=== PATIENT | female | born 1990 | race Caucasian/White ===

== ENCOUNTER 2023-01-30 08:33 | Emergency (ER) | payer MEDICAID, SELFPAY ==
[2023-01-30 08:44] VITALS: BP 118/69; PULSE 78; RESP 16; TEMP 36.2; O2SAT 98; BMI 38.4
--- NOTE | 2023-01-30 09:41 | ED.FEMALEGU ---
HPI - Female Genitourinary General Time Seen by Provider: 09:41 Date Seen: 01/30/23 Chief complaint: Abdominal Pain Stated complaint: lower abdominal pain,mentrual bleeding x 1 month Time Seen by Provider: 01/30/23 09:40 Source: patient and RN notes reviewed Mode of arrival: ambulatory Limitations: no limitations History of Present Illness HPI Narrative: Cassie is a 32-year-old female coming in with vaginal bleeding for over a month now. She has a Nexplanon in place, had it replaced 1 year ago and had had 1 for 3 years prior to that. She sees a Dr. Toussaint elsewhere. She has never had bleeding like this on the Nexplanon. Does sometimes gets a sharp pain in the left lower pelvic area. She states bleeding at times as heavy. Denies any symptomatic blood loss symptoms such as dizziness, weakness, etc. Patient : No Related Data Home Medications Medication Instructions Recorded Confirmed bupropion HCl 150 mg tablet,12 hr 150 mg PO DAILY 01/30/23 01/30/23 sustained-release (Wellbutrin SR) escitalopram oxalate PO 01/30/23 hydroxyzine HCl 10 mg tablet 10 mg PO TID-QID PRN 01/30/23 01/30/23 metformin 500 mg 24 hr 500 mg PO DAILY 01/30/23 01/30/23 tablet,extended release (Glumetza) prazosin 1 mg capsule (Minipress) 1 mg PO DAILY 01/30/23 01/30/23 semaglutide (weight loss) 0.5 0.5 mg subcut QWEEK 01/30/23 01/30/23 mg/0.5 mL subcutaneous pen injector (Wegovy) Allergies Allergy/AdvReac Type Severity Reaction Status Date / Time vancomycin Allergy Intermediate Hives Verified 01/30/23 08:56 Review of Systems Status of ROS: Reports: 6 or more systems reviewed and unremarkable except as noted in History and below Exam Const: Vital Signs, click to edit/add: Vital Signs - 24 hr 01/30/23 08:44 Temperature 97.1 F L Pulse Rate [Pulse Oximeter] 78 Pulse Rate [Right Pulse Oximeter] 78 Respiratory Rate 16 Blood Pressure [Ri ght Upper Arm] 118/69 Pulse Oximetry 98 Oxygen Delivery Me thod Room Air Documenting provider has reviewed patient's vital signs: yes Common normals: no apparent distress, oriented x3, no limitations, healthy appearing and alert General appearance: cooperative, comfortable, well kempt and well developed Nutritional appearance: overweight HENMT: Common normals: normocephalic, head/scalp atraumatic, hearing grossly normal bilaterally and external nose normal Head and scalp: normocephalic and atraumatic Face and sinus: normal facial exam Nose: external nose normal Eye: Common normals: PERRL, EOMs intact bilaterally, conjunctivae normal and no scleral icterus Conjunctiva: conjunctiva(e) normal Pupil: PERRL Neck & C-Spine: Common normals: full ROM, no lymphadenopathy, supple and thyroid normal Thyroid: thyroid normal Resp: Common normals: normal respiratory effort, no retractions, no use of accessory muscles and clear to auscultation bilaterally Auscultation: clear to auscultation bilaterally Cardio: Common normals: regular rate, regular rhythm, S1 normal heart sound, S2 normal heart sound, no gallops, no clicks and no murmurs Rate: regular rate Rhythm: regular rhythm Heart sounds: S1 normal and S2 normal GI: Common normals: Normal to inspection, nondistended, normoactive bowel sounds present, soft to palpation, non-tender, no hepatosplenomegaly and no masses Palpation: soft and no hepatosplenomegaly Neuro: Common normals: oriented x3 Sensorium/orientation: alert Psych: Appearance: well kempt Course Course Hospital Course: Reviewed recommended workup with patient including baseline labs, confirmation of negative status, screening thyroid abnormalities with TSH and CBC to ensure no significant concerning anemia. Would also recommend architectural the you with pelvic ultrasound. Patient would like to proceed with these in the ED today. Have reviewed with her that if these tests come back normal, likely irregular bleeding which can be associated with hormonal contraceptives including the Nexplanon. Vital Signs Vital signs: Initial Vital Signs Temperature 97.1 F L 01/30/23 08:44 Temperature Source Temporal Artery Scan 01/30/23 08:44 Pulse Rate 78 01/30/23 08:44 Respiratory Rate 16 01/30/23 08:44 Blood Pressure 118/69 01/30/23 08:44 Blood Pressure Mean 85 01/30/23 08:44 Blood Pressure Position Sitting 01/30/23 08:44 Pulse Oximetry 98 01/30/23 08:44 Oxygen Delivery Method Room Air 01/30/23 08:44 Vital Signs Temperature 97.1 F L 01/30/23 08:44 Pulse Rate 78 01/30/23 08:44 Respiratory Rate 16 01/30/23 08:44 Blood Pressure 118/69 01/30/23 08:44 Pulse Oximetry 98 01/30/23 08:44 Oxygen Delivery Method Room Air 01/30/23 08:44 Temperature 97.1 F L 01/30/23 08:44 Pulse Rate 78 01/30/23 08:44 Respiratory Rate 16 01/30/23 08:44 Blood Pressure 118/69 01/30/23 08:44 Pulse Oximetry 98 01/30/23 08:44 Oxygen Delivery Method Room Air 01/30/23 08:44 MDM - Female Genitourinary Lab Data Attestation: I reviewed the patient's lab results. Labs: Lab Results 01/30/23 Range/Units 10:21 WBC 8.70 (4.50-11.00) K/uL RBC 4.44 (4.00-5.20) m/uL Hgb 12.3 (12.0-16.0) gm/dL Hct 38.9 (33.0-51.0) % MCV 88 (80-100) fL MCH 28 (26-34) pg MCHC 32 (32-36) gm/dL RDW Coeff of Shantelle 13.2 (11.5-15.5) % Plt Count 244 (140-440) K/uL Neut % (Auto) 60.9 (42.0-72.0) % Lymph % (Auto) 29.4 (20-44) % [place] % (Auto) 6.1 (0.0-11.0) % Eos % (Auto) 2.5 (0.0-7.0) % Baso % (Auto) 0.5 (0.0-3.0) % Neut # (Auto) 5.30 (1.7-7.0) K/uL Lymph # (Auto) 2.56 (0.90-2.90) K/uL [place] # (Auto) 0.50 (0.00-0.90) K/UL Eos # (Auto) 0.22 (0.00-0.50) K/uL Baso # (Auto) 0.04 (0.00-0.30) K/uL Abs Immat Gran (auto) 0.05 (0.00-0.30) K/uL Imm/Tot Granulo (auto) 0.6 % Diff Slide Review Acceptable Review (Acceptable) TSH 1.230 (0.270-4.200) uIU/mL HCG, Qual Negative (Negative) Imaging Data US pelvis: Attestation: I have reviewed the pertinent imaging results. Radiologist's impression: Patient: CASSIE IVAN Facility:?[facility] Patient ID:?[id number] Site Patient ID:?[id number]. Site :?[id number] Study:?US Pelvis TRANSABDOMINAL AND TRANSVAGINAL-01/30/2023 11:07:52 AM Ordering Physician:Gregory Bañuelos Final Report: CLINICAL HISTORY: BLEEDING X 1 MONTH, LLQ PAIN TECHNIQUE: 2D rabago scale ultrasound. In addition color Doppler and spectral Doppler analysis was performed of the pelvis using a transabdominal and transvaginal approach. FINDINGS: The myometrium has a mildly heterogeneous echotexture. section scar noted. The uterus measures 8.4 x 3.9 x 4.9 cm. The endometrial lining measures 4 mm in thickness. The right ovary measures 3.2 x 2.2 x 2.3 cm in size and the left ovary measures 4.0 x 0.9 x 2.0 cm. Simple right ovarian cyst is present measuring 2.3 cm with an adjacent smaller daughter cyst. The ovaries demonstrate normal arterial and venous blood flow on color Doppler and spectral Doppler analysis. There are no suspicious fluid collections within the cul-de-sac. IMPRESSION: No evidence of ovarian torsion or excess pelvic free fluid. Endometrial thickness 4 millimeters. No endometrial fluid. No uterine fibroid. Dictated by Bryn Davis MD @ 01/30/2023 11:46:32 AM (Electronic Signature) Discharge Plan Discharge Clinical Impression: Menometrorrhagia Patient Disposition: Home, Self-Care Condition: Stable Instructions: Abnormal (Dysfunctional) Uterine Bleeding (ED), Menorrhagia (ED) Additional Instructions: Pelvic ultrasound, thyroid testing are all normal. There is no evidence of anemia on your blood work. You will need to follow-up with your primary care provider or splitting machine feeder to discuss further management. This is likely dysfunctional uterine bleeding that is causes it or contributed to by the Nexplanon implant. Activity Level: No Restrictions and Activity as Tolerated Prescriptions: No Action bupropion HCl [Wellbutrin SR] 150 mg tablet sustained-release 12 hr 150 mg PO DAILY escitalopram oxalate [Lexapro] PO Wegovy 0.5 mg/0.5 mL pen injector 0.5 mg subcut QWEEK hydroxyzine HCl 10 mg tablet 10 mg PO TID-QID PRN metformin [Glumetza] 500 mg tablet,ER jessica.retention 24 hr 500 mg PO DAILY prazosin [Minipress] 1 mg capsule 1 mg PO DAILY Follow Up/Referrals: Provider,Not a Local [Primary Care Provider] - Stand Alone Forms: [employer] Info Instructions
--- NOTE | 2023-01-30 09:50 | CRLHL7_ITS ---
For Patients: As a result of the Century Cures Act, medical imaging exams and procedure reports are released immediately into your electronic medical record. You may view this report before your referring provider. If you have questions, please contact your health care provider. CLINICAL HISTORY: BLEEDING X 1 MONTH, LLQ PAIN TECHNIQUE: 2D rabago scale ultrasound. In addition color Doppler and spectral Doppler analysis was performed of the pelvis using a transabdominal and transvaginal approach. FINDINGS: The myometrium has a mildly heterogeneous echotexture. section scar noted. The uterus measures 8.4 x 3.9 x 4.9 cm. The endometrial lining measures 4 mm in thickness. The right ovary measures 3.2 x 2.2 x 2.3 cm in size and the left ovary measures 4.0 x 0.9 x 2.0 cm. Simple right ovarian cyst is present measuring 2.3 cm with an adjacent smaller daughter cyst. The ovaries demonstrate normal arterial and venous blood flow on color Doppler and spectral Doppler analysis. There are no suspicious fluid collections within the cul-de-sac. IMPRESSION: No evidence of ovarian torsion or excess pelvic free fluid. Endometrial thickness 4 millimeters. No endometrial fluid. No uterine fibroid. Dictated by Bryn Davis MD @ 01/30/2023 11:46:32 AM (Electronically Signed)
[2023-01-30 10:38] LABS: Basophils Absolute Auto 0.04 K/uL (0.00-0.30); Basophils Percent Auto 0.5 % (0.0-3.0); Eosinophils Absolute Auto 0.22 K/uL (0.00-0.50); Eosinophils Percent Auto 2.5 % (0.0-7.0); Hematocrit 38.9 % (33.0-51.0); Hemoglobin* 12.3 gm/dL (12.0-16.0); Immature Granulocytes Abs Auto 0.05 K/uL (0.00-0.30); Immature Granulocytes Pct Auto 0.6 %; Lymphocytes Absolute Auto 2.56 K/uL (0.90-2.90); Lymphocytes Percent Auto 29.4 % (20-44); Mean Corpuscular HGB Conc 32 gm/dL (32-36); Mean Corpuscular Hemoglobin 28 pg (26-34); Mean Corpuscular Volume 88 fL (80-100); Monocytes Percent Auto 6.1 % (0.0-11.0); Neutrophils Percent Auto 60.9 % (42.0-72.0); RDW Coefficient of Variation % 13.2 % (11.5-15.5); Red Blood Count 4.44 m/uL (4.00-5.20)
[2023-01-30 10:42] LABS: Slide Review Reflex Yes
[2023-01-30 11:02] LABS: HCG Qualitative Serum* Negative (Negative)
[2023-01-30 11:15] LABS: Platelet Count* 244 K/uL (140-440)
[2023-01-30 11:30] LABS: Slide Review Acceptable Review (Acceptable)
== END 2023-01-30 12:42 | disposition home or self-care (01) ==
PROVIDERS: Emergency Provider Family Medicine
DX: N92.1 Excessive and frequent menstruation with irregular cycle (principal)
CPT/HCPCS: 36415; 76830; 76856; 84443; 84703; 85025; 93976; 99284

== ENCOUNTER 2023-02-20 12:42 | Emergency (ER) | payer MEDICAID, SELFPAY ==
[2023-02-20 12:55] VITALS: BP 125/79; PULSE 86; RESP 24; TEMP 35.4; O2SAT 98; BMI 38.4
--- NOTE | 2023-02-20 13:13 | ED.GENADULT ---
HPI - General Adult General Chief complaint: Cough Stated complaint: Covid+, chest pain, headache Time Seen by Provider: 02/20/23 12:55 Source: patient Mode of arrival: ambulatory Limitations: no limitations History of Present Illness HPI narrative: 32-year-old female coming in today complaining of cough. Patient tested positive for COVID-19 on Sunday. She states that she continues to have fevers on and off, last one was last night it was up to 101. She feels short of breath when she is having a coughing spell. She is concerned because she does not have any more inhalers at home, she has not needed to use any inhalers for a long time at she has not been ill. She states that she has exercise induced asthma. She denies any chest pain or abdominal discomfort. Appetite has been down. Related Data Home Medications Medication Instructions Recorded Confirmed bupropion HCl 150 mg tablet,12 hr 150 mg PO DAILY 01/30/23 01/30/23 sustained-release (Wellbutrin SR) escitalopram oxalate PO 01/30/23 hydroxyzine HCl 10 mg tablet 10 mg PO TID-QID PRN 01/30/23 01/30/23 metformin 500 mg 24 hr 500 mg PO DAILY 01/30/23 01/30/23 tablet,extended release (Glumetza) prazosin 1 mg capsule (Minipress) 1 mg PO DAILY 01/30/23 01/30/23 semaglutide (weight loss) 0.5 0.5 mg subcut QWEEK 01/30/23 01/30/23 mg/0.5 mL subcutaneous pen injector (Wegovy) Allergies Allergy/AdvReac Type Severity Reaction Status Date / Time vancomycin Allergy Intermediate Hives Verified 01/30/23 08:56 Review of Systems Status of ROS: Reports: 10 or more systems reviewed and unremarkable except as noted in History and below PFSH PFS Social History Smoking Status: Current every day smoker What tobacco products do you use: cigarettes Do you use any of these nicotine containing products: Vaping Products Second hand tobacco smoke exposure: No How often do you have a drink containing alcohol: never How often do you have six or more drinks on one occasion: Never AUDIT-C Alcohol total score: 0 Non-prescribed substance use: denies use service: No Exam Narrative: Exam Narrative: Obese, well-developed patient in no acute distress. Alert and oriented. Answers questions appropriately. Mood and affect are appropriate. Thoughts are goal oriented and rational. No tangential or magical thinking noted. Patient speaks in full sentences without needing to catch their breath. Coughs frequently. HEENT: Normocephalic atraumatic. Pupils are equally round reactive to light. Extraocular muscles are intact. Conjunctivae are moist without any icterus noted. Moist mucous membranes. Posterior pharynx is normal. Neck is soft without any lymphadenopathy. Cardiovascular: Heart is regular rate and rhythm S1 and S2 are present without any murmurs. Lungs: Clear to auscultation bilaterally no wheezes rhonchi or rales are appreciated. Patient takes deep breaths without any discomfort. Abdomen: Soft and nontender nondistended with normal bowel sounds. Skin: Well perfused without any obvious rashes. Const: Vital Signs, click to edit/add: Vital Signs - 24 hr 02/20/23 12:55 Temperature 95.8 F L Pulse Rate [Pulse Oximeter] 86 Respiratory Rate 24 [facility] 125/79 Pulse Oximetry 98 Oxygen Delivery Me thod Room Air Course Vital Signs Vital signs: Initial Vital Signs Temperature 95.8 F L 02/20/23 12:55 Temperature Source Temporal Artery Scan 02/20/23 12:55 Pulse Rate 86 02/20/23 12:55 Pulse Rhythm Regular 02/20/23 12:55 Respiratory Rate 24 02/20/23 12:55 Blood Pressure 125/79 02/20/23 12:55 Blood Pressure Mean 94 02/20/23 12:55 Blood Pressure Position Supine 02/20/23 12:55 Pulse Oximetry 98 02/20/23 12:55 Oxygen Delivery Method Room Air 02/20/23 12:55 Vital Signs Temperature 95.8 F L 02/20/23 12:55 Pulse Rate 86 02/20/23 12:55 Respiratory Rate 24 02/20/23 12:55 Blood Pressure 125/79 02/20/23 12:55 Pulse Oximetry 98 02/20/23 12:55 Oxygen Delivery Method Room Air 02/20/23 12:55 Temperature 95.8 F L 02/20/23 12:55 Pulse Rate 86 02/20/23 12:55 Respiratory Rate 24 02/20/23 12:55 Blood Pressure 125/79 08/29/23 12:55 Pulse Oximetry 98 02/20/23 12:55 Oxygen Delivery Method Room Air 02/20/23 12:55 Medical Decision Making MDM Narrative Medical decision making narrative: 32-year-old female with COVID-19. She states that she felt run down on Sunday but the coughing and fever started on Sunday. Therefore, we are within 72 hours of initiation of symptoms. Given that she has normal vital signs and is not feeling short of breath, I do not think further testing is needed at this time. Given that she does have a history of exercise-induced asthma I will put her on Paxil of id. I did look through the liver pool COVID-19 chart to make sure there are no significant interactions with her multiple medications. I do not feel the need to test her creatinine at this time as she has no history of kidney disease and she is young. I also send her home with a prescription for albuterol. These 2 prescriptions were hand written as she needs to show them to her physician as she is a restricted recipient when it comes to where she gets her medications. Discharge Plan Discharge Clinical Impression: COVID-19 Patient Disposition: Home, Self-Care Condition: Stable Additional Instructions: Take Paxlovid as prescribed. Use inhaler as needed. Return to ER if you are getting worse or develop any concerning symptoms. Both medications hand written. Prescriptions: No Action bupropion HCl [Wellbutrin SR] 150 mg tablet sustained-release 12 hr 150 mg PO DAILY escitalopram oxalate [Lexapro] PO Wegovy 0.5 mg/0.5 mL pen injector 0.5 mg subcut QWEEK hydroxyzine HCl 10 mg tablet 10 mg PO TID-QID PRN metformin [Glumetza] 500 mg tablet,ER jessica.retention 24 hr 500 mg PO DAILY prazosin [Minipress] 1 mg capsule 1 mg PO DAILY Follow Up/Referrals: Provider,Not a Local [Primary Care Provider] - Stand Alone Forms: [employer] Info Instructions
== END 2023-02-20 13:32 | disposition home or self-care (01) ==
PROVIDERS: Emergency Provider Family Medicine
DX: U07.1 COVID-19 (principal)
CPT/HCPCS: 99283; 99284

== ENCOUNTER 2023-06-22 17:28 | Outpatient (REF) | payer MEDICAID, SELFPAY ==
[2023-06-22 17:56] LABS: Albumin* 4.1 g/dL (3.3-5.0); Chloride* 108 mmol/L (96-114)
[2023-06-22 17:57] LABS: Potassium* 4.6 mmol/L (3.6-5.1); Sodium* 138 mmol/L (135-149)
[2023-06-22 17:59] LABS: Anion Gap 10 mEq/L (7-15); Aspartate Amino Transferase* 23 U/L (12-35); Bilirubin Direct* 0.1 mg/dL (0.0-0.5); Bilirubin Total* 0.4 mg/dL (0.1-1.5); Carbon Dioxide* 20 mmol/L (20-32); Creatinine* 0.6 mg/dL (0.5-1.5); Estimated Glomerular Filt Rate 124 ml/min
[2023-06-22 18:00] LABS: Alanine Aminotransferase* 21 U/L (4-35); Alkaline Phosphatase* 80 U/L (40-150); Blood Urea Nitrogen* 11 mg/dL (5-24); Calcium* 9.4 mg/dL (8.4-10.6); Cholesterol* 176 mg/dL (90-199); Creatinine Urine 106.9 mg/dL; Glucose* 88 mg/dL (60-115); HDL Cholesterol* 38 mg/dL (>=50); Lipase* 67 U/L (23-300); Triglycerides* 109 mg/dL (40-149)
[2023-06-22 18:05] LABS: Microalbumin Creatinine Ratio 0 mg/g (0-30); Microalbumin Urine < 1 mg/dL
[2023-06-22 18:06] LABS: LDL Cholesterol Calculated 116 mg/dL (<100)
[2023-06-22 19:13] LABS: Hemoglobin A1C* 5.1 % (0-5.6)
== END 2023-06-22 17:29 | disposition home or self-care (01) ==
LOC: NPINS 17:28
DX: E66.01 Morbid (severe) obesity due to excess calories (principal); R63.2 Polyphagia; Z79.899 Other long term (current) drug therapy
CPT/HCPCS: 80048; 80061; 80076; 82043; 82570; 83036; 83690

== ENCOUNTER 2023-12-12 23:08 | Emergency (ER) | payer MEDICAID, SELFPAY ==
[2023-12-12 23:14] VITALS: BP 125/77; PULSE 83; RESP 20; TEMP 36.7; O2SAT 99; BMI 34.9
--- NOTE | 2023-12-12 23:54 | ED.NAVMDI ---
HPI - Nausea/Vomiting/Diarrhea General Chief complaint: Nausea/Vomiting Stated complaint: allergic reaction to wegovy Time Seen by Provider: 12/12/23 23:35 History of Present Illness HPI Narrative: This 33-year-old female comes in reporting nausea and vomiting and generalized malaise over the past 2 or 3 hours after taking would go VD. She states that she was taking it a couple weeks ago and had similar symptoms but much more mild. She had not taken this medicine for a couple weeks until today and soon thereafter taking it developed these symptoms. She arrives here with normal vital signs. She states she is otherwise in good health. She had nausea with repeated vomiting episodes but does not report any diarrhea. Related Data Home Medications ?Medication ?Instructions ?Recorded ?Confirmed metformin 500 mg 24 hr 500 mg PO DAILY 01/30/23 12/12/23 tablet,extended release (gastric retention) (Glumetza) prazosin 1 mg capsule (Minipress) 1 mg PO DAILY 01/30/23 12/12/23 bupropion HCl 150 mg 24 hr tablet, 150 mg PO DAILY 12/12/23 12/12/23 extended release docusate sodium 100 mg capsule 100 mg PO DAILY 12/12/23 12/12/23 (Stool Softener) ergocalciferol (vitamin D2) 1,250 1,250 mcg PO Q7D 12/12/23 12/12/23 mcg (50,000 unit) capsule (Vitamin D2) escitalopram oxalate 20 mg tablet 20 mg PO DAILY 12/12/23 12/12/23 semaglutide (weight loss) 1.7 1.7 mg subcut Q7D 12/12/23 12/12/23 mg/0.75 mL subcutaneous pen injector (Wegovy) Allergies Allergy/AdvReac Type Severity Reaction Status Date / Time vancomycin Allergy Intermediate Hives Verified 12/12/23 23:14 Review of Systems Status of ROS: Reports: 10 or more systems reviewed and unremarkable except as noted in History and below Narrative: Constitutional: No fevers, no weight gain or loss. Eyes: No discharge. No vision changes. HENT: No congestion, no sore throat, no ear pain. Cardiovascular: No chest pain, no palpitations. Respiratory: No shortness of breath, no wheezes, no cough. Gastrointestinal: No abdominal pain, no diarrhea. Genitourinary: No dysuria, no hematuria. Musculoskeletal: Normal range of motion. Skin: No rashes, no pruritis. Neurological: No dizziness, weakness, sensory change, speech change. Endo/Heme/Allergies: No bruising or bleeding. No polydipsia. Pysch: no suicidality, no anxiety, no insomnia. All other systems reviewed and are negative. [facility] Social History Smoking Status: Current every day smoker What tobacco products do you use: cigarettes Do you use any of these nicotine containing products: Vaping Products Second hand tobacco smoke exposure: No How often do you have a drink containing alcohol: never How often do you have six or more drinks on one occasion: Never AUDIT-C Alcohol total score: 0 Non-prescribed substance use: denies use service: No Exam Narrative: Exam Narrative: Constitutional: Well-developed, well-nourished, no acute distress. HEENT: Normocephalic, atraumatic. Neck: Normal range of motion. Nontender. Supple. Heart: Regular. No murmurs. Normal rate. Intact distal pulses. Lungs: Clear to auscultation. No chest discomfort. No wheezes, rhonchi, or rales. Abdomen: Normal bowel sounds. Upper epigastric tenderness. No rebound tenderness. Genitalia: Deferred. Back: No midline tenderness. Normal range of motion. Extremities: Normal range of motion. No injury. Skin: Intact. No rash. Warm. No erythema or pallor. Neurologic: No altered sensation. No weakness. Alert and oriented. Psychiatric: No suicidality. No anxiety or depression. No insomnia. Nursing notes and vitals signs are reviewed. Const: Vital Signs, click to edit/add: Vital Signs - 24 hr 12/12/23 23:14 Temperature 98.1 F Pulse Rate [Right Pulse Oximeter] 83 Respiratory Rate 20 Blood Pressure [Le ft Upper Arm] 125/77 Pulse Oximetry 99 Oxygen Delivery Me thod Room Air Course Vital Signs Vital signs: Initial Vital Signs Temperature 98.1 F 12/12/23 23:14 Temperature Source Temporal Artery Scan 12/12/23 23:14 Pulse Rate 83 12/12/23 23:14 Respiratory Rate 20 12/12/23 23:14 Blood Pressure 125/77 12/12/23 23:14 Blood Pressure Mean 93 12/12/23 23:14 Blood Pressure Position Sitting 12/12/23 23:14 Pulse Oximetry 99 12/12/23 23:14 Oxygen Delivery Method Room Air 12/12/23 23:14 Vital Signs Temperature 98.1 F 12/12/23 23:14 Pulse Rate 83 12/12/23 23:14 Respiratory Rate 20 12/12/23 23:14 Blood Pressure 125/77 12/12/23 23:14 Pulse Oximetry 99 12/12/23 23:14 Oxygen Delivery Method Room Air 12/12/23 23:14 Temperature 98.1 F 12/12/23 23:14 Pulse Rate 83 12/12/23 23:14 Respiratory Rate 20 12/12/23 23:14 Blood Pressure 125/77 12/12/23 23:14 Pulse Oximetry 99 12/12/23 23:14 Oxygen Delivery Method Room Air 12/12/23 23:14 MDM - Nausea/Vomiting/Diarrhea MDM Narrative Medical decision making narrative: This patient comes in reporting generalized malaise with nausea and repeated vomiting after taking would go VD. She arrives with normal vital signs. I did discuss diagnostic and treatment options with the patient but indicated reassurance is with her exam and normal vital signs. The patient did not wish to have any labs drawn but was agreeable to IV fluids and medications to treat her symptoms. She has a remote history of IV drug use and the nurse was unable to get an IV in place with several tries so the patient elected to forego IV fluids and medications. She received Toradol 30 mg intramuscularly and Zofran 4 mg as an oral disintegrating tablet. She is okay to be discharged home and did receive [facility] prescription for more tablets of Zofran. Discharge Plan Discharge Prescriptions: No Action metformin [Glumetza] 500 mg tablet,ER jessica.retention 24 hr 500 mg PO DAILY prazosin [Minipress] 1 mg capsule 1 mg PO DAILY docusate sodium [Stool Softener] 100 mg capsule 100 mg PO DAILY ergocalciferol (vitamin D2) [Vitamin D2] 1,250 mcg (50,000 unit) capsule 1,250 mcg PO Q7D bupropion HCl 150 mg tablet extended release 24 hr 150 mg PO DAILY escitalopram oxalate 20 mg tablet 20 mg PO DAILY Wegovy 1.7 mg/0.75 mL pen injector 1.7 mg subcut Q7D Follow Up/Referrals: Provider,Not a Local [Primary Care Provider] -
[2023-12-13] MEDS: ONDANSETRON ODT 4 MG TAB PO (00:02)
[2023-12-13] MEDS: KETOROLAC 30 MG/ML inj IM (00:02)
== END 2023-12-13 00:07 | disposition home or self-care (01) ==
LOC: ED 12-13 00:05
PROVIDERS: Emergency Provider Emergency Medicine Emergency Medical Services
DX: R11.2 Nausea with vomiting, unspecified (principal); R53.81 Other malaise
CPT/HCPCS: 96374; 96375; 99284; A9270; J1885

== ENCOUNTER 2024-01-03 18:28 | Emergency (ER) | payer MEDICAID, SELFPAY ==
[2024-01-03 19:09] VITALS: BP 113/72; PULSE 71; RESP 16; TEMP 36.4; O2SAT 97; BMI 33.5
--- NOTE | 2024-01-03 21:09 | PC.NURSE ---
patient left waiting room at 2004 per camera, computer security coordinator went out to parking lot to check if patient was outside, patient LWBS and did not signs paperwork, left and did not tell registration she was leaving.
== END 2024-01-03 21:45 | disposition left against medical advice (07) ==
LOC: ED 21:40
PROVIDERS: Emergency Provider Family Medicine
DX: Z53.21 Procedure and treatment not carried out due to patient leaving prior to being seen by health care provider (principal)

== ENCOUNTER 2024-01-13 18:04 | Emergency (ER) | payer MEDICAID, SELFPAY ==
[2024-01-13 18:08] VITALS: BP 138/80; PULSE 102; RESP 20; TEMP 36.6; O2SAT 100; BMI 34.9
--- NOTE | 2024-01-13 18:23 | CRLHL7_ITS ---
For Patients: As a result of the Cures Act, medical imaging exams and procedure reports are released immediately into your electronic medical record. You may view this report before your referring provider. If you have questions, please contact your health care provider. INDICATION: Posttraumatic coccydynia. COMPARISON: None available. TECHNIQUE: AP view of the pelvis (1 image). FINDINGS: No fracture is identified. Unremarkable soft tissues. Incidental right pelvic phleboliths. IMPRESSION: No acute traumatic injury is identified. Dictated by Christopher Guzman MD @ 01/13/2024 6:49:23 PM (Electronically Signed)
[2024-01-13] MEDS: KETOROLAC 30 MG/ML inj IM (18:38)
--- NOTE | 2024-01-13 18:57 | ED.GENADULT ---
HPI - General Adult General Date Seen: 01/13/24 Chief complaint: Fall/Minor Trauma Stated complaint: injured tailbone during fall Time Seen by Provider: 01/13/24 18:05 Source: patient Mode of arrival: ambulatory Limitations: no limitations History of Present Illness HPI narrative: Patient is a 33-year-old woman here for evaluation after a fall down a few stairs a few hours ago. She did hit the back of her head, does not believe she was knocked out however. She does not have head or neck pain. Her primary complaint is left gluteal pain, she finds it hard to sit secondary to tenderness in that area. She is ambulatory without difficulty. She did bruise her arms as well as her left ankle. She does not think anything else is broken. No anticoagulation. Related Data Home Medications ?Medication ?Instructions ?Recorded ?Confirmed prazosin 1 mg capsule (Minipress) 1 mg PO DAILY 01/30/23 12/12/23 bupropion HCl 150 mg 24 hr tablet, 150 mg PO DAILY 12/12/23 01/03/24 extended release docusate sodium 100 mg capsule 100 mg PO DAILY 12/12/23 12/12/23 (Stool Softener) ergocalciferol (vitamin D2) 1,250 1,250 mcg PO Q7D 12/12/23 01/03/24 mcg (50,000 unit) capsule (Vitamin D2) escitalopram oxalate 20 mg tablet 20 mg PO DAILY 12/12/23 01/03/24 semaglutide (weight loss) 1.7 1.7 mg subcut Q7D 12/12/23 01/03/24 mg/0.75 mL subcutaneous pen injector (Wegovy) Allergies Allergy/AdvReac Type Severity Reaction Status Date / Time vancomycin Allergy Intermediate Hives Verified 01/03/24 19:08 Review of Systems Status of ROS: Reports: 6 or more systems reviewed and unremarkable except as noted in History and below PFSH PFSH Social History Smoking Status: Current every day smoker What tobacco products do you use: cigarettes Do you use any of these nicotine containing products: Vaping Products Second hand tobacco smoke exposure: No How often do you have a drink containing alcohol: never How often do you have six or more drinks on one occasion: Never AUDIT-C Alcohol total score: 0 Non-prescribed substance use: denies use service: No Exam Narrative: Exam Narrative: Vital signs as noted above. In general, an alert, well-appearing patient. Head: Normocephalic, atraumatic. Eyes: Pupils are equal reactive. Extraocular movements are full. Conjunctivae are normal. ENT: Mucous membranes are moist. Neck: Supple without lymphadenopathy. Nontender to palpation. Heart: Regular rate and rhythm. No murmur or rub. Lungs: Clear bilaterally. No increased work of breathing, crackles or wheezes. Abdomen: Soft and nontender. No organomegaly. Back: Back is atraumatic. She has some bruising developing in the left gluteal area, has some tenderness with just light palpation of the soft tissues. No significant swelling at this time. Extremities: Well perfused. No edema. No calf tenderness. Pulses intact. She has a small abrasion and a little bit of swelling on the lateral ankle on the left. No bony tenderness. Full range of motion. Some bruising noted on her forearms bilaterally without deformity or significant swelling. Neurologic: Patient is alert and oriented to person and place. Speech is fluent. Face is symmetric. Moves all extremities equally. Affect: Normal. Skin: Warm and dry. Well perfused. Const: Vital Signs, click to edit/add: Vital Signs - 24 hr 01/13/24 18:08 Temperature 97.8 F Pulse Rate [Pulse Oximeter] 102 H Respiratory Rate 20 Blood Pressure [Ri ght Upper Arm] 138/80 Pulse Oximetry 100 Oxygen Delivery Me thod Room Air Documenting provider has reviewed patient's vital signs: yes Course Course ED Course: I ordered x-rays of the pelvis. She declined x-rays of other sites. By my review the pelvis appears normal without evidence of fracture. Final radiology read as follows:FINDINGS: No fracture is identified. Unremarkable soft tissues. Incidental right pelvic phleboliths. IMPRESSION: No acute traumatic injury is identified. She had a shot of Toradol here. She is feeling improved. Comfortable with the diagnosis of contusion, no evidence of significant hematoma at this time but we discussed that that is a possibility as well. Use ice, Tylenol and or ibuprofen as needed. Return for severe worsening symptoms at any time otherwise primary care follow-up if not gradually improving over the next few days to week. Vital Signs Vital signs: Initial Vital Signs Temperature 97.8 F 01/13/24 18:08 Temperature Source Temporal Artery Scan 01/13/24 18:08 Pulse Rate 102 H 01/13/24 18:08 Respiratory Rate 20 01/13/24 18:08 Blood Pressure 138/80 01/13/24 18:08 Blood Pressure Mean 99 01/13/24 18:08 Blood Pressure Position Standing 01/13/24 18:08 Pulse Oximetry 100 01/13/24 18:08 Oxygen Delivery Method Room Air 01/13/24 18:08 Vital Signs Temperature 97.8 F 01/13/24 18:08 Pulse Rate 102 H 01/13/24 18:08 Respiratory Rate 20 01/13/24 18:08 Blood Pressure 138/80 01/13/24 18:08 Pulse Oximetry 100 01/13/24 18:08 Oxygen Delivery Method Room Air 01/13/24 18:08 Temperature 97.8 F 01/13/24 18:08 Pulse Rate 102 H 01/13/24 18:08 Respiratory Rate 20 01/13/24 18:08 Blood Pressure 138/80 01/13/24 18:08 Pulse Oximetry 100 01/13/24 18:08 Oxygen Delivery Method Room Air 01/13/24 18:08 Medications Administered Medications: Discontinued Medications Generic Name Dose Route Start Last Admin Trade Name Freq PRN Reason Stop Dose Admin Ketorolac Tromethamine 30 mg 01/13/24 18:22 01/13/24 18:38 Ketorolac 30 Mg/Ml Inj IM 01/13/24 18:23 30 mg ONCE ONE Administration Discharge Plan Discharge Clinical Impression: Contusion of left buttock Patient Disposition: Home, Self-Care Condition: Stable Instructions: Contusion in Adults (ED) Additional Instructions: Ice, ibuprofen and/or Tylenol as needed over the next few days to week. If symptoms are not gradually improving at that time, follow-up primary care. Return any time for acute worsening or new symptoms. Prescriptions: No Action prazosin [Minipress] 1 mg capsule 1 mg PO DAILY docusate sodium [Stool Softener] 100 mg capsule 100 mg PO DAILY ergocalciferol (vitamin D2) [Vitamin D2] 1,250 mcg (50,000 unit) capsule 1,250 mcg PO Q7D bupropion HCl 150 mg tablet extended release 24 hr 150 mg PO DAILY escitalopram oxalate 20 mg tablet 20 mg PO DAILY Wegovy 1.7 mg/0.75 mL pen injector 1.7 mg subcut Q7D Follow Up/Referrals: Provider,Not a Local [Primary Care Provider] - Stand Alone Forms: [employer] Info Instructions
== END 2024-01-13 19:06 | disposition home or self-care (01) ==
PROVIDERS: Emergency Provider Emergency Medicine
DX: S30.0XXA Contusion of lower back and pelvis, initial encounter (principal); W10.9XXA Fall (on) (from) unspecified stairs and steps, initial encounter
CPT/HCPCS: 72170; 96372; 99283; J1885

== ENCOUNTER 2024-02-20 12:02 | Emergency (ER) | payer MEDICAID, SELFPAY ==
[2024-02-20 12:09] VITALS: BP 124/83; PULSE 98; RESP 24; TEMP 36.6; O2SAT 99; BMI 35.6
--- NOTE | 2024-02-20 12:26 | ED_ITS ---
HPI - General Adult General Time Seen by Provider: 12:27 Date Seen: 02/20/24 Chief complaint: Cough Stated complaint: Cough, fever, shortness of breath Time Seen by Provider: 02/20/24 12:04 Source: patient and RN notes reviewed Mode of arrival: ambulatory Limitations: no limitations History of Present Illness HPI narrative: This 33-year-old female with underlying asthma is coming in with cough and illness. Her symptoms started abruptly about a p.m. and Sunday night. She states she had a tele visit with her primary doctor they wondered if this could be influenza. Cough is productive, she also has sore throat, nasal congestion, fevers and chills at times. She does not have an albuterol inhaler. She states she was worried yesterday because she was wheezing significantly. They have a co-worker that has been testing negative for COVID but her whole family is reportedly sick with COVID. Patient is here with another individual whom she feels she got the illness from and she is still sick herself. Related Data Home Medications ?Medication ?Instructions ?Recorded ?Confirmed prazosin 1 mg capsule (Minipress) 1 mg PO DAILY 01/30/23 12/12/23 bupropion HCl 150 mg 24 hr tablet, 150 mg PO DAILY 12/12/23 01/03/24 extended release docusate sodium 100 mg capsule 100 mg PO DAILY 12/12/23 12/12/23 (Stool Softener) ergocalciferol (vitamin D2) 1,250 1,250 mcg PO Q7D 12/12/23 01/03/24 mcg (50,000 unit) capsule (Vitamin D2) escitalopram oxalate 20 mg tablet 20 mg PO DAILY 12/12/23 01/03/24 semaglutide (weight loss) 1.7 1.7 mg subcut Q7D 12/12/23 01/03/24 mg/0.75 mL subcutaneous pen injector (Wegovy) Previous Rx's ?Medication ?Instructions ?Recorded albuterol sulfate 90 mcg/actuation 2 puff inhalation Q4-6H PRN 02/20/24 aerosol inhaler (Ventolin HFA) shortness of breath or wheezing #8.5 grams prednisone 20 mg tablet 20 mg PO BID #10 tabs 02/20/24 Allergies Allergy/AdvReac Type Severity Reaction Status Date / Time vancomycin Allergy Intermediate Hives Verified 01/03/24 19:08 Review of Systems Status of ROS: Reports: 6 or more systems reviewed and unremarkable except as noted in History and below [facility] Social History Smoking Status: Current every day smoker What tobacco products do you use: cigarettes Do you use any of these nicotine containing products: Vaping Products Second hand tobacco smoke exposure: No How often do you have a drink containing alcohol: never How often do you have six or more drinks on one occasion: Never AUDIT-C Alcohol total score: 0 Non-prescribed substance use: denies use service: No Exam Const: Vital Signs, click to edit/add: Vital Signs - 24 hr 02/20/24 12:09 Temperature 97.9 F Pulse Rate [Right Pulse Oximeter] 98 Respiratory Rate 24 Blood Pressure [Ri ght Upper Arm] 124/83 Pulse Oximetry 99 Oxygen Delivery Me thod Room Air This 33-year-old female is alert, interactive, feels warm but is not documented in temperature at this time. Skin without any rash. Sclera clear, conjugate gaze. Does have harsh sounding cough but note no wheezing. Sclera clear. Anterior nares normal, oropharynx with normal mucosa, no exudates or erythema. Oral mucosa is well hydrated. Neck is supple, no adenopathy. Speech is normal. Lungs are clear without wheezing or crackles at this time but there is prolonged expiratory phase. CV regular rate and rhythm, no murmur. Documenting provider has reviewed patient's vital signs: yes Course Course ED Course: Given complaints of fevers, will do a portable chest x-ray. Nursing staff appropriately did triple viral swab. Reviewed with patient that influenza is part of that swab and certainly she will be tested for that. Right now she is hemodynamically stable, afebrile, no hypoxia. Do not think we need any labs or further workup based on her presentation and history at this time. We did review that there are a lot of respiratory viruses outside of the 3 that she is being tested for that certainly seemed to be prevalent in the environment. We will obtain her chest x-ray in the viral swab and come up with a plan of treatment for her. Reevaluation(s) Time of Reevaluation #1: 13:28 Reevaluation #1: Reviewed normal chest x-ray and negative triple viral swab with patient. She declines Robitussin with codeine, declines work note. She will take prednisone and albuterol. We discussed that this is viral induced at this point, needs to watch for worsening and be re-evaluated. Vital Signs Vital signs: Initial Vital Signs Temperature 97.9 F 02/20/24 12:09 Temperature Source Temporal Artery Scan 02/20/24 12:09 Pulse Rate 98 02/20/24 12:09 Pulse Rhythm Regular 02/20/24 12:09 Pulse Strength 3+ Normal 02/20/24 12:09 Respiratory Rate 24 02/20/24 12:09 Blood Pressure 124/83 02/20/24 12:09 Blood Pressure Mean 96 02/20/24 12:09 Blood Pressure Position Sitting 02/20/24 12:09 Pulse Oximetry 99 02/20/24 12:09 Oxygen Delivery Method Room Air 02/20/24 12:09 Vital Signs Temperature 97.9 F 02/20/24 12:09 Pulse Rate 98 02/20/24 12:09 Respiratory Rate 24 02/20/24 12:09 Blood Pressure 124/83 02/20/24 12:09 Pulse Oximetry 99 02/20/24 12:09 Oxygen Delivery Method Room Air 02/20/24 12:09 Temperature 97.9 F 02/20/24 12:09 Pulse Rate 98 02/20/24 12:09 Respiratory Rate 24 02/20/24 12:09 Blood Pressure 124/83 02/20/24 12:09 Pulse Oximetry 99 02/20/24 12:09 Oxygen Delivery Method Room Air 02/20/24 12:09 Medical Decision Making Lab Data Lab results reviewed: Yes I reviewed the patient's lab results Labs: Lab Results 02/20/24 Range/Units 12:20 SARS-CoV-2 (PCR) Negative SARS-CoV-2 (Negative) Influenza Type A (PCR) Negative PCR FLU A (Negative) Influenza Type B (PCR) Negative PCR FLU B (Negative) RSV (PCR) Negative PCR RSV (Negative) Imaging Data Chest x-ray: Attestation: I have reviewed the pertinent imaging results. My impression: I see no evidence of any consolidation or infiltrates suggestive of acute infectious process on my preliminary review. Radiologist's impression: Patient: CASSIE IVAN Facility:[facility] Patient ID:?[id number] Site Patient ID:?[id number]. Site :?[id number] Study:?XRay-Chest 1 VIEW PORTABLE-02/20/2024 1:04:01 PM Ordering Physician:Gregory Bañuelos Final Report: INDICATION: : cough/ill, asthma COMPARISON: None TECHNIQUE: One view(s) of the chest FINDINGS: The cardiomediastinal silhouette and pulmonary vasculature are unremarkable. There is no focal airspace consolidation, pleural effusion, or pneumothorax. No displaced fractures. IMPRESSION: No acute cardiopulmonary process. Dictated by Saji Valenzuela MD @ 02/20/2024 1:10:01 PM (Electronic Signature) Discharge Plan Discharge Clinical Impression: Upper respiratory infection, viral Asthma Qualifiers: Asthma severity: unspecified severity Asthma persistence: unspecified Asthma complication type: unspecified Qualified Code(s): J45.909 - Unspecified asthma, uncomplicated Patient Disposition: Home, Self-Care Condition: Stable Instructions: Upper Respiratory Infection (ED) Additional Instructions: Can use etod-roh-vwejrxa medicines following directions for symptom control. Use albuterol inhaler for wheezing or coughing per prescription. Start prednisone and take as prescribed, recommend taking with food to limit irritant affects of the stomach. If you are not improving over the next week, have concerns at any point for worsening or increased difficulty with breathing, do recommend re-evaluation. Activity Level: Activity as Tolerated Prescriptions: New prednisone 20 mg tablet 20 mg PO BID Qty: 10 0RF albuterol sulfate [Ventolin HFA] 90 mcg/actuation HFA aerosol inhaler 2 puff inhalation Q4-6H PRN (Reason: shortness of breath or wheezing) Qty: 8.5 0RF No Action prazosin [Minipress] 1 mg capsule 1 mg PO DAILY docusate sodium [Stool Softener] 100 mg capsule 100 mg PO DAILY ergocalciferol (vitamin D2) [Vitamin D2] 1,250 mcg (50,000 unit) capsule 1,250 mcg PO Q7D bupropion HCl 150 mg tablet extended release 24 hr 150 mg PO DAILY escitalopram oxalate 20 mg tablet 20 mg PO DAILY Wegovy 1.7 mg/0.75 mL pen injector 1.7 mg subcut Q7D Follow Up/Referrals: Provider,Not a Local [Primary Care Provider] - Stand Alone Forms: [employer] Info Instructions
--- NOTE | 2024-02-20 12:32 | CRLHL7_ITS ---
For Patients: As a result of the Cures Act, medical imaging exams and procedure reports are released immediately into your electronic medical record. You may view this report before your referring provider. If you have questions, please contact your health care provider. INDICATION: : cough/ill, asthma COMPARISON: None TECHNIQUE: One view(s) of the chest FINDINGS: The cardiomediastinal silhouette and pulmonary vasculature are unremarkable. There is no focal airspace consolidation, pleural effusion, or pneumothorax. No displaced fractures. IMPRESSION: No acute cardiopulmonary process. Dictated by Saji Valenzulea MD @ 02/20/2024 1:10:01 PM (Electronically Signed)
[2024-02-20 13:10] LABS: PCR FLU A Negative PCR FLU A (Negative); PCR FLU B Negative PCR FLU B (Negative); PCR RSV Negative PCR RSV (Negative); SARS PCR* Negative SARS-CoV-2 (Negative)
== END 2024-02-20 13:40 | disposition home or self-care (01) ==
PROVIDERS: Emergency Provider Family Medicine
DX: J06.9 Acute upper respiratory infection, unspecified (principal); J45.909 Unspecified asthma, uncomplicated
CPT/HCPCS: 71045; 87631; 99283; 99284

== ENCOUNTER 2024-09-04 21:51 | Emergency (ER) | payer MEDICAID, SELFPAY ==
[2024-09-04 22:05] VITALS: BP 143/93; PULSE 88; RESP 16; TEMP 37.1; O2SAT 98; BMI 37.0
--- NOTE | 2024-09-04 22:26 | ED_ITS ---
HPI - General Adult General Chief complaint: Lower Extremity Swelling Stated complaint: Both legs red, swollen, recent flight from [place] Time Seen by Provider: 09/04/24 22:26 History of Present Illness HPI narrative: flew back from [place] today. last couple days bilat lower extremity swelling knees down to feet, red skin. hot to touch. pain in feet. SOB and dizziness started yesterday. denies hx of clots, does state she gets frequent cellulitis in lower extremities. 34-year-old woman presenting to the emergency department With increasing swelling and redness of her legs. She did receive a sunburn while she was in [facility]. This was only over thighs and was not severe. Then the next day, 4 days ago, began to have increasing swelling and redness in her lower legs. 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 She has felt some chills but has not measured a fever. She has had her legs elevated for a couple of days. Just flew back today though from [place] as noted. Is having inc reasing swelling about the ankle and knee becoming increasingly uncomfortable. Increasingly tender Related Data Home Medications ?Medication ?Instructions ?Recorded ?Confirmed prazosin 1 mg capsule (Minipress) 1 mg PO DAILY 01/30/23 08/25/24 bupropion HCl 150 mg 24 hr tablet, 150 mg PO DAILY 12/12/23 09/04/24 extended release ergocalciferol (vitamin D2) 1,250 1,250 mcg PO Q7D 12/12/23 08/25/24 mcg (50,000 unit) capsule (Vitamin D2) escitalopram oxalate 20 mg tablet 20 mg PO DAILY 12/12/23 09/04/24 semaglutide (weight loss) 1.7 1.7 mg subcut Q7D 12/12/23 09/04/24 mg/0.75 mL subcutaneous pen injector (Wegovy) Previous Rx's ?Medication ?Instructions ?Recorded albuterol sulfate 90 mcg/actuation 2 puff inhalation Q4-6H PRN 02/20/24 aerosol inhaler (Ventolin HFA) shortness of breath or wheezing #8.5 grams ketoconazole 2 % topical cream 1 applic topical QDAY 2 weeks #30 08/25/24 grams Allergies Allergy/AdvReac Type Severity Reaction Status Date / Time vancomycin Allergy Intermediate Hives Verified 09/04/24 22:11 Review of Systems Status of ROS: Reports: 6 or more systems reviewed and unremarkable except as noted in History and below [facility] Medical History Bilateral temporomandibular joint pain ?M26.623 - Arthralgia of bilateral temporomandibular joint (ICD-10) Dental caries ?K02.9 - Dental caries, unspecified (ICD-10) Methamphetamine abuse ?F15.10 - Other stimulant abuse, uncomplicated (ICD-10) PTSD (post-traumatic stress disorder) ?F43.10 - Post-traumatic stress disorder, unspecified (ICD-10) Opioid abuse ?F11.10 - Opioid abuse, uncomplicated (ICD-10) Hydradenitis ?L73.2 - Hidradenitis suppurativa (ICD-10) HSV infection ?B00.9 - Herpesviral infection, unspecified (ICD-10) Depression ?F32.A - Depression, unspecified (ICD-10) Chronic headaches ?R51.9 - Headache, unspecified (ICD-10) ?G89.29 - Other chronic pain (ICD-10) Anxiety ?F41.9 - Anxiety disorder, unspecified (ICD-10) Surgical History History of surgery ?Z98.890 - Other specified postprocedural states (ICD-10) Social History Smoking Status: Current every day smoker What tobacco products do you use: cigarettes Do you use any of these nicotine containing products: Vaping Products Second hand tobacco smoke exposure: No How often do you have a drink containing alcohol: never How often do you have six or more drinks on one occasion: Never AUDIT-C Alcohol total score: 0 Non-prescribed substance use: denies use service: No Exam Narrative: Exam Narrative: Pleasant. NAD. Breathing easily. Lungs are clear. Heart in regular rate and rhythm. Diffusely erythematous thighs and anterior legs. Edematous ankles left greater than right as well as knee. No significant calor though. Tender to light touch. No blisters. Particularly tender to flexion of the left ankle. Const: Vital Signs, click to edit/add: Vital Signs - 24 hr 09/04/24 22:05 09/05/24 00:32 09/05/24 00:40 Temperature 98.8 F 98.8 F 98.8 F Pulse Rate [Pulse Oximeter] 88 85 85 Respiratory Rate 16 16 16 Blood Pressure [Ri ght Upper Arm] 143/93 H 135/83 135/83 Pulse Oximetry 98 98 Oxygen Delivery Me thod Room Air Room Air Documenting provider has reviewed patient's vital signs: yes Course Vital Signs Vital signs: Initial Vital Signs Temperature 98.8 F 09/04/24 22:05 Temperature Source Temporal Artery Scan 09/04/24 22:05 Pulse Rate 88 09/04/24 22:05 Respiratory Rate 16 09/04/24 22:05 Blood Pressure 143/93 H 09/04/24 22:05 Blood Pressure Mean 109 H 09/04/24 22:05 Blood Pressure Position Sitting 09/04/24 22:05 Pulse Oximetry 98 09/04/24 22:05 Oxygen Delivery Method Room Air 09/04/24 22:05 Vital Signs Temperature 98.8 F 09/04/24 22:05 Pulse Rate 88 09/04/24 22:05 Respiratory Rate 16 09/04/24 22:05 Blood Pressure 143/93 H 09/04/24 22:05 Pulse Oximetry 98 09/04/24 22:05 Oxygen Delivery Method Room Air 09/04/24 22:05 Temperature 98.8 F 09/05/24 00:40 Pulse Rate 85 09/05/24 00:40 Respiratory Rate 16 09/05/24 00:40 Blood Pressure 135/83 09/05/24 00:40 Pulse Oximetry 98 09/05/24 00:32 Oxygen Delivery Method Room Air 09/05/24 00:32 Medications Administered Medications: Discontinued Medications Generic Name Dose Route Start Last Admin Trade Name Freq PRN Reason Stop Dose Admin Ceftriaxone Sodium 1 gm 09/05/24 00:24 09/05/24 00:30 Ceftriaxone 1 Gm Vial IM 09/05/24 00:25 1 gm ONCE ONE Administration Ceftriaxone Sodium 1 gm/ 100 mls @ 200 mls/hr 09/05/24 00:22 09/05/24 00:32 Sodium Chloride IVPB 09/05/24 00:23 Not Given ONCE ONE Lidocaine HCl 2.1 ml 09/05/24 00:24 09/05/24 00:30 Lidocaine 1% 5 Ml (Pf) 5 Ml Vial IM 2.1 ml DIRECTED PRN Administration Pain Medical Decision Making MDM Narrative Medical decision making narrative: Does not seem to have had the degree of a sunburn that can be explained by what were seen here. I am inclined to agree with Opal that this is likely cellulitis. Considering recent travel and other past medical I think would be prudent to ultrasound these extremities as well. Looking for DVT but also likely confirming subcutaneous edema consistent with cellulitis Discuss bilateral lower extremity ultrasound findings with rn teacher. Subcutaneous edema is noted. No DVT. On reexamination after returning from ultrasound, the does appear to be more calor and a subtle increase in erythema. INDICATION: Leg pain and swelling. TECHNIQUE: Ultrasound venous duplex bilateral lower extremity. Compression venous exam was performed using rabago-scale, color Doppler, and spectral Doppler analysis. COMPARISON: None. FINDINGS: Deep veins: Sonographic imaging demonstrates the bilateral common femoral, deep femoral, superficial femoral, popliteal, posterior tibial veins to be fully compressible with normal color Doppler blood flow. Superficial veins: Greater saphenous vein are fully compressible. Diffuse subcutaneous edema. No popliteal cyst. IMPRESSION: No DVT in the bilateral lower extremities. We did discuss treatment course including potential IV. The brightness of the rash here I think suggests a strep organism. It sounds as though Rocephin and cephalexin has been used in the past with success unless has waited too long and then has also required hospitalization. Did collect baseline labs. White count is reassuring the CRP is a little bit elevated. Placed Wilian wraps partly just to mobilize some fluid for improved comfort and given injection of Rocephin here in the emergency department. Will be continued on cephalexin. See patient discharge plan for further discussion Do stay well-hydrated. Can take up to 800 mg of ibuprofen or up to 1000 mg of acetaminophen per dose. Alternative to the ibuprofen might be up to 500 mg naproxen 2 times daily. Can wrap your ankles and lower legs for comfort. Or at least pushing some of the fluid out I think will decrease your discomfort. Please continue to keep your legs elevated at rest. You received a shot of Rocephin here in the emergency department. And as discussed, cephalexin from [facility]. Take this for 8 days. Would be reassessed at that time if possible. Be seen for fever, increasing shortness of breath, marked increase in pain/redness/swelling. May worsen just a little bit before it gets better. Medical Records Medical records reviewed: Yes I reviewed the patient's medical records Lab Data Labs: Lab Results 09/04/24 Range/Units 23:05 WBC 9.62 (4.50-11.00) K/uL RBC 3.89 L (4.00-5.20) m/uL Hgb 11.4 L (12.0-16.0) gm/dL Hct 35.5 (33.0-51.0) % MCV 91 (80-100) fL MCH 29 (26-34) pg MCHC 32 (32-36) gm/dL RDW Coeff of Shantelle 14.4 (11.5-15.5) % Plt Count 402 (140-440) K/uL Neut % (Auto) 54.9 (42.0-72.0) % Lymph % (Auto) 34.0 (20-44) % [place] % (Auto) 6.2 (0.0-11.0) % Eos % (Auto) 3.7 (0.0-7.0) % Baso % (Auto) 0.7 (0.0-3.0) % Neut # (Auto) 5.27 (1.7-7.0) K/uL Lymph # (Auto) 3.27 H (0.90-2.90) K/uL [place] # (Auto) 0.60 (0.00-0.90) K/UL Eos # (Auto) 0.36 (0.00-0.50) K/uL Baso # (Auto) 0.07 (0.00-0.30) K/uL Abs Immat Gran (auto) 0.05 (0.00-0.30) K/uL Imm/Tot Granulo (auto) 0.5 % C-Reactive Protein 1.8 H (0.5-1.0) mg/dL Discharge Plan Discharge Clinical Impression: Cellulitis Patient Disposition: Home, Self-Care Condition: Stable Additional Instructions: Do stay well-hydrated. Can take up to 800 mg of ibuprofen or up to 1000 mg of acetaminophen per dose. Alternative to the ibuprofen might be up to 500 mg naproxen 2 times daily. Can wrap your ankles and lower legs for comfort. Or at least pushing some of th e fluid out I think will decrease your discomfort. Please continue to keep your legs elevated at rest. You received a shot of Rocephin here in the emergency department. And as discussed, cephalexin from [facility]. Take this for 8 days. Would be reassessed at that time if possible. Be seen for fever, increasing shortness of breath, marked increase in pain/redness/swelling. May worsen just a little bit before it gets better. Prescriptions: No Action ketoconazole 2 % cream 1 applic topical QDAY 14 Days Qty: 30 0RF prazosin [Minipress] 1 mg capsule 1 mg PO DAILY ergocalciferol (vitamin D2) [Vitamin D2] 1,250 mcg (50,000 unit) capsule 1,250 mcg PO Q7D bupropion HCl 150 mg tablet extended release 24 hr 150 mg PO DAILY escitalopram oxalate 20 mg tablet 20 mg PO DAILY Wegovy 1.7 mg/0.75 mL pen injector 1.7 mg subcut Q7D albuterol sulfate [Ventolin HFA] 90 mcg/actuation HFA aerosol inhaler 2 puff inhalation Q4-6H PRN (Reason: shortness of breath or wheezing) Qty: 8.5 0RF Follow Up/Referrals: Provider,Not a Local [Non-Staff] - Stand Alone Forms: [facility] Info Instructions
--- NOTE | 2024-09-04 22:38 | CRLHL7_ITS ---
For Patients: As a result of the Century Cures Act, medical imaging exams and procedure reports are released immediately into your electronic medical record. You may view this report before your referring provider. If you have questions, please contact your health care provider. INDICATION: Leg pain and swelling. TECHNIQUE: Ultrasound venous duplex bilateral lower extremity. Compression venous exam was performed using rabago-scale, color Doppler, and spectral Doppler analysis. COMPARISON: None. FINDINGS: Deep veins: Sonographic imaging demonstrates the bilateral common femoral, deep femoral, superficial femoral, popliteal, posterior tibial veins to be fully compressible with normal color Doppler blood flow. Superficial veins: Greater saphenous vein are fully compressible. Diffuse subcutaneous edema. No popliteal cyst. IMPRESSION: No DVT in the bilateral lower extremities. Dictated by Nitesh Jc MD @ 09/04/2024 11:50:43 PM (Electronically Signed)
--- OUTSIDE RECORDS SUMMARY | 2024-09-04 22:52 | XMS_ITS | Continuity of Care Document ---
Author Organization [facility] Address [address], [address] [place] [address] Phone Care Team Providers Care Health Policy Manager Name Role Phone Susan FOREMAN, Devi Unavailable Unavailable Allergies, Adverse Reactions, Alerts Substance Reaction Status Criticality No Known Allergies Active No Inform ation Medications Medication Instructions Dosage Effective Dates (start - stop) Status Comments Lo Loestrin Fe 1 mg-10 mcg (24)/10 mcg (2) tablet take 1 tablet by oral route every day 1.00 tablet - Active Procedures Procedure Date PELVIC EXAMINATION OFFICE/OUTPATIENT VISIT, EST PELVIC EXAMINATION BRIEF EMOTIONAL/BEHAV ASSMT BRIEF EMOTIONAL/BEHAV ASSMT PREV VISIT, EST, AGE 18-39 PREV VISIT, EST, AGE 18-39 REMOVE DRUG IMPLANT DEVICE OFFICE/OUTPATIENT VISIT, EST PREV VISIT, EST, AGE 18-39 REMOVE/INSERT DRUG IMPLANT OFFICE/OUTPATIENT VISIT, EST PREV VISIT, NEW, AGE 18-39 Advance Directives Directive Yes / No Effective Date File Name No Information Encounters Encounter Description Practice Location Reason(s) For Visit Diagnoses Date Provider PELVIC EXAMINATION [facility], [address], [address], [place], [id number], [place] tel:[phone] [facility] dysmenorrhea (chief complaint) Pelvic pain Susan Quinonez. [address] , [address], [place], [id number], [place]. tel:[phone] PELVIC EXAMINATION [facility], [address], [address], [place], [id number], [place] tel:[phone] [facility] Annual Exam (chief complaint) Encounter for gynecological examination (general) (routine) without abnormal findingsEncounter for screening for depression Susan Quinonez. [address] , [address], [place], [id number], [place]. tel:[phone] PREV VISIT, EST, AGE 18-39 [facility], [address], [address], [place], [id number], [place] tel:[phone] [facility] Annual Exam (chief complaint) Encounter for gynecological examination (general) (routine) without abnormal findings Susan Quinonez. [address] , [address], [place], [id number], [place]. tel:[phone] [facility], [address], [address], [place], [id number], [place] tel:[phone] [address] [facility] Nexplanon Removal (chief complaint) Nexplanon removal Susan Quinonez. [address] , [address], [place], [id number], [place]. tel:[phone] OFFICE/OUTPATI ENT VISIT, EST [facility], [address], [address], [place], [id number], [place] tel:[phone] [address] [facility] Left ovarian pain, breast tenderness (chief complaint) Pelvic pain Susan Quinonez. [address] , [address], [place], [id number], [place]. tel:[phone] PREV VISIT, EST, AGE 18-39 [facility], [address], [address], [place], [id number], [place] tel:[phone] [address] [facility] Annual Exam (chief complaint) Encounter for gynecological examination (general) (routine) without abnormal findings Susan Quinonez. [address] [facility], [address], [place], [id number], [place]. tel:[phone] OFFICE/OUTPATI ENT VISIT, [facility], [address], [address], [place], [id number], [place] tel:[phone] [facility] Nexplanon removal and reinsertion (chief complaint) Encounter for removal and reinsertion of Nexplanon Susan Quinonez. [address] [facility], [address], [place], [id number], [place]. tel:[phone] PREV VISIT, BANNER, AGE 18-39 [facility], [address], [address], [place], [id number], [place] tel:[phone] [facility] Annual Exam (chief complaint) Encounter for gynecological examination (general) (routine) without abnormal findings Mondragon Evan. [address] , [address], [place], [id number], [place]. tel:[phone] Family History Family Member Type Diagnosis Age At Onset Sister Problem Fibroids Sister Problem Ovarian cyst Maternal grandmother Problem Breast cancer Payers Payer name Insurance type Covered republican ID Polo zuñiga(s) Nasrin FOREMAN BL [id number] Social History Type Description Quantity Date Captured Comments Alcohol Use Details Unknown Caffeine Use Details Unknown Tobacco Use Status No Information Smoking Status Never smoker Sex Female Sexual Orientation Straight or heterosexual May Gender Identity Female Vital Signs Date / Time: Height Weight BMI Pulse Rate Blood Pressure Temperature Respiratory Rate Body Surface Area Head Circumference Head Circ. Percentile Wt./[place]. Percentile BMI percentile Pulse Ox Inhaled Ox 9:13 AM 65.00 in 66.224 kg (146.00 lbs) 24.3 0 kg/m eter (2) 120/80 mm[Hg] Chief Complaint And Reason For Visit From encounter dated '08/29/2024 09:15'. dysmenorrhea (chief complaint). Description: Last menstrual period was on 08/20/2024. The age of menarche onset was 14. Associated symptoms include menstrual cramping and ovulatory pain.Additional information: 34yo G0 using withdrawal for prevention presents with c/o worsening dysmenorrhea and mittelschmerz. Not intolerable and not controlled with NSAIDs. Mental health previous impactedby Nexplanon. No known h/o endometriosis but sister has adenomysis, fibroids and PCOS. Plan Of Treatment Date Type Action Status Appointment Opal Lan BOOKED Appointment Opal Lan BOOKED Future Order: Radiology Order Ul trasound Pelvic TA And TV ([id number]), Sent on: Sent History Of Present Illness Encounter Date Complaint History Of Prese nt Illness dysmenorrhea Last menstrual p eriod was on 08/20/2024. The age of menarche onset was 14. Associated symptoms include menstrual cramping and ovulatory pain.Additional information: 34yo G0 using withdrawal for prevention presents with c/o worsening dysmenorrhea and mittelschmerz. Not intolerable and not controlled with NSAIDs. Mental health previous impacted by Nexplanon. No known h/o endometriosis but sister has adenomysis, fibroids and PCOS. Annual Exam The patient stat es using withdrawal for control. Last LMP was 11/29/2023. Negative for dysmenorrhea. Negative for: breast discharge, breast lump(s) and breast pain. Associated symptoms include anxiety. Pertinent negatives include depression and vaginal discharge. The patient does not use tobacco. The patient does drink alcohol. Additional information: no automation lead concernsperiods regularusing withdrawal for prevention and declines anything additionalwith intermediate frame tender boyfriend and anticipating she'll get engaged soonfinished soon recently and got promotion at work. Happier than she has been in awhile. Off meds for anxiety and doing really well. Annual Exam The patient stat es she uses withdrawal for control. Last LMP was 11/08/2022. Her menses is regular with normal flow. Negative for: breast discharge, breast lump(s) and breast pain. She does drink alcohol. Additional information: Periods regular since Nexplanon removalusing withdrawal for prevention and declines anything additional. Doesn't want hormones and concerned about IUDWith boyfriend for 3 yrs. Thinks she's getting engaged soon. Nexplanon Removal 32yo with Nexp lanon here for removal due to due effects. With partner x 2.5 yrs and plans to use condoms. Left ovarian pain, b reast tenderness Appt for multiple concerns including bloating, breast tenderness, LLQ discomfort. fatigue.States she was having sex 3 days ago and had sudden LLQ pain. Afterwards pain resolved. The following day pain recurred along with breast tenderness and bloating. Neg UPT yesterday at home and in officeNexplanon ame partner for >2yrs Annual Exam The patient stat es she uses Nexplanon for control. Last LMP was 09/21/2021. Negative for dysmenorrhea. Negative for: breast discharge, breast lump(s) and breast pain. Pertinent negatives include anxiety, depression and vaginal discharge. She does drink alcohol. Additional information: rare light period with Nexplanon and happy with [employer]actions [employer] as [facility] Nexplanon removal and reinsertio n 30yo with Nexplanon in place, expiring, desiring removal and replacement. Annual Exam The patient stat es she uses Nexplanon for control. Last LMP was 04/27/2020. Her menses is irregular with light flow with a frequency of variable. Negative for dysmenorrhea and menorrhagia. Details: First 2 years on Nexplanon did not bleed,. Negative for: breast discharge, breast lump(s) and breast pain. Positive for: breast self exam. There are no associated symptoms. The patient does not use tobacco. She does drink alcohol. Instructions Date Instruction Additional Infor armand No Information Assessments Type Assessment Date assessment Pelvic pain impression normal exampossible endometriosisGyn sono ordered to eval for structural causes of paincounseled on OCPs. Pt unsure about time to conception so IUD is not ideal choice if wants to conceive soon. If no improvement in pain with OCPs or intolerant of them and pain is persistent, consider laparoscopyAmenable to trial of OCPs. demian coker sent to pharmacyfollow up VV 3 mo Mental Status Date Cognitive Assessment Orientation - Alford ed to time, place, person, situation.
--- OUTSIDE RECORDS SUMMARY | 2024-09-04 22:53 | XMS_ITS | Encounter Summary ---
Author Organization [facility] Address [address] [place] [address] Care Team Providers Care Keyboard Instrument Repairer Name Role Phone No Ref-Primary, Physician Primary Care Provider Umu Calderon NP Primary Care Provider [phone] No Ref-Primary, Physician Primary Care Provider Starr Toussaint Primary Care Provider [phone] Naomi Hummel NP Unavailable [phone] Reason for Visit * Reason Onset Date Comments CD Outpatient 07/09/2013 loding screen Other Encounter Details Date Type Department Care Team ([facility] Contact Info) Description 07/09/2013 Telephone [facility] Health Intake [address] [place] [id number] [facility] Outpatient (loding screen); Social History Tobacco Use Types Packs/Day Years Used Date Smoking Tobacco: Never Assessed Comments Unknown Sex and Gender Information Value Date Recorded Sex Assigned at Not on file Legal Sex Female 3:06 PM PSYCHIATRIC TECHNICIAN ASSISTANT Gender Identity Not on file Sexual Orientation Not on file documented as of this encounter Miscellaneous Notes * Telephone Encounter - Hope Farrar - 08/07/2013 9:01 AM CST Message copied by HOPE FARRAR on SunAug 07, 2013 9:01 AM ------ Message from: СВЕТЛАНА SANCHEZ Created: SunAug 07, 2013 12:41 AM Regarding: phase 2 appts Opal needs to be set up for reoccurring appts. For phase 2 with Natalia Bess. Please begin on 08/06/13 to allow for billing. Thanks! Светлана HIATRIC TECHNICIAN ASSISTANT * Telephone Encounter - Bethanie Zavaleta - 07/16/2013 8:41 AM CST Message copied by BETHANIE ZAVALETA on SunJul 16, 2013 8:41 AM ------ Message from: TIRSO HERNANDEZ Created: SunJul 15, 2013 7:23 PM Regarding: LP admit today LP admit today direct, into track D, Dolores and Natalia HIATRIC TECHNICIAN ASSISTANT * Telephone Encounter - Bethanie Zavaleta - 07/14/2013 10:51 AM CST 07-14-13 Arranged L+ admit for 07-15-13 @ 1330 with Client. Called front desk associate and sent pool message. fb HIATRIC TECHNICIAN ASSISTANT * Telephone Encounter - Raven Chin - 07/11/2013 11:53 AM CST Placed on community wait list. Raven Chin HIATRIC TECHNICIAN ASSISTANT * Telephone Encounter - Raven Chin - 07/11/2013 11:51 AM CST Message copied by RAVEN CHIN on SunJul 11, 2013 11:51 AM ------ Message from: Rod MEYER Created: SunJul 11, 2013 11:31 AM Per L+RN Dalila Gomez and self, patient is appropriate for L+. Patient can be placed on community waitlist ONLY WHEN FUNDING FROM [facility] HAS BEEN CONFIRMED. Patient was informed that they need to have 21-30 day supply of medications, needs to be sober and not at risk for withdrawal and was given business office phone number regarding OOP costs. Rahul Wood HIATRIC TECHNICIAN ASSISTANT * Telephone Encounter - Al Cramer - 07/10/2013 7:43 AM CST Per josh Gonzalez can give Verbal auth Ref sent for L+ review. HIATRIC TECHNICIAN ASSISTANT * Telephone Encounter - Hunter Jauregui - 07/09/2013 3:18 PM CST Ref from fozia gonzalez/[facility] [phone]. r25 sent for screening of lodging plus. Ref will resolve funding through , Pending at this time. jpm HIATRIC TECHNICIAN ASSISTANT documented in this encounter Plan of Treatment Not on file documented as of this encounter Visit Diagnoses Not on filedocumented in this encounter Additional Health Concerns Infection Onset Date Last Indicated Resolved Time Rule Out COVID-19 04/04/2021 04/04/2021 04/04/2021 10:47 AM CDT Rule Out COVID-19 01/24/2022 01/24/2022 01/24/2022 6:16 AM CDT documented as of this encounter Care Teams Keyboard Instrument Repairer Relationship Specialty Start Date End Date No Ref-Primary, Physician PCP - General 07/28/13 04/04/17 Umu Calderon NP [facility] [address] [place] [address] PCP - General 04/05/17 01/29/18 No Ref-Primary, Physician PCP - General 05/22/18 04/03/21 Starr Toussaint PCP - General 04/04/21 Naomi Hummel NP [address] [place] [id number] Assigned PCP 07/19/23 documented as of this encounter
--- OUTSIDE RECORDS SUMMARY | 2024-09-04 22:53 | XMS_ITS | Clinical Summary ---
Author Organization [facility] Address [address] [place] [address] Care Team Providers Care Cdl Company Driver Name Role Phone Starr Toussaint APRN, SUBSTANCE ABUSE SERVICES DIRECTOR Primary Care Prov ider Allergies Active Allergy Reactions Criticality Noted Date Comments Codeine Vomiting,Nausea,Ligh ankit dedness,Rash Medium 06/21/2012 Other reaction(s): Rash Hydrocodone Lightheadedness Low 03/30/2018 Vancomycin Itching Low 01/29/2022 Benadryl helps Hydrocodone-Acetamino phen Nausea 04/23/2011 Medications etonogestreL (NEXPLANON) 68 mg Sdrm implant Inject 1 each (68 mg) under the skin. 9 Active acetaminophen (TYLENOL) 325 mg oral tablet Take 2 tablets (650 mg) by mouth every four (4) to six (6) hours as needed. Active Blood-Glucose Sensor (FREESTYLE DORIS 3 SENSOR) deviceIndicati ons:Morbid obesity (HCC),Elevated glucose level Use to monitor glucose per cooling system operator instructions. Apply new sensor every 14 days. 5 each 1 4 Active escitalopram oxalate (LEXAPRO) 20 mg oral tabletIndicati ons:ANAM (generalized anxiety disorder),MDD (major depressive disorder), recurrent episode, moderate (HCC) TAKE 1 TABLET BY MOUTH DAILY 30 tablet 4 Active buPROPion 75 mg oral tabletIndicati ons:MDD (major depressive disorder), recurrent episode, moderate (HCC),ANAM (generalized anxiety disorder) Take 1 tablet (75 mg) by mouth twice a day. 180 tablet 1 4 Active albuterol HFA (PROVENTIL;MONIE TOLIN HFA) 90 mcg/actuation Inhl inhalerIndicat ions:Wheezing, Viral illness Inhale 2 puffs every 4 (four) hours as needed. 18 g 3 4 Active WEGOVY 1.7 mg/0.75 mL SubQ pen injectorIndica tions:Type 2 diabetes mellitus with hyperglycemia, without long-term current use of insulin (HCC),Morbid obesity (HCC) INJECT 1.7MG SUBCUTANEOUSLY EVERY 7 DAYS 3 mL 4 Active semaglutide (WEGOVY) 0.5 mg/0.5 mL SubQ pen injectorIndica tions:Morbid obesity (HCC) Inject 0.5 mg under the skin every 7 (seven) days. 2 mL 4 Active semaglutide (WEGOVY) 1.7 mg/0.75 mL SubQ pen injectorIndica tions:Morbid obesity (HCC) Inject 1.7 mg under the skin every 7 (seven) days. 3 mL 1 4 Active VITAMIN D2 1,250 mcg (50,000 unit) oral capsuleIndicat ions:Vitamin D deficiency TAKE 1 CAPSULE BY MOUTH EVERY SEVEN DAYS 4 capsule 5 Active semaglutide (WEGOVY) 1 mg/0.5 mL SubQ pen injectorIndica tions:Morbid obesity (HCC) Inject 1 mg under the skin every 7 (seven) days. 0.5 mL 1 5 Active Active Problems Problem Noted Date Diagnosed Date Hepatitis B, chronic 05/16/2022 Chronic bilateral low back pain without sciatica 01/03/2022 ANAM (generalized anxiety disorder) 07/28/2019 Nexplanon insertion 07/30/2018 PTSD (post-traumatic stress disorder) 2017 MDD (major depressive disord er), recurrent episode, moderate 2017 Binge eating 2017 Hydradenitis 02/23/2015 Chemical dependency 07/16/2013 Asthma 02/12/2006 Overview (10/01/2020): Overview: LW Modifier: Likely EIA LW Onset: [id number] Problem list name updated by automated process. Provider to review LW Modifier: Likely EIA LW Onset: [id number] ; Asthma NOS Problem list name updated by automated process. Provider to review Resolved Problems Problem Noted Date Diagnosed Date Resolved Date Class 2 obesity due to exces s calories without serious comorbidity with body mass index (BMI) of 38.0 to 38.9 in adult 01/03/2022 Cellulitis of left lower extremity 11/13/2021 11/17/2022 Non-healing skin lesion 11/18/201906/26 Cellulitis 07/14/2019 11/17/2022 Borderline personality disorder 10/17/2018 11/17/2022 Recurrent major depressive d isorder, in partial remission 10/17/2018 06/27/2019 Severe episode of recurrent major depressive disorder, without psychotic features 06/05/2018 Bilateral temporomandibular joint pain 06/05/2018 05/04/2021 Anemia due to unknown mechanism 06/05/2018 11/17/2022 History of methadone use 2017 Therapeutic in first trimester 2017 10/20/2020 Overview (10/01/2020): On 06/15/17, [facility] Methamphetamine use disorder , moderate, dependence 2017 11/17/2022 Overview (11/21/2021): Last Assessment & Plan: Living at [employer] [facility]. Starting outpatient treatment through [facility] today. Recently relapsed on Meth yesterday, IV use, did not share needles. Declines STI testing. IVDU (intravenous drug user) 11/05/2015 05/07/2020 Incomplete 11/14/2014 06/27/19 20 Acute blood loss anemia 11/14/201406/26 History of methamphetamine abuse 02/16/2013 02/07/2020 delivery delivered 02/13/2013 06/27/2019 Vaginal delivery 11/03/2011 11/18/2019 Oligohydramnios, antepartum 11/01/2011 11/14/2014 Methadone maintenance treatm ent affecting in second trimester 10/11/2011 10/20/2020 Overview (10/01/2020): Methadone maintenance from [place] 150 mg. Please obtain ROLDAN upon admit and fax to [facility] to facilitate dose verification. Please contact Adelia Knowlesvivi [phone] at the time of hospital admission. If she is on a split dose, discharge to outpatient MAT can be complicated. Pt has take outs Sunday and Sunday PT instructed to take dose prior to csection. Methadone maintenance is confidential. (Pt's partner/fob is aware) Methadone maintenance from [place] 150 mg. Please obtain ROLDAN upon admit and fax to [facility] to facilitate dose verification. Please contact Adelia Knowlesvivi [phone] at the time of hospital admission. If she is on a split dose, discharge to outpatient MAT can be complicated. Pt has take outs Sunday and Sunday PT instructed to take dose prior to csection. Methadone maintenance is confidential. (Pt's partner/fob is aware) Supervision of normal first 09/27/2011 06/27/2019 Adjustment disorder with anxiety 12/31/2007 11/17/2022 Overview (10/01/2020): Overview: LW Modifier: and anxiety LW Modifier: and anxiety ; Adjustment Dis w Anxious Mood LW Modifier: and anxiety ; Adjustment Dis w Anxious Mood Overview: LW Modifier: and anxiety ; Adjustment Dis w Anxious Mood Immunizations Name Administration Dates Next Due DTP 02/03/1998, 7,10/18/1996,10/07,08/17/1995,07/20/1995 DTaP (Daptacel) 02/03/1998, 7,10/08/1995,08/17,07/20/1995 DTaP (Infanrix) 02/03/1998, 7,10/18/1996,10/07,08/17/1995,07/20/1995 HIB PRP-T 08/17/1995 HPV Quadrivalent 11/28/2013,07/22/2007 HPV9 10/15/2018 Hep A Adult 11/28/2013 Hep A Pediatric 07/22/2007 Hep B Adult 03/20/1997, 7,08/17/1995,07/20 Hep B Immune By Titer 10/21/1996 Hep B Pediatric 03/20/1997,10/21/1996 Influenza (Fluzone 2010-) 03/22/2011 Influenza (Fluzone MDV 2012- 14) 6-35 Mos 03/29/2012,05/22/2006 Influenza PF (2013-15) 03/29/2012,03/22/2011, Influenza recombinant (FluBl ok Quadrivalent PF) 05/30/2021,04/02/2019,06/06/2018,04/09,04/16/2013,03/29/2012,03/22/2011 ,05/22/2006 Influenza split virus (Fluzo ne Quadrivalent PF) 05/30/2021,04/02/2019,06/06/2018,04/09,04/16/2013,03/29/2012,03/22/2011 ,05/22/2006 Influenza split virus quadrivalent 07/05,04/02/2019,06/06/2018,04/09,03/22/2011 MMR 02/03/1998,07/20/1995 Meningococcal MCV4O 07/22/2007 Meningococcal MCV4P 07/22/2007 Meningococcal MPSV4 07/22/2007 Pfizer 12+ Yrs Monovalent CO VID Vaccine (purple cap) 05/30/2021 Pneumococcal PPSV23 11/03/2011 Polio IPV 02/03/1998, 7,08/17/1995,07/20 Polio OPV 02/03/1998, 7,08/17/1995,07/20 SPIKEVAX (Moderna) 12+ Yrs M onovalent COVID Vaccine (credit associate) 11/12/2020,10/15/2020 Tdap 03/28/2016,11/26/2012,03/02/2005 Varicella 07/22/2007,10/08/1995 Family History Medical History Relation Comments Melanoma Father Drug Abuse Mother Breast Cancer Other Diabetes Other Heart Disease Paternal Grandmother Drug Abuse Sister 1 Relation Status Comments Brother Alive Father Alive Mother Alive Other Paternal Grandmother Sister 1 Alive Sister 2 Alive Social History Tobacco Use Types Packs/Day Years Used Date Smoking Tobacco: Every Day Cigarettes 0.5 15 Started: 05/03/2005; Last attempted to quit: 05/03/2020 Smokeless Tobacco: Never Tobacco Cessation:Ready to Q uit: Not Asked; Counseling Given: Not Answered Alcohol Use Standard Drinks/Week Comments Not Currently 0 (1 standard drink = 0.6 oz pur e alcohol) AUDIT-C Answer Date Recorded Frequency of Alcohol Consumption Not on file 05/23/2024 Q2: How many drinks containi ng alcohol do you have on a typical day when you are drinking? Patient does not drink Frequency of Binge Drinking Not on file 04/26 PHQ-2 Answer Date Recorded PHQ2 Total 0 05/21/2024 [facility] - Occupational Stress Questionnaire Answer Date Recorded Do you feel stress - tense, restless, nervous, or anxious, or unable to sleep at night because your mind is troubled all the time - these days? Very much 07/25/2020 Exercise Vital Sign Answer Date Recorde d On average, how many days pe r week do you engage in moderate to strenuous exercise (like a brisk walk)? 6 days 07/25/2020 On average, how many minutes do you engage in exercise at this level? 20 min 07/25/2020 Hunger Vital Sign Answer Date Recorded Within the past 12 months, y ou worried that your food would run out before you got the money to buy more. Sometimes true Within the past 12 months, t he food you bought just didn't last and you didn't have money to get more. Sometimes true PRAPARE - Transportation Answer Date Re corded In the past 12 months, has l ack of transportation kept you from medical appointments or from getting medications? No 06/27 In the past 12 months, has l ack of transportation kept you from meetings, work, or from getting things needed for daily living? 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 Not on file Not on file Not on file Last Filed Vital Signs Vital Sign Reading Time Taken Comments Blood Pressure 120/80 05/21/2024 10:48 AM GENERAL MAINTENANCE MECHANIC Pulse 83 05/21/2024 10:48 AM GENERAL MAINTENANCE MECHANIC Temperature 36.6 C (97.9 F) 05/21/2024 10:48 AM GENERAL MAINTENANCE MECHANIC Respiratory Rate 18 11/13/2021 2:52 PM CDT Oxygen Saturation 98% 05/21/2024 10: 48 AM GENERAL MAINTENANCE MECHANIC Inhaled Oxygen Concentration - - Weight 125.1 kg (275 lb 12.8 oz) 2023 10:48 AM GENERAL MAINTENANCE MECHANIC Height 180.3 cm (5' 11) 05/21/2024 10: 48 AM GENERAL MAINTENANCE MECHANIC Body Mass Index 38.47 05/21/2024 10:48 AM GENERAL MAINTENANCE MECHANIC Plan of Treatment Health Maintenance Due Date Last Done Comments Eye Exam 1992 Pneumococcal Vaccine (2 of 2 - PCV) 11/02/2012 11/03/2011 COVID-19 Vaccine (4 - 2023-2 5 season) 2024 05/30/2021, 11/12/2020, 10/15/2020 Influenza Vaccine (#1) 2024 , 05/30/2021, 07/05/2020, Additional history exists HgbA1C 11/18/2024 05/21/2024, 08/23, 05/30/2022, Additional history exists Anxiety Follow-Up (ANAM-7) 05/21/2025 05/21/2024 Creatinine 05/21/2025 05/21/2024, 0308/2022, 05/30/2022, Additional history exists Depression Follow-Up (PHQ-9) 05/21/2025 05/21/2024 Lipid Screening 05/21/2025 05/21/2024, 12/11/2021, 02/07/2021, Additional history exists Microalbumin Q12 Month 05/21/2025 05/21/2024 Pap Smear 05/30/2025 05/30/2022, 08/06/2018 Adult Tetanus Booster 03/28/2026 03/28/2016 , 11/26/2012, 03/02/2005 RSV Vaccines (1 - 1-dose 75+ series) 2067 Hepatitis C Screening Completed 05/30/2022 , 07/20/2020, 07/11/2018 Procedures Procedure Name Priority Date/Time Associated Diagnosis Comments MICROALBUMIN URINE (BFM / STH ONLY) Routine 05/21/2024 11:31 AM GENERAL MAINTENANCE MECHANIC Type 2 diabetes mellitus with hyperglycemia, without long-term current use of insulin (HCC) BASIC METAB PROFILE Routine 05/21/2024 1 1:31 AM GENERAL MAINTENANCE MECHANIC Type 2 diabetes mellitus with hyperglycemia, without long-term current use of insulin (HCC) Morbid obesity (HCC) LIPID PROFILE CASCADE Routine 05/21/2024 11:31 AM GENERAL MAINTENANCE MECHANIC Type 2 diabetes mellitus with hyperglycemia, without long-term current use of insulin (HCC) Morbid obesity (HCC) Screening for cholesterol level HGB A1C (GLYCO HGB) (BFM / STH USE ONLY) Routine 05/21/2024 11:31 AM GENERAL MAINTENANCE MECHANIC Type 2 diabetes mellitus with hyperglycemia, without long-term current use of insulin (HCC) Morbid obesity (HCC) METALLURGIST PROCESS PAP W/REFLEX APTIMA HPV IF ASCU ([facility]) Routine 05/30/2022 2:16 PM GENERAL MAINTENANCE MECHANIC Screening for cervical cancer ACUTE HEPATITIS PANEL ([facility]) Routine 05/30/2022 12:47 PM GENERAL MAINTENANCE MECHANIC Screening for condition Abnormal laboratory test result from Last 3 Months or Most Recently Relevant to Health Maintenance Results * MICROALBUMIN URINE (BFM / STH ONLY) (05/21/2024 11:31 AM GENERAL MAINTENANCE MECHANIC) MICROALBULIN, URINE OP 7.8 0.0 - 30.0 mg/g [facility] Comment:The microalbumin res ult reported is a urine albumin-creatinine ratio. Urine URINE SPECIMEN OBTAINED BY CLEAN CATCH PROCEDURE / Unknown 05/21/2024 11:31 AM GENERAL MAINTENANCE MECHANIC Narrative [facility] - 05/21/2024 4:16 PM GENERAL MAINTENANCE MECHANIC Urine Albumin is <0.6 mg/dL. The Albumin/Creatinine ratio is invalid us Starr Toussaint APRN, DAMASO CHEMISTRY ORDERABL E Final Result Performing Organization Address [facility]/ZIP Co de Phone Number [address] [address], [place] [phone] * (ABNORMAL) LIPID PROFILE CASCADE (05/21/2024 11:31 AM GENERAL MAINTENANCE MECHANIC) CHOLESTEROL 187 0 - 200 mg/dL [facility] NON-HDL CHOLESTEROL 140.7(H) 0.0 - 130.0 mg/dL [facility] TRIGLYCERIDES 178.0 0.0 - 200.0 mg/dL [facility] HDL 46.3 40.0 - 60.0 mg/dL [facility] LDL 105.0 0.0 - 130.0 [facility] CHOL HDL RATIO 4.0(H) 0.0 - 4.0 [facility] Blood VENOUS BLOOD SPECIMEN / Unknown 05/21/2024 11:31 AM GENERAL MAINTENANCE MECHANIC us Starr Toussaint APRN, DAMASO CHEMISTRY ORDERABL E Final Result Performing Organization Address City/[facility]/ZIP Co de Phone Number [address] [address], [place] [phone] * HGB A1C (GLYCO HGB) (BFM / STH USE ONLY) (05/21/2024 11:31 AM GENERAL MAINTENANCE MECHANIC) HGBA1C OP 5.0 4.0 - 5.6 % [facility] Blood VENOUS BLOOD SPECIMEN / Unknown 05/21/2024 11:31 AM GENERAL MAINTENANCE MECHANIC us Starr Toussaint APRN, DAMASO CHEMISTRY ORDERABL E Final Result Performing Organization Address [facility]/ZIP Co de Phone Number [address] [address], [place] [phone] * (ABNORMAL) BASIC METAB PROFILE (05/21/2024 11:31 AM GENERAL MAINTENANCE MECHANIC) GLUCOSE CASUAL OP 87 74 - 106 mg/dL [facility] BUN 8.9 7.0 - 20.0 mg/dL [facility] CREATININE 0.69(L) 0.70 - 1.50 mg/dL [facility] CALCIUM 9.6 8.5 - 10.4 mg/dL [facility] SODIUM 138.9 137.0 - 145.0 mmol/L [facility] POTASSIUM 4.3 3.5 - 5.1 mmol/L [facility] CHLORIDE 110.7(H) 98.0 - 107.0 mmol/L [facility] CO2 20.9(L) 22.0 - 30.0 mmol/L [facility] EST GFR (MDRD) 99.2 [facility] Comment: Calculated GFR for the patient 18 and older:Normal Kidney Function: >/-90Mild Decreased GFR: 60 - 89Moderated Decreased GFR: 30 - 59Severe Decreased GFR: 15 - 29Kidney Failure: <15 (or dialysis)If the patient is , the calculated GFR should be multiplied by 1.21. Units of measure for GFR = mL/min/1.05f0Cln GFR value is not valid for patients under 18 years of age. Please disregard. Blood VENOUS BLOOD SPECIMEN / Unknown 05/21/2024 11:31 AM GENERAL MAINTENANCE MECHANIC Starr Toussaint APRN, SUBSTANCE ABUSE SERVICES DIRECTOR CHEMISTRY ORDERABL E Final Result [facility] [address] [address], * METALLURGIST PROCESS PAP W/REFLEX APTIMA HPV IF ASCU ([facility]) (05/30/2022 2:16 PM GENERAL MAINTENANCE MECHANIC) Diagnosis: ([facility]) Comment [facility] 1 Comment: NEGATIVE FOR INTRAEPITHELIAL LESION OR MALIGNANCY. Specimen Adequacy: ([facility]) Comment [facility] 1 Comment: Satisfactory for evaluation. Endocervical and/or squamous metaplastic cells (endocervical component) are present. Clinician Provided ICD10: ([facility]) Comment [facility] 2 Comment: Z12.4 Performed by: Comment [facility] 1 Comment: Herber Garzon Sr, Chalk Molding Machine Operator (ASCP) Cyto Comments ([facility]) . [facility] 1 Note: ([facility]) Comment [facility] 2 Comment: The Pap smear is a screening test designed to aid in the detection of premalignant and malignant conditions of the uterine cervix. It is not a diagnostic procedure and should not be used as the sole means of detecting cervical cancer. Both false-positive and false-negative reports do occur. Test Methodology ([facility]) Comment [facility] 2 Comment: This liquid based ThinPrep(R) pap test was screened with the use of an image guided system. Pap Reflex Comment ([facility]) Comment [facility] 1 Comment: The HPV DNA reflex criteria were not met with this specimen result therefore, no HPV testing was performed. Pap CERVIX UTERI STRUCTURE / Unknown 05/30/2022 2:16 PM GENERAL MAINTENANCE MECHANIC 05/30/2022 11:00 PM GENERAL MAINTENANCE MECHANIC Comment:Pap Narrative [facility] 1 - 06/01/2022 3:09 PM GENERAL MAINTENANCE MECHANIC Performed at: 01 - [facility] [place] [address] [id number] Style Advisor: Lizbeth Chambers MD, Phone: [phone] Performed at: 02 - Lab[address] [id number] Style Advisor: Satnam Garcia MD, Phone: [phone] Specimen Comment: Source.............Cervix Specimen Comment: LMP / Prev Treat...None Specimen Comment: No. of containers..01 ThinPrep Vial us Starr Toussaint CASE SEALER, SUBSTANCE ABUSE SERVICES DIRECTOR [facility] ORDERABLES Final Result [facility] 1 [facility] 2 * ACUTE HEPATITIS PANEL ([facility]) (05/30/2022 12:47 PM GENERAL MAINTENANCE MECHANIC) Hepatitis A IgM Antibody ([facility]) Negative Negative [facility] 1 Hepatitis B Surface Antigen Screen ([facility]) Negative Negative [facility] 1 Hepatitis B Core IgM Antibody ([facility]) Negative Negative [facility] 1 Hepatitis C Virus Antibody ([facility]) <0.1 0.0 - 0.9 s/co ratio [facility] 1 Blood BLOOD SPECIMEN / Unknown 05/30/2022 12:47 PM GENERAL MAINTENANCE MECHANIC 05/29/2022 11:00 PM GENERAL MAINTENANCE MECHANIC Comment:Blood Narrative [facility] 1 - 05/31/2022 10:06 PM GENERAL MAINTENANCE MECHANIC Performed at: 01 - [facility] [address] [id number] Style Advisor: Elvis Barrios MD, Phone: [phone] us Starr Toussaint CASE SEALER, SUBSTANCE ABUSE SERVICES DIRECTOR [facility] ORDERABLES Final Result [facility] 1 from Last 3 Months or Most Recently Relevant to Health Maintenance Additional Health Concerns Infection Onset Date Last Indicated C. difficile Rule-Out 11/13/2021 11/13/[address] [place] [id number] [facility] PMAP/MNCARE PMAP/MNCARE Advance Directives For more information, please contact: [phone] * Full Code (Latest Code Status on File) Date Activated Date Inactivated Comments 11/13/2021 6:09 AM 11/13/2021 10:04 PM Question Answer Comments How was code status determined? Patient Care Teams Cdl Company Driver Relationship Specialty Start Date End Date Starr Toussaint, CASE SEALER, SUBSTANCE ABUSE SERVICES DIRECTOR [address] [facility]. [address] [address] PCP - General Nurse Practitioner 06/28/23
--- OUTSIDE RECORDS SUMMARY | 2024-09-04 22:53 | XMS_ITS | Encounter Summary ---
Author Organization [facility] Address [address] [place] [address] Care Team Providers Care Senior Benefits Specialist Name Role Phone No Ref-Primary, Physician Primary Care Provider Umu Calderon NP Primary Care Provider [phone] No Ref-Primary, Physician Primary Care Provider Starr Toussaint Primary Care Provider + [phone] Naomi Hummel WRAPPER DIPPER Unavailable [phone] Reason for Visit * Reason Comments Other Encounter Details Date Type Department Care Team ([facility] Contact Info) Description 09/11/2013 Telephone [facility] Behavioral Health Intake [address] [place] [phone] Generic, Behavioral Intake, Social History Tobacco Use Types Packs/Day Years Used Date Smoking Tobacco: Every Day Cigarettes Smokeless Tobacco: Never Alcohol Use Standard Drinks/Week Comments No 0 (1 standard drink = 0.6 oz pur e alcohol) Comments No Sex and Gender Information Value Date Recorded Sex Assigned at Not on file Legal Sex Female 3:06 PM PORTFOLIO ARCHITECT Gender Identity Not on file Sexual Orientation Not on file documented as of this encounter Miscellaneous Notes * Telephone Encounter - Tavares Fleming - 09/11/2013 9:22 AM CDT Message copied by TAVARES FLEMING on SunSep 11, 2013 9:22 AM ------ Message from: AFSHIN WRIGHT Created: SunSep 10, 2013 3:41 PM Regarding: Phase II Please schedule pt for 7 Phase II sessions with [facility] Wall on Mondays from 7:30-9pm, group [id number]. Pt to begin on 09/15/13. Thanks. documented in this encounter Plan of Treatment Not on file documented as of this encounter Visit Diagnoses Not on filedocumented in this encounter Additional Health Concerns Infection Onset Date Last Indicated Resolved Time Rule Out COVID-19 04/04/2021 04/04/2021 04/04/2021 10:47 AM CDT Rule Out COVID-19 01/24/2022 01/24/2022 01/24/2022 6:16 AM CDT documented as of this encounter Care Teams Senior Benefits Specialist Relationship Specialty Start Date End Date No Ref-Primary, Physician PCP - General 07/28/13 04/04/17 Umu Calderon NP [facility] [address] [address] PCP - General 04/05/17 01/29/18 No Ref-Primary, Physician PCP - General 05/22/18 04/03/21 Starr Toussaint PCP - General 04/04/21 Naomi Hummel NP [address] [place] [phone] Assigned PCP 07/19/23 documented as of this encounter
--- OUTSIDE RECORDS SUMMARY | 2024-09-04 22:53 | XMS_ITS | Encounter Summary ---
Author Organization [facility] Address [address] [place] [address] Care Team Providers Care Business Unit Leader Name Role Phone Starr ToussaintAnitha Primary Care Provider + [phone] Naomi Hummel SILK SCREEN REPAIRER Unavailable [phone] Encounter Details Date Type Department Care Team (Late st Contact Info) Description 04/04/2021 Documentation Only INTERFACED REPORT Unknown, Provider Social History Tobacco Use Types Packs/Day Years Used Date Smoking Tobacco: Former Cigarettes Smokeless Tobacco: Never Comments:Started smoking at age 19 Alcohol Use Standard Drinks/Week Comments No 0 (1 standard drink = 0.6 oz pur e alcohol) PHQ-2 Answer Date Recorded PHQ-2 Score 6 07/03/2018 Comments No Sex and Gender Information Value Date Recorded Sex Assigned at Not on file Legal Sex Female 3:06 PM SUPERVISOR TWISTING DEPARTMENT Gender Identity Not on file Sexual Orientation Not on file Occupation Industry Job Start Date Job End Date Not on file Not on file Not on file Not on file COVID-19 Exposure Response Date Recorded In the last month, have you been in contact with someone who was confirmed or suspected to have Coronavirus / COVID-19? No / Unsure 04/04/2021 7:42 AM CDT documented as of this encounter Plan of Treatment Not on file documented as of this encounter Visit Diagnoses Not on filedocumented in this encounter Additional Health Concerns Infection Onset Date Last Indicated Resolved Time Rule Out COVID-19 04/04/2021 04/04/2021 04/04/2021 10:47 AM CDT Rule Out COVID-19 01/24/2022 01/24/2022 01/24/2022 6:16 AM CDT Assessment Noted Time PHQ-9 Depression Total Score: 22 017 2:50 PM SUPERVISOR TWISTING DEPARTMENT documented as of this encounter Care Teams Business Unit Leader Relationship Specialty Start Date End Date Starr Toussaint PCP - General 04/04/21 Naomi Hummel, LINDSEY [address] [place] [id number] Assigned PCP 07/19/23 documented as of this encounter
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
--- OUTSIDE RECORDS SUMMARY | 2024-09-04 22:53 | XMS_ITS | Referral Summary ---
Author Organization [facility] Address [address] [place] [address] Care Team Providers Care [employer] Assistant Manager Name Role Phone Starr Toussaint APRN, WIRE BRUSH MAKER Primary Care Prov ider Allergies Active Allergy [...] glucose level Use to monitor glucose per waiter/waitress third class instructions. Apply new sensor every 14 days. [...] Overview: LW Modifier: Likely EIA LW Onset: [id number] Problem list name updated by automated process. Provider to review LW Modifier: Likely EIA LW Onset: [id number] ; Asthma NOS Problem list name updated [...] Overview (10/01/2020): On 06/15/17, [facility] Methamphetamine use disorder , moderate, dependence 2017 11/17/2022 Overview (11/21/2021): Last Assessment & Plan: Living at [facility]. Starting outpatient treatment through [facility] today. Recently relapsed on Meth yesterday, IV [...] obtain ROLDAN upon admit and fax to [facility] to facilitate dose verification. Please contact Adelia Knowlesvivi [phone] at the time of hospital admission. If she is on a split dose, discharge to outpatient MAT can be complicated. Pt has take outs Sunday and Sunday PT instructed to take dose prior to csection. Methadone maintenance is confidential. (Pt's partner/fob is aware) Methadone maintenance from [facility] 150 mg. Please obtain ROLDAN upon admit and fax to [facility] to facilitate dose verification. Please contact Adelia Knowlesvivi [phone] at the time of hospital admission. 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 Not on file Not on file Last Filed Vital Signs Vital Sign Reading Time Taken Comments Blood Pressure 120/80 05/21/2024 10:48 AM FINANCIAL SERVICES REPRESENTATIVE Pulse 83 05/21/2024 10:48 AM FINANCIAL SERVICES REPRESENTATIVE Temperature 36.6 C (97.9 F) 05/21/2024 10:48 AM FINANCIAL SERVICES REPRESENTATIVE Respiratory Rate 18 11/13/2021 2:52 PM CDT Oxygen Saturation 98% 05/21/2024 10: 48 AM FINANCIAL SERVICES REPRESENTATIVE Inhaled Oxygen Concentration - - Weight 125.1 kg (275 lb 12.8 oz) 2023 10:48 AM FINANCIAL SERVICES REPRESENTATIVE Height 180.3 cm (5' 11) 05/21/2024 10: 48 AM FINANCIAL SERVICES REPRESENTATIVE Body Mass Index 38.47 05/21/2024 10:48 AM FINANCIAL SERVICES REPRESENTATIVE Plan of Treatment Not on file Procedures Procedure Name Priority Date/Time Associated Diagnosis Comments MICROALBUMIN URINE (BFM / STH ONLY) Routine 05/21/2024 11:31 AM FINANCIAL SERVICES REPRESENTATIVE Type 2 diabetes mellitus with hyperglycemia, without long-term current use of insulin (HCC) BASIC METAB PROFILE Routine 05/21/2024 1 1:31 AM FINANCIAL SERVICES REPRESENTATIVE Type 2 diabetes mellitus with hyperglycemia, without long-term current use of insulin (HCC) Morbid obesity (HCC) LIPID PROFILE CASCADE Routine 05/21/2024 11:31 AM FINANCIAL SERVICES REPRESENTATIVE Type 2 diabetes mellitus with hyperglycemia, without long-term current use of insulin (HCC) Morbid obesity (HCC) Screening for cholesterol level HGB A1C (GLYCO HGB) (BFM / STH USE ONLY) Routine 05/21/2024 11:31 AM FINANCIAL SERVICES REPRESENTATIVE Type 2 diabetes mellitus with hyperglycemia, without long-term current use of insulin (HCC) Morbid obesity (HCC) CHILD WELFARE SPECIALIST PAP W/REFLEX APTIMA HPV IF ASCU ([facility]) Routine 05/30/2022 2:16 PM FINANCIAL SERVICES REPRESENTATIVE Screening for cervical cancer ACUTE HEPATITIS PANEL ([facility]) Routine 05/30/2022 12:47 PM FINANCIAL SERVICES REPRESENTATIVE Screening for condition Abnormal laboratory test result from Last 3 Months or Most Recently Relevant to Health Maintenance Results * MICROALBUMIN URINE (BFM / STH ONLY) (05/21/2024 11:31 AM FINANCIAL SERVICES REPRESENTATIVE) MICROALBULIN, URINE OP 7.8 0.0 - 30.0 mg/g [facility] Comment:The microalbumin res ult reported is a urine albumin-creatinine ratio. Urine URINE SPECIMEN OBTAINED BY CLEAN CATCH PROCEDURE / Unknown 05/21/2024 11:31 AM FINANCIAL SERVICES REPRESENTATIVE Narrative [facility] - 05/21/2024 4:16 PM FINANCIAL SERVICES REPRESENTATIVE Urine Albumin is <0.6 mg/dL. The Albumin/Creatinine ratio is invalid Starr Toussaint APRN, DAMASO CHEMISTRY ORDERABL E Final Result Performing Organization Address [facility]/ZIP Co de Phone Number [address] [address], [place] [phone] * (ABNORMAL) LIPID PROFILE CASCADE (05/21/2024 11:31 AM FINANCIAL SERVICES REPRESENTATIVE) CHOLESTEROL 187 0 - 200 mg/dL [facility] NON-HDL CHOLESTEROL 140.7(H) 0.0 - 130.0 mg/dL [facility] TRIGLYCERIDES 178.0 0.0 - 200.0 mg/dL [facility] HDL 46.3 40.0 - 60.0 mg/dL [facility] LDL 105.0 0.0 - 130.0 [facility] CHOL HDL RATIO 4.0(H) 0.0 - 4.0 [facility] Blood VENOUS BLOOD SPECIMEN / Unknown 05/21/2024 11:31 AM FINANCIAL SERVICES REPRESENTATIVE Starr Toussaint APRN, DAMASO CHEMISTRY ORDERABL E Final Result [address] [address], [place] [phone] * HGB A1C (GLYCO HGB) (BFM / STH USE ONLY) (05/21/2024 11:31 AM FINANCIAL SERVICES REPRESENTATIVE) HGBA1C OP 5.0 4.0 - 5.6 % [facility] Blood VENOUS BLOOD SPECIMEN / Unknown 05/21/2024 11:31 AM FINANCIAL SERVICES REPRESENTATIVE Starr Toussaint APRN, CNP CHEMISTRY ORDERABL E Final Result Performing Organization Address City/[facility]/ZIP Co de Phone Number [address] [address], [place] [phone] * (ABNORMAL) BASIC METAB PROFILE (05/21/2024 11:31 AM FINANCIAL SERVICES REPRESENTATIVE) GLUCOSE CASUAL OP 87 74 - 106 mg/dL [facility] BUN 8.9 7.0 - 20.0 mg/dL [facility] CREATININE 0.69(L) 0.70 - 1.50 mg/dL [facility] CALCIUM 9.6 8.5 - 10.4 mg/dL [facility] SODIUM 138.9 137.0 - 145.0 mmol/L [facility] POTASSIUM 4.3 3.5 - 5.1 mmol/L [facility] CHLORIDE 110.7(H) 98.0 - 107.0 mmol/L [facility] CO2 20.9(L) 22.0 - 30.0 mmol/L [facility] EST GFR (MDRD) 99.2 [facility] Comment: Calculated GFR for the patient 18 and older:Normal Kidney Function: >/-90Mild Decreased GFR: 60 - 89Moderated Decreased GFR: 30 - 59Severe Decreased GFR: 15 - 29Kidney Failure: <15 (or dialysis)If the patient is , the calculated GFR should be multiplied by 1.21. Units of measure for GFR = mL/min/1.62z3Khw GFR value is not valid for patients under 18 years of age. Please disregard. Blood VENOUS BLOOD SPECIMEN / Unknown 05/21/2024 11:31 AM FINANCIAL SERVICES REPRESENTATIVE us Starr Toussaint APRN, CNP CHEMISTRY ORDERABL E Final Result [address] [address], [place] [phone] * CHILD WELFARE SPECIALIST PAP W/REFLEX APTIMA HPV IF ASCU ([facility]) (05/30/2022 2:16 PM FINANCIAL SERVICES REPRESENTATIVE) Diagnosis: ([facility]) Comment [facility] 1 Comment: NEGATIVE FOR INTRAEPITHELIAL LESION OR MALIGNANCY. Specimen Adequacy: ([facility]) Comment [facility] 1 Comment: Satisfactory for evaluation. Endocervical and/or squamous metaplastic cells (endocervical component) are present. Clinician Provided ICD10: ([facility]) Comment [facility] 2 Comment: Z12.4 Performed by: Comment [facility] 1 Comment: Herber Garzon Sr, Technical Support Assistant (ASCP) Cyto Comments ([facility]) . [facility] 1 [...] UTERI STRUCTURE / Unknown 05/30/2022 2:16 PM FINANCIAL SERVICES REPRESENTATIVE 05/30/2022 11:00 PM FINANCIAL SERVICES REPRESENTATIVE Comment:Pap Narrative [facility] 1 - 06/01/2022 3:09 PM FINANCIAL SERVICES REPRESENTATIVE Performed at: - [facility] [address] [facility] [address], [place], [place] [id number] Extension Service Supervisor: Lizbeth Chambers MD, Phone: [phone] [facility]formed at: - [facility] [address] [id number] Extension Service Supervisor: Satnam Garcia MD, Phone: [phone] Specimen Comment: Source.............Cervix Specimen Comment: LMP / Prev Treat...None Specimen Comment: No. of containers..01 ThinPrep Vial us Starr Toussaint SEWING MACHINE OPERATOR FLOORPERSON, WIRE BRUSH MAKER [facility] ORDERABLES Final Result [facility] 1 [facility] 2 * ACUTE HEPATITIS PANEL ([facility]) (05/30/2022 12:47 PM FINANCIAL SERVICES REPRESENTATIVE) Hepatitis A IgM Antibody ([facility]) Negative Negative [facility] 1 Hepatitis B Surface Antigen Screen ([facility]) Negative Negative [facility] 1 Hepatitis B Core IgM Antibody ([facility]) Negative Negative [facility] 1 Hepatitis C Virus Antibody ([facility]) <0.1 0.0 - 0.9 s/co ratio [facility] 1 Blood BLOOD SPECIMEN / Unknown 05/30/2022 12:47 PM FINANCIAL SERVICES REPRESENTATIVE 05/29/2022 11:00 PM FINANCIAL SERVICES REPRESENTATIVE Comment:Blood Narrative [facility] 1 - 05/31/2022 10:06 PM FINANCIAL SERVICES REPRESENTATIVE Performed at: [facility] [address] [id number] Extension Service Supervisor: Elvis Barrios MD, Phone: [phone] Starr Toussaint APRN, WIRE BRUSH MAKER [facility] ORDERABLES Final Result [facility] 1 from Last 3 Months or Most Recently Relevant to Health Maintenance Additional Health Concerns Infection Onset Date Last Indicated C. difficile Rule-Out 11/13/2021 11/13/2021 Insurance [facility] PMAP/MNCARE ARE PMAP/MNCARE Advance Directives For more information, please contact: [phone] * Full Code (Latest Code Status on File) Date Activated Date Inactivated Comments 11/13/2021 6:09 AM 11/13/2021 10:04 PM Question Answer Comments How was code status determined? Patient Care Teams [employer] Assistant Manager Relationship Specialty Start Date End Date Starr Toussaint, SEWING MACHINE OPERATOR FLOORPERSON, WIRE BRUSH MAKER [address] [place] [address]. [address] [id number] PCP - General Nurse Practitioner 06/28/23
--- OUTSIDE RECORDS SUMMARY | 2024-09-04 22:53 | XMS_ITS | Clinical Summary ---
Author Organization [facility] Address [address] [place] [address] Care Team Providers Care Liquid Sugar Fortifier Name Role Phone Starr ToussaintAnitha Primary Care Provider + [phone] Naomi Hummel STORE GIFT WRAP ASSOCIATE Unavailable [phone] Allergies Active Allergy Reactions Criticality Noted Date Comments Codeine GI Disturbance,Rash Low 06/21/2012 Hydrocodone Nausea and Vomiting Low 03/30/2018 Other reaction(s): Lightheadedness Vancomycin Itching Low 01/29/2022 Benadryl helps Hydrocodone-Acetamin ophen Nausea,Hives,Itchin g,Nausea and Vomiting,Rash,GI Disturbance High 05/30/2011 Medications * This document contains information received from the source organization and may not represent a complete record from that organization. naltrexone (DEPADE/REVIA) 50 MG tablet Take 50 mg by mouth At Bedtime Active vitamin D3 (CHOLECALCIFERO L) 50 mcg (2000 units) tablet Take 1 tablet by mouth daily Active buPROPion (WELLBUTRIN XL) 300 MG 24 hr tablet Take 300 mg by mouth every morning Active busPIRone HCl (BUSPAR) 30 MG tablet Take 30 mg by mouth 2 times daily Active escitalopram (LEXAPRO) 20 MG tablet Take 20 mg by mouth daily Active Melatonin 10 MG TABS tablet Take 10 mg by mouth At Bedtime Active acetaminophen (TYLENOL) 325 MG tabletIndicatio ns:Cellulitis of left lower extremity Take 2 tablets (650 mg) by mouth every 4 hours as needed for mild pain or fever 30 tablet 01/27/20 22 Active bacitracin 500 UNIT/GM external ointmentIndicat ions:Cellulitis of left lower extremity Apply topically 2 times daily 30 g 1 02/01/20 Active hydrOXYzine (ATARAX) 25 MG tablet Take 25 mg by mouth 3 times daily as needed for itching Active docusate sodium (COLACE) 100 MG capsuleIndicati ons:Constipatio n, unspecified constipation type Take 1 capsule (100 mg) by mouth 2 times daily as needed for constipation 60 capsule 1 02/09/20 22 Active fluconazole (DIFLUCAN) 150 MG tabletIndicatio ns:Acute vaginitis Take one tablet each day for 3 days 3 tablet 1 02/21/20 22 Active prazosin (MINIPRESS) 2 MG capsuleIndicati ons:Nightmares Take 1 capsule (2 mg) by mouth At Bedtime 30 capsule 1 02/21/20 22 Active etonogestrel (NEXPLANON) 68 MG IMPL 1 each by Subdermal route once Inserted 07/2021 Discontinued Active Problems Problem Noted Date Diagnosed Date Hepatitis B, chronic 05/16/2022 Cellulitis 01/28/2022 Cellulitis of left lower extremity 01/24/2022 Class 2 obesity due to exces s calories without serious comorbidity with body mass index (BMI) of 38.0 to 38.9 in adult 01/03/2022 Chronic bilateral low back pain without sciatica 01/03/2022 Tobacco use disorder 04/09/2017 test positive 04/09/2017 IVDU (intravenous drug user) 11/05/2015 Hydradenitis 02/23/2015 Asthma 07/22/2013 Overview (03/26/2015): Problem list name updated by automated process. Provider to review Chemical dependency 07/16/2013 Adjustment disorder with anxiety 12/31/2007 Overview (04/05/2017): Overview: LW Modifier: and anxiety ; Adjustment Dis w Anxious Mood Immunizations Name Administration Dates Next Due COVID-19 MONOVALENT 12+ (Shootitlive) 05/30/2021 DT (PEDS <7y) 02/03/1998, 7,10/08/1995,08/17,07/20/1995 DTAP (<7y) 02/03/1998, 7,10/18/1996,10/07,08/17/1995,07/20/1995 Flu, Unspecified 04/09/2017,05/22/2006 HIB (PRP-T) 08/17/1995 HPV 10/15/2018 HPV Quadrivalent 07/22/2007 HepB, Unspecified 10/21/1996 Hepatitis A (VAQTA)(ADULT 19+) 11/28/2013 Hepatitis A (Vaqta/Havrix)(P eds 12m-18y) 07/22/2007 Hepatitis B, Adult (Energix-B/Recombivax HB) 03/20/1997,10/21/1996,08/17/1995,07/20 Hepatitis B, Peds (Engerix-B/Recombivax HB) 03/20/1997,03/20/1997,10/21/1996 Historical DTP/aP 02/03/1998, 8,02/03/1998,03/20,03/20/1997,10/18/1996,10/18/1996 ,10/18/1996,10/08/1995,10/08/1995,09/23,08/17/1995,08/17/1995, 6,07/20/1995,07/20/1995,07/20/1995 Influenza (IIV3) PF 03/29/2012,03/22/2011,2005 Influenza (prior to 2023) 03/29/2012,03/22/2011, 05/22/2006 Influenza Vaccine >6 months,quad, PF 11/2020,04/02/2019,06/06/2018,06/06,04/09/2017,04/16/2013,03/29/2012 ,03/22/2011,03/22/2011,05/22/2006 Influenza Vaccine IM Ages 6- 35 Months 4 Valent (PF) 04/16/2013,03/29/2012,03/22/2011 Influenza Vaccine, 6+MO IM (QUADRIVALENT W/PRESERVATIVES) 07/05/2020,04/09/2017 MMR (MMRII) 02/03/1998, 8,07/20/1995,07/20 Mantoux Tuberculin Skin Test 08/21/2018,09/20/19 13,09/10/2007 Meningococcal (Menomune ) 07/22/2007 Meningococcal ACWY (Menactra ) 07/22/2007 Meningococcal ACWY (Menveo ) 07/22/2007 OPV, trivalent, live 02/03/1998,03/20/19 97,08/17/1995,07/20 OPV, unspecified 02/03/1998, 7,08/17/1995,07/20 Pneumococcal 23 valent 11/03/2011 Poliovirus, inactivated (IPV) 02/03/1998 ,03/20/1997,08/17/1995,07/20 TDAP Vaccine (Adacel) 03/28/2016,11/26/2012,01/2005 TDAP Vaccine (Boostrix) 03/28/2016,11/26/2012, Varicella (Varivax) 07/22/2007,10/08/1995 Family History Medical History Relation Comments Anxiety Disorder Brother Learning Disorder Brother Chronic Obstructive Pulmonary Disease Father Melanoma Father Diabetes Maternal Aunt 1 Thyroid Disease Maternal Aunt 1 Diabetes Maternal Aunt 2 Thyroid Disease Maternal Aunt 2 Thyroid Disease Maternal Aunt 3 LUNG DISEASE Maternal Aunt 4 Anxiety Disorder Maternal Grandmother Depression Maternal Grandmother LUNG DISEASE Maternal Grandmother Anxiety Disorder Mother Depression Mother LUNG DISEASE Mother Substance Abuse Mother Parkinsonism Paternal Grandfather Heart Disease Paternal Grandmother Melanoma Paternal Grandmother Anxiety Disorder Sister 1 Learning Disorder Sister 1 Anxiety Disorder Sister 2 Substance Abuse Sister 2 Relation Status Comments Brother Alive Daughter Alive Father Alive Maternal Aunt 1 Alive Maternal Aunt 2 Alive Maternal Aunt 3 Alive Maternal Aunt 4 Maternal Grandfather Maternal Grandmother Mother Alive Paternal Grandfather Paternal Grandmother Alive Sister 1 Alive Sister 2 Alive Son Alive Social History Tobacco Use Types Packs/Day Years Used Date Smoking Tobacco: Former Smokeless Tobacco: Never Tobacco Cessation:Ready to Q uit: Yes; Counseling Given: No Comments:Started smoking at age 19. 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 Gender Identity Not on file Sexual Orientation Not on file Occupation Industry Job Start Date Job End Date Not on file Not on file Not on file Not on file Last Filed Vital Signs Vital Sign Reading Time Taken Comments Blood Pressure 137/94 10/01/2022 3:24 PM CDT Pulse 98 10/01/2022 3:24 PM CDT Temperature 36.9 C (98.4 F) 10/01/2022 3:24 PM CDT Respiratory Rate 16 10/01/2022 3:24 PM CDT Oxygen Saturation 96% 10/01/2022 3:24 PM CDT Inhaled Oxygen Concentration - - Weight 127 kg (280 lb) 02/08/2022 3:35 PM CDT Height 180.3 cm (5' 11) 02/08/2022 3:35 PM CDT Body Mass Index 39.05 02/08/2022 3:35 PM CDT Plan of Treatment Health Maintenance Due Date Last Done Comments ADVANCE CARE PLANNING 1992 ANNUAL REVIEW OF HM ORDERS 1992 ASTHMA ACTION PLAN 1992 ASTHMA CONTROL TEST 1992 Pneumococcal Vaccine: Pediatrics (0 to 5 Years) and At-Risk Patients (6 to 49 Years) (2 of 2 - PCV) 11/02/2012 11/03/2011 PAP 2013 HPV IMMUNIZATION (3 - 3-dose series) 01/07/2019 10/15/2018, 07/22/2007 YEARLY PREVENTIVE VISIT 05/30/2023 05/30/20, 01/03/2022, 07/20/2020, Additional history exists COVID-19 Vaccine ( season) 2024 05/30/2021, 11/12/2020, 10/15/2020 INFLUENZA VACCINE (#1) 2024 , 07/05/2020, 04/02/2019, Additional history exists PHQ-2 (once per calendar year) 2024 02/08/2022, 02/08/2022, 01/03/2022, Additional history exists DTAP/TDAP/TD IMMUNIZATION (11 - Td or Tdap) 03/28/2026 03/28/2016, 03/28/2016, 11/26/2012, Additional history exists ZOSTER IMMUNIZATION (1 of 2) 2042 MENINGITIS IMMUNIZATION Aged Out 07/22/19 08, 07/22/2007, 07/22/2007 No longer eligible based on patient's age to complete this topic HEPATITIS A IMMUNIZATION Completed 11/28/2013, 06/26 HEPATITIS C SCREENING Completed 02/09/2022 HIV SCREENING Completed 02/09/2022 Procedures Procedure Name Priority Date/Time Associated Diagnosis Comments HIV ANTIGEN ANTIBODY COMBO Routine 02/09/2022 4:22 PM CDT Routine screening for STI (sexually transmitted infection) HEPATITIS C SCREEN REFLEX TO HCV RNA QUANT AND GENOTYPE Routine 02/09/2022 4:22 PM CDT History of substance use from Last 3 Months or Most Recently Relevant to Health Maintenance Results * HIV Antigen Antibody Combo (02/09/2022 4:22 PM CDT) HIV Antigen Antibody Combo Nonreactive Nonreactive 02/10/2022 11:00 AM CDT [facility] Comment:HIV-1 p24 Ag & HIV-1 /HIV-2 Ab Not Detected Blood STRUCTURE OF RIGHT UPPER LIMB / Unknown Venipuncture / Unknown 02/09/2022 4:22 PM CDT 02/09/2022 4:23 PM CDT Jess Gonzalez APRN [employer] [facility] - BLOOD ORDER ROBIN Final Result [facility] [address] [address], [facility] [phone] * Hepatitis C Screen Reflex to HCV RNA Quant and Genotype (02/09/2022 4:22 PM CDT) Hepatitis C Antibody Nonreactive Nonreactive 02/10/2022 11:00 AM CDT [facility] Blood STRUCTURE OF RIGHT UPPER LIMB / Unknown Venipuncture / Unknown 02/09/2022 4:22 PM CDT 02/09/2022 4:23 PM CDT Narrative [facility] - 02/10/2022 11:00 AM CDT Assay performance characteristics have not been established for newborns, infants, and children. Jess Gonzalez NEWS INTERN [facility] - BLOOD ORDER ROBIN Final Result [facility]End[facility] [address] [facility] [address] Building, [address] [phone] from Last 3 Months or Most Recently Relevant to Health Maintenance Insurance [facility] Advance Directives For more information, please contact: [phone] * Full Code (Latest Code Status on File) Date Activated Date Inactivated Comments 01/29/2022 2:05 AM 01/31/2022 1:01 PM All basic and advanced life-sustaining interventions are performed as appropriate Question Answer Comments Code status determined by: Discussion with patie nt/ legal decision maker * Full Code Date Activated Date Inactivated Comments 01/24/2022 5:27 PM 01/27/2022 2:47 PM All basic and advanced life-sustaining interventions are performed as appropriate Question Answer Comments Code status determined by: Unable to dis cuss and no AD/POLST on file; continue PREVIOUSLY ORDERED code status Care Teams Liquid Sugar Fortifier Relationship Specialty Start Date End Date Starr Toussaint PCP - General 04/04/21 Naomi Hummel NP [address] [place] [id number] Assigned PCP 07/19/23
[2024-09-04 23:23] LABS: Basophils Absolute Auto 0.07 K/uL (0.00-0.30); Basophils Percent Auto 0.7 % (0.0-3.0); Eosinophils Absolute Auto 0.36 K/uL (0.00-0.50); Eosinophils Percent Auto 3.7 % (0.0-7.0); Hematocrit 35.5 % (33.0-51.0); Hemoglobin* 11.4 gm/dL (12.0-16.0); Immature Granulocytes Abs Auto 0.05 K/uL (0.00-0.30); Immature Granulocytes Pct Auto 0.5 %; Lymphocytes Absolute Auto 3.27 K/uL (0.90-2.90); Mean Corpuscular HGB Conc 32 gm/dL (32-36); Mean Corpuscular Hemoglobin 29 pg (26-34); Mean Corpuscular Volume 91 fL (80-100); Monocytes Percent Auto 6.2 % (0.0-11.0); Neutrophils Absolute Auto 5.27 K/uL (1.7-7.0); Neutrophils Percent Auto 54.9 % (42.0-72.0); Platelet Count* 402 K/uL (140-440); RDW Coefficient of Variation % 14.4 % (11.5-15.5); Red Blood Count 3.89 m/uL (4.00-5.20); White Blood Count* 9.62 K/uL (4.50-11.00)
[2024-09-04 23:26] LABS: Slide Review Reflex No
[2024-09-04 23:45] LABS: C Reactive Protein* 1.8 mg/dL (0.5-1.0)
[2024-09-05] MEDS: cefTRIAXone 1 GM VIAL IM (00:30)
[2024-09-05] MEDS: LIDOCAINE 1% 5 ml (pf) 5 ML VIAL 2.1 ML IM (00:30)
[2024-09-05 00:32] VITALS: BP 135/83; PULSE 85; RESP 16; TEMP 37.1; O2SAT 98
[2024-09-05 00:40] VITALS: BP 135/83; PULSE 85; RESP 16; TEMP 37.1
== END 2024-09-05 00:40 | disposition home or self-care (01) ==
PROVIDERS: Emergency Provider Family Medicine; PCP Nurse Practitioner Family
DX: L03.116 Cellulitis of left lower limb (principal); L03.115 Cellulitis of right lower limb; R60.9 Edema, unspecified
CPT/HCPCS: 36415; 85025; 86140; 93970; 96372; 96374; 99284; J0696

== ENCOUNTER 2024-10-15 16:24 | Emergency (ER) | payer MEDICAID, SELFPAY ==
[2024-10-15 16:29] VITALS: BP 127/79; PULSE 84; RESP 16; TEMP 36.8; O2SAT 99; BMI 37.7
--- NOTE | 2024-10-15 16:36 | ED.CHESTPAIN ---
HPI - Chest Pain General Time Seen by Provider: 16:36 Date Seen: 10/15/24 Chief Complaint: Chest Pain Stated Complaint: Chest pain Time Seen by Provider: 10/15/24 16:28 Source: patient, RN notes reviewed and old records reviewed Mode of arrival: ambulatory Limitations: no limitations History of Present Illness HPI narrative: This 34yo female is coming into the ED with concern of chest pressure and shortness of breath. Her symptoms have been present for about 3 days now, constant symptoms. She has not been sick, no fevers, no chills, no abdominal pain, no reflux symptoms, no nausea or vomiting, no symptoms of asthma exacerbation, no wheezing, no cough or cold symptoms. No history of blood clots with her or any in the family that she is aware of. Has nexplanon. She has not felt any irregular heart beat or palpitations with this. She states that she is probably just wasting our time, reviewed with her that we absolutely are happy to see her and cannot tell her that things are okay for her without a workup. She has shortness of breath, feels a just at rest. She does not feel like her asthma has been problematic through any of this. She states she had a recent episode of similar symptoms but then they went away. She is wondering if this is just anxiety. She is using no illicit drugs. 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 She states she has been sober from meth for over 3 years now, she is commended on this. She historically was having infections from use, no cardiac side effects that she is aware of though. She states her chest just feels heavy with this. complaint: chest pain Related Data Home Medications ?Medication ?Instructions ?Recorded ?Confirmed ergocalciferol (vitamin D2) 1,250 1,250 mcg PO Q7D 12/12/23 10/15/24 mcg (50,000 unit) capsule (Vitamin D2) escitalopram oxalate 20 mg tablet 20 mg PO DAILY 12/12/23 10/15/24 bupropion HCl 75 mg tablet 75 mg PO BID 10/15/24 10/15/24 hydroxyzine HCl 10 mg tablet mg PO 10/15/24 Previous Rx's ?Medication ?Instructions ?Recorded albuterol sulfate 90 mcg/actuation 2 puff inhalation Q4-6H PRN 02/20/24 aerosol inhaler (Ventolin HFA) shortness of breath or wheezing #8.5 grams Allergies Allergy/AdvReac Type Severity Reaction Status Date / Time vancomycin Allergy Intermediate Hives Verified 09/04/24 22:11 Review of Systems Status of ROS Reports: 6 or more systems reviewed and unremarkable except as noted in History and below [facility] Medical History Bilateral temporomandibular joint pain ?M26.623 - Arthralgia of bilateral temporomandibular joint (ICD-10) Dental caries ?K02.9 - Dental caries, unspecified (ICD-10) Methamphetamine abuse ?F15.10 - Other stimulant abuse, uncomplicated (ICD-10) PTSD (post-traumatic stress disorder) ?F43.10 - Post-traumatic stress disorder, unspecified (ICD-10) Opioid abuse ?F11.10 - Opioid abuse, uncomplicated (ICD-10) Hydradenitis ?L73.2 - Hidradenitis suppurativa (ICD-10) HSV infection ?B00.9 - Herpesviral infection, unspecified (ICD-10) Depression ?F32.A - Depression, unspecified (ICD-10) Chronic headaches ?R51.9 - Headache, unspecified (ICD-10) ?G89.29 - Other chronic pain (ICD-10) Anxiety ?F41.9 - Anxiety disorder, unspecified (ICD-10) Surgical History History of surgery ?Z98.890 - Other specified postprocedural states (ICD-10) Social History Smoking Status: Current every day smoker What tobacco products do you use: cigarettes Do you use any of these nicotine containing products: Vaping Products Second hand tobacco smoke exposure: No How often do you have a drink containing alcohol: never How often do you have six or more drinks on one occasion: Never AUDIT-C Alcohol total score: 0 Non-prescribed substance use: denies use service: No Exam Const Vital Signs, click to edit/add: Vital Signs - 24 hr 10/15/24 16:29 Temperature 98.2 F Pulse Rate [Pulse Oximeter] 84 Respiratory Rate 16 Blood Pressure [Right Upper Arm] 127/79 Pulse Oximetry 99 Oxygen Delivery Method Room Air This 34-year-old female is alert, interactive, no apparent stress but overall have the sense that she is mildly anxious. Sclera clear, extraocular muscles intact. She has good eye contact. Symmetrical facial function, speech is normal. Neck is supple, no adenopathy, no thyromegaly masses or nodules. Lungs are clear, good air entry, no wheezing or crackles, no tachypnea, no accessory muscle use. CV regular rate and rhythm, do not hear any murmur, normal S1-S2, no S3-S4. Abdomen is obese but soft, nontender, nondistended, no organomegaly, no rebound or guarding. She has no calf tenderness, no lower extremity edema. She has small circular scabs, about 5 0 mom seen by the lower ankles, 1 on top of the foot. She notes that she had some bug bites or or something that was itching, she had has a history of scratching and picking at her skin. These have no surrounding erythema, no appearance of infection. Documenting provider has reviewed patient's vital signs: yes Course Course ED Course: This 34-year-old female is presenting with shortness of breath that is nonexertional and chest pain in the form of pressure. She has history of methamphetamine use but nothing current per report. She has no evidence of infection based on her history. Reviewed with her that we should look at EKG, troponin looking for ischemic disease. Will have her on cardiac monitoring and pulse oximetry to ensure no hypoxia, no arrhythmia. She has not had any palpitations or sense of irregular heartbeat which seems that arrhythmia is more unlikely. She technically is PERC rule negative but does have progesterone Nexplanon in place, has a history of methamphetamine use and do feel that we still should consider thromboembolic disease. Will order a D-dimer. Will start with a portable chest x-ray but will move to advanced imaging if clinically necessary based on monitoring here or lab results. Reevaluation(s) Time of Reevaluation #1: 17:04 Reevaluation #1: When nursing staff was coming in to start IV, do blood work, patient requested to leave. I did go back in to talk to her. She states the needles in the blood work are triggering her. I reviewed with her that I certainly understand but I cannot tell her that she is truly okay if we do not do this workup. She feels it is just her anxiety, I reviewed with her I cannot tell her that and really do try to talk her into staying to do the workup. She is adamant that she wants to go home. I have reviewed with her that if she changes her mind at any point we will absolutely see her back and request she comes back. I have requested that she contact her primary in follow-up tomorrow for recheck since she has not done any workup here. She does tell me that if things are worsening for her, she promises me that she will return. Vital Signs Vital signs: Initial Vital Signs Temperature 98.2 F 10/15/24 16:29 Temperature Source Temporal Artery Scan 10/15/24 16:29 Pulse Rate 84 10/15/24 16:29 Respiratory Rate 16 10/15/24 16:29 Blood Pressure 127/79 10/15/24 16:29 Blood Pressure Mean 95 10/15/24 16:29 Blood Pressure Position Sitting 10/15/24 16:29 Pulse Oximetry 99 10/15/24 16:29 Oxygen Delivery Method Room Air 10/15/24 16:29 Vital Signs Temperature 98.2 F 10/15/24 16:29 Pulse Rate 84 10/15/24 16:29 Respiratory Rate 16 10/15/24 16:29 Blood Pressure 127/79 10/15/24 16:29 Pulse Oximetry 99 10/15/24 16:29 Oxygen Delivery Method Room Air 10/15/24 16:29 Temperature 98.2 F 10/15/24 16:29 Pulse Rate 84 10/15/24 16:29 Respiratory Rate 16 10/15/24 16:29 Blood Pressure 127/79 10/15/24 16:29 Pulse Oximetry 99 10/15/24 16:29 Oxygen Delivery Method Room Air 10/15/24 16:29 Discharge Plan Discharge Clinical Impression: Shortness of breath Chest pain Qualifiers: Chest pain type: unspecified Qualified Code(s): R07.9 - Chest pain, unspecified Patient Disposition: Left Against Medical Advice Condition: Stable Prescriptions: No Action ergocalciferol (vitamin D2) [Vitamin D2] 1,250 mcg (50,000 unit) capsule 1,250 mcg PO Q7D escitalopram oxalate 20 mg tablet 20 mg PO DAILY albuterol sulfate [Ventolin HFA] 90 mcg/actuation HFA aerosol inhaler 2 puff inhalation Q4-6H PRN (Reason: shortness of breath or wheezing) Qty: 8.5 0RF bupropion HCl 75 mg tablet 75 mg PO BID hydroxyzine HCl 10 mg tablet PO Follow Up/Referrals: Starr Toussaint NP [Primary Care Provider] - Stand Alone Forms: [employer] Info Instructions
--- NOTE | 2024-10-15 16:47 | CRLHL7_ITS ---
For Patients: As a result of the Cures Act, medical imaging exams and procedure reports are released immediately into your electronic medical record. You may view this report before your referring provider. If you have questions, please contact your health care provider. INDICATION: Chest pain. Shortness of breath TECHNIQUE: Chest 1 views. COMPARISON: Radiograph 2023. FINDINGS: Lungs: Normal lung volume. No consolidation. The tracheobronchial tree and hilar structures are unremarkable. Pleura: No pleural effusion or pneumothorax. Heart and Mediastinum: Normal heart size. The great vessels of the thorax are unremarkable. Bones: No acute displaced osseous process. IMPRESSION: No consolidation. Dictated by Bryn Edmondson MD @ 10/15/2024 5:38:07 PM (Electronically Signed)
--- OUTSIDE RECORDS SUMMARY | 2024-10-15 17:28 | XMS_ITS | Encounter Summary ---
Author Organization [facility] Address [address] [place] [address] Care Team Providers Care Thiokol Operator Name Role Phone No Ref-Primary, Physician Primary Care Provider Umu Calderon NP Primary Care Provider [phone] No Ref-Primary, Physician Primary Care Provider Starr Toussaint Primary Care Provider + [phone] Naomi Hummel DISTRICT MEDICAL EXAMINER Unavailable [phone] Reason for Visit * Reason Comments Other Encounter Details Date Type Department Care Team ([facility] Contact Info) Description 09/11/[address] 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 No / Unsure 10/01/2022 3:19 PM CDT documented as of this encounter Miscellaneous Notes * Telephone Encounter - Tavares Fleming - 09/11/2013 9:22 AM CDT Message copied by TAVARES FLEMING on SunSep 11, 2013 9:22 AM ------ Message from: AFSHIN WRIGHT Created: SunSep 10, 2013 3:41 PM Regarding: Phase II Please schedule pt for 7 Phase II sessions with [facility] on Mondays from 7:30-9pm, group [id number]. Pt to begin on 09/15/13. Thanks. documented [...] documented as of this encounter Care Teams Thiokol Operator Relationship Specialty Start Date End Date No Ref-Primary, Physician PCP - General 07/28/13 04/04/17 Umu Calderon NP [facility] [address] [address] PCP - General 04/05/17 01/29/18 No Ref-Primary, Physician PCP - General 05/22/18 04/03/21 Starr Toussaint PCP - General 04/04/21 Naomi Hummel NP [address] [place] [id number] Assigned PCP 07/19/23 documented as of this encounter
--- OUTSIDE RECORDS SUMMARY | 2024-10-15 17:28 | XMS_ITS | Encounter Summary ---
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
--- OUTSIDE RECORDS SUMMARY | 2024-10-15 17:28 | XMS_ITS | Clinical Summary ---
Author Organization [facility] Address [address] [place] [address] Care Team Providers Care Technical Solutions Director Name Role Phone Starr Toussaint APRN, RICE DRYER MECHANIC Primary Care Prov ider Allergies Active Allergy Reactions Criticality Noted Date Comments Codeine Vomiting,Nausea,Ligh ankit dedness,Rash Medium 06/21/2012 Other reaction(s): Rash Hydrocodone Lightheadedness Low 03/30/2018 Vancomycin Itching Low 01/29/2022 Benadryl helps Hydrocodone-Acetamino phen Nausea 04/23/2011 Medications etonogestreL (NEXPLANON) 68 mg Sdrm implant Inject 1 each (68 mg) under the skin. 07/29/19 19 Active acetaminophen (TYLENOL) 325 mg oral tablet Take 2 tablets (650 mg) by mouth every four (4) to six (6) hours as needed. Active Blood-Glucose Sensor (FREESTYLE DORIS 3 SENSOR) deviceIndicat ions:Morbid obesity (HCC),Elevate d glucose level Use to monitor glucose per pushcart peddler instructions. Apply new sensor every 14 days. 5 each 1 09/21/19 24 Active albuterol HFA (PROVENTIL;VE NTOLIN HFA) 90 mcg/actuation Inhl inhalerIndica tions:Wheezin g,Viral illness Inhale 2 puffs every 4 (four) hours as needed. 18 g 3 02/20/20 24 Active VITAMIN D2 1,250 mcg (50,000 unit) oral capsuleIndica tions:Vitamin D deficiency TAKE 1 CAPSULE BY MOUTH EVERY SEVEN DAYS 4 capsule 07/10/19 25 Active buPROPion 75 mg oral tabletIndicat ions:MDD (major depressive disorder), recurrent episode, moderate (HCC),ANAM (generalized anxiety disorder) TAKE 1 TABLET BY MOUTH TWICE A DAY 180 tablet 2 09/16/19 25 Active hydrOXYzine (ATARAX) 10 mg oral tabletIndicat ions:Panic attack Take 1-3 tablets (10-30 mg) by mouth twice a day as needed (anxiety). Max dose of 100 mg per 24 hours. 60 tablet 1 10/15/19 25 Active escitalopram oxalate (LEXAPRO) 10 mg oral tabletIndicat ions:MDD (major depressive disorder), recurrent episode, moderate (HCC),ANAM (generalized anxiety disorder),Forrester ic attack Take 3 tablets (30 mg) by mouth once daily. 270 tablet 10/15/19 25 Active escitalopram oxalate (LEXAPRO) 20 mg oral tabletIndicat ions:ANAM (generalized anxiety disorder),MDD (major depressive disorder), recurrent episode, moderate (HCC) TAKE 1 TABLET BY MOUTH DAILY 30 tablet 10/22/19 24 2024 Discontinued WEGOVY 1.7 mg/0.75 mL SubQ pen injectorIndic ations:Type 2 diabetes mellitus with hyperglycemia , without long-term current use of insulin (HCC),Morbid obesity (HCC) INJECT 1.7MG SUBCUTANEOUSLY EVERY 7 DAYS 3 mL 05/08/20 24 2024 Discontinued semaglutide (WEGOVY) 0.5 mg/0.5 mL SubQ pen injectorIndic ations:Morbid obesity (HCC) Inject 0.5 mg under the skin every 7 (seven) days. 2 mL 05/21/20 24 2024 Discontinued semaglutide (WEGOVY) 1.7 mg/0.75 mL SubQ pen injectorIndic ations:Morbid obesity (HCC) Inject 1.7 mg under the skin every 7 (seven) days. 3 mL 1 05/21/20 24 2024 Discontinued semaglutide (WEGOVY) 1 mg/0.5 mL SubQ pen injectorIndic ations:Morbid obesity (HCC) Inject 1 mg under the skin every 7 (seven) days. 0.5 mL 1 09/11/19 25 2024 Discontinued Active Problems Problem Noted Date Diagnosed Date Hepatitis B, chronic 05/16/2022 Chronic bilateral low back pain without sciatica 01/03/2022 ANAM (generalized anxiety disorder) 07/28/2019 Nexplanon insertion 07/30/2018 PTSD (post-traumatic stress disorder) 2017 MDD (major depressive disord er), recurrent episode, moderate 2017 Binge eating 2017 Hydradenitis 02/23/2015 Chemical dependency 07/16/2013 Asthma 02/12/2006 Overview (10/01/2020): Overview: LW Modifier: Likely EIA LW Onset: [id number] Problem list name updated by automated process. Provider to review LW Modifier: Likely EIA LW Onset: [id number] ; Asthma NOS Problem list name updated [...] trimester 2017 10/20/2020 Overview (10/01/2020): On 06/15/17, [facility] Methamphetamine use disorder , moderate, dependence 2017 11/17/2022 Overview (11/21/2021): Last Assessment & Plan: Living at [employer] [facility]. Starting outpatient treatment through [facility] today. Recently relapsed on Meth yesterday, IV [...] obtain ROLDAN upon admit and fax to [facility] to facilitate dose verification. Please contact Adelia Mathur [phone] at the time of hospital admission. If she is on a split dose, discharge to outpatient MAT can be complicated. Pt has take outs Sunday and Sunday PT instructed to take dose prior to csection. Methadone maintenance is confidential. (Pt's partner/fob is aware) Methadone maintenance from [facility] 150 mg. Please obtain ROLDAN upon admit and fax to [facility] to facilitate dose verification. Please contact Adelia Mathur [phone] at the time of hospital admission. If [...] anxiety ; Adjustment Dis w Anxious Mood Encounters Date Type Department Care Team Description 10/14/2024 1:00 PM CDT Virtual Visit [facility] [address] [place] [address] [place] [phone] Starr Toussaint, TELEPHONIC NURSE, RICE DRYER MECHANIC MDD (major depressive disorder), recurrent episode, moderate (HCC) (Primary Dx); ANAM (generalized anxiety disorder); Panic attack from Last 3 Months Immunizations Name Administration Dates Next Due DTP [...] (Moderna) 12+ Yrs M onovalent COVID Vaccine (forepart reducer) 11/12/2020,10/15/2020 Tdap 03/28/2016,11/26/2012,03/02/2005 Varicella 07/22/2007,10/08/1995 Family History [...] Answer Date Recorded PHQ2 Total 0 05/21/2024 [facility] Alicia of Occupat ional Health - Occupational Stress [...] 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 on file Not on file Not on file Last Filed Vital Signs Vital Sign Reading Time Taken Comments Blood Pressure 120/80 05/21/2024 10:48 AM EMERGENCY MANAGER Pulse 83 05/21/2024 10:48 AM EMERGENCY MANAGER Temperature 36.6 C (97.9 F) 05/21/2024 10:48 AM EMERGENCY MANAGER Respiratory Rate 18 11/13/2021 2:52 PM CDT Oxygen Saturation 98% 05/21/2024 10: 48 AM EMERGENCY MANAGER Inhaled Oxygen Concentration - - Weight 125.1 kg (275 lb 12.8 oz) 2023 10:48 AM EMERGENCY MANAGER Height 180.3 cm (5' 11) 05/21/2024 10: 48 AM EMERGENCY MANAGER Body Mass Index 38.47 05/21/2024 10:48 AM EMERGENCY MANAGER Plan of Treatment Health Maintenance Due Date Last Done Comments Eye Exam 1992 Pneumococcal Vaccine (2 of 2 - PCV) 11/02/2012 11/03/2011 COVID-19 Vaccine (4 - 2023-2 5 season) 2024 05/30/2021, 11/12/2020, 10/15/2020 HgbA1C 11/18/2024 05/21/2024, 08/23, 05/30/2022, Additional history exists Influenza Vaccine (Season Ended) 2025 05/30/2021, 05/30/2021, 07/05/2020, Additional history exists Anxiety Follow-Up (ANAM-7) 05/21/2025 05/21/2024 Creatinine 05/21/2025 05/21/2024, 08/23, 05/30/2022, Additional history exists Depression Follow-Up (PHQ-9) 05/21/2025 05/21/2024 Lipid Screening 05/21/2025 05/21/2024, 12/0 11/2021, 02/07/2021, Additional history exists Microalbumin Q12 Month 05/21/2025 05/21/2024 Pap Smear 05/30/2025 05/30/2022, 08/06/2018 Adult Tetanus Booster 03/28/2026 03/28/2016 , 11/26/2012, 03/02/2005 RSV Vaccines (1 - 1-dose 75+ series) 2067 Hepatitis C Screening Completed 05/30/2022 , 07/20/2020, 07/11/2018 Procedures Procedure Name Priority Date/Time Associated Diagnosis Comments MICROALBUMIN URINE (BFM / STH ONLY) Routine 05/21/2024 11:31 AM EMERGENCY MANAGER Type 2 diabetes mellitus with hyperglycemia, without long-term current use of insulin (HCC) BASIC METAB PROFILE Routine 05/21/2024 1 1:31 AM EMERGENCY MANAGER Type 2 diabetes mellitus with hyperglycemia, without long-term current use of insulin (HCC) Morbid obesity (HCC) LIPID PROFILE CASCADE Routine 05/21/2024 11:31 AM EMERGENCY MANAGER Type 2 diabetes mellitus with hyperglycemia, without long-term current use of insulin (HCC) Morbid obesity (HCC) Screening for cholesterol level HGB A1C (GLYCO HGB) (BFM / STH USE ONLY) Routine 05/21/2024 11:31 AM EMERGENCY MANAGER Type 2 diabetes mellitus with hyperglycemia, without long-term current use of insulin (HCC) Morbid obesity (HCC) ELECTRICIAN POWERHOUSE PAP W/REFLEX APTIMA HPV IF ASCU ([facility]) Routine 05/30/2022 2:16 PM EMERGENCY MANAGER Screening for cervical cancer ACUTE HEPATITIS PANEL ([facility]) Routine 05/30/2022 12:47 PM EMERGENCY MANAGER Screening for condition Abnormal laboratory test result from Last 3 Months or Most Recently Relevant to Health Maintenance Results * MICROALBUMIN URINE (BFM / STH ONLY) (05/21/2024 11:31 AM EMERGENCY MANAGER) MICROALBULIN, URINE OP 7.8 0.0 - 30.0 mg/g [facility] Comment:The microalbumin res ult reported is a urine albumin-creatinine ratio. Urine URINE SPECIMEN OBTAINED BY CLEAN CATCH PROCEDURE / Unknown 05/21/2024 11:31 AM EMERGENCY MANAGER Narrative [facility] - 05/21/2024 4:16 PM EMERGENCY MANAGER Urine Albumin is <0.6 mg/dL. The Albumin/Creatinine ratio is invalid Starr Toussaint APRN, RICE DRYER MECHANIC CHEMISTRY ORDERABL E Final Result [facility] [address] [place] [address], * (ABNORMAL) LIPID PROFILE CASCADE (05/21/2024 11:31 AM EMERGENCY MANAGER) CHOLESTEROL 187 0 - 200 mg/dL [facility] NON-HDL CHOLESTEROL 140.7(H) 0.0 - 130.0 mg/dL [facility] TRIGLYCERIDES 178.0 0.0 - 200.0 mg/dL [facility] HDL 46.3 40.0 - 60.0 mg/dL [facility] LDL 105.0 0.0 - 130.0 [facility] CHOL HDL RATIO 4.0(H) 0.0 - 4.0 [facility] Blood VENOUS BLOOD SPECIMEN / Unknown 05/21/2024 11:31 AM EMERGENCY MANAGER Starr Toussaint APRN, CNP CHEMISTRY ORDERABL E Final Result Performing Organization Address City/[facility]/ZIP Co de Phone Number [address] [address], [place] [phone] * HGB A1C (GLYCO HGB) (BFM / STH USE ONLY) (05/21/2024 11:31 AM EMERGENCY MANAGER) HGBA1C OP 5.0 4.0 - 5.6 % [facility] Blood VENOUS BLOOD SPECIMEN / Unknown 05/21/2024 11:31 AM EMERGENCY MANAGER Starr Toussaint APRN, CNP CHEMISTRY ORDERABL E Final Result Performing Organization Address [facility] Co de Phone Number [address] [address], [place] [phone] * (ABNORMAL) BASIC METAB PROFILE (05/21/2024 11:31 AM EMERGENCY MANAGER) GLUCOSE CASUAL OP 87 74 - 106 mg/dL [facility] BUN 8.9 7.0 - 20.0 mg/dL [facility] CREATININE 0.69(L) 0.70 - 1.50 mg/dL [facility] CALCIUM 9.6 8.5 - 10.4 mg/dL [facility] SODIUM 138.9 137.0 - 145.0 mmol/L [facility] POTASSIUM 4.3 3.5 - 5.1 mmol/L [facility] CHLORIDE 110.7(H) 98.0 - 107.0 mmol/L [facility] CO2 20.9(L) 22.0 - 30.0 mmol/L [facility] EST GFR (MDRD) 99.2 [facility] Comment: Calculated GFR for the patient 18 and older:Normal Kidney Function: >/-90Mild Decreased GFR: 60 - 89Moderated Decreased GFR: 30 - 59Severe Decreased GFR: 15 - 29Kidney Failure: <15 (or dialysis)If the patient is , the calculated GFR should be multiplied by 1.21. Units of measure for GFR = mL/min/1.51z2Lfc GFR value is not valid for patients under 18 years of age. Please disregard. Blood VENOUS BLOOD SPECIMEN / Unknown 05/21/2024 11:31 AM EMERGENCY MANAGER Starr Toussaint TELEPHONIC NURSE, RICE DRYER MECHANIC CHEMISTRY ORDERABL E Final Result [facility] [address] [address], * ELECTRICIAN POWERHOUSE PAP W/REFLEX APTIMA HPV IF ASCU ([facility]) (05/30/2022 2:16 PM EMERGENCY MANAGER) Diagnosis: ([facility]) Comment [facility] 1 Comment: NEGATIVE FOR INTRAEPITHELIAL LESION OR MALIGNANCY. Specimen Adequacy: ([facility]) Comment [facility] 1 Comment: Satisfactory for evaluation. Endocervical and/or squamous metaplastic cells (endocervical component) are present. Clinician Provided ICD10: ([facility]) Comment [facility] 2 Comment: Z12.4 Performed by: Comment [facility] 1 Comment: Herber Garzon Sr, Enrollment Management Manager (ASCP) Cyto Comments ([facility]) . [facility] 1 [...] UTERI STRUCTURE / Unknown 05/30/2022 2:16 PM EMERGENCY MANAGER 05/30/2022 11:00 PM EMERGENCY MANAGER Comment:Pap Narrative [facility] 1 - 06/01/2022 3:09 PM EMERGENCY MANAGER Performed at: - [facility] [address] [id number] Dispatcher Chief Oil: Lizbeth Chambers MD, Phone: [phone] Performed at: - [facility] [id number] [id number] Dispatcher Chief Oil: Satnam Garcia MD, Phone: [phone] Specimen Comment: Source.............Cervix Specimen Comment: LMP / Prev Treat...None Specimen Comment: No. of containers..01 ThinPrep Vial Starr Toussaint APRN, RICE DRYER MECHANIC [facility] ORDERABLES Final Result Performing Organization Address City/[facility]/ZIP Co de Phone Number [facility] 1 [facility] 2 * ACUTE HEPATITIS PANEL ([facility]) (05/30/2022 12:47 PM EMERGENCY MANAGER) Hepatitis A IgM Antibody ([facility]) Negative Negative [facility] 1 Hepatitis B Surface Antigen Screen ([facility]) Negative Negative [facility] 1 Hepatitis B Core IgM Antibody ([facility]) Negative Negative [facility] 1 Hepatitis C Virus Antibody ([facility]) <0.1 0.0 - 0.9 s/co ratio [facility] 1 Blood BLOOD SPECIMEN / Unknown 05/30/2022 12:47 PM EMERGENCY MANAGER 05/29/2022 11:00 PM EMERGENCY MANAGER Comment:Blood Narrative [facility] 1 - 05/31/2022 10:06 PM EMERGENCY MANAGER Performed at: - [facility] [id number] Dispatcher Chief Oil: Elvis Barrios MD, Phone: [phone] us Starr Toussaint APRN, RICE DRYER MECHANIC [facility] ORDERABLES Final Result Performing Organization Address City/[facility]/ZIP Co de Phone Number [facility] 1 from Last 3 Months or Most Recently Relevant to Health Maintenance Additional Health Concerns Infection Onset Date Last Indicated C. difficile Rule-Out 11/13/2021 11/13/2021 Insurance [facility] PMAP/MNCARE Advance Directives For more information, please contact: [phone] * Full Code (Latest Code Status on File) Date Activated Date Inactivated Comments 11/13/2021 6:09 AM 11/13/2021 10:04 PM Question Answer Comments How was code status determined? Patient Care Teams Technical Solutions Director Relationship Specialty Start Date End Date Starr Toussaint, TELEPHONIC NURSE, RICE DRYER MECHANIC [address] [place] [address]. [address] [place] [address] PCP - General Nurse Practitioner 06/28/23
--- OUTSIDE RECORDS SUMMARY | 2024-10-15 17:28 | XMS_ITS | Encounter Summary ---
Author Organization [facility] Address [address] [place] [address] Care Team Providers Care Billing Control Clerk Name Role Phone No Ref-Primary, Physician Primary Care Provider Starr Toussaint Primary Care Provider [phone] Naomi Hummel ARMORED MACHINE OPERATOR Unavailable [phone] Reason for Visit * Reason Onset Date Comments MH/CD Inpatient 05/22/2018 Encounter Details Date Type Department Care Team ([facility] Contact Info) Description 05/22/2018 Telephone [facility] Behavioral Health Intake [address] [place] [phone] Generic, Behavioral Intake, MH/CD Inpatient Social History [...] on file Legal Sex Female 3:06 PM SLUG PRESS OPERATOR Gender Identity Not on file Sexual Orientation [...] Keane - 05/22/2018 4:44 PM CST R: Kileyadan declined due to not meeting criteria. Phoned Dr. Jackson at 4:45pm and he agreed with the decision- states it was likely drug induced and pt will discharge. PRESS OPERATOR * Telephone Encounter - Teddy Church - 05/22/2018 12:37 PM SLUG PRESS OPERATOR S - Pt. Bib for anxiety and paranoia B - Pt. Currently at [facility] , Pt. Reports paranoia, her hair is getting cut and her sheets aregetting cut. Pt. Feels like she Is being followed and feels vibrations. Pt. Has gone to ED daily for anxiety and psychotic sxs multiple times recenlty. Poor historian. Hx of meth use and opiate abuse. 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 Jackson to consult on her decline and He requested the ability to review the case first and will call intake back to complete the 3 way call nikko was just coming on his shift and had not yet reviewed the case. Awaiting call back PRESS OPERATOR PRESS OPERATOR PRESS OPERATOR documented in this encounter Plan of Treatment Not on file documented as of this encounter Visit Diagnoses Not on filedocumented in this encounter Additional Health Concerns Infection Onset Date Last Indicated Resolved Time Rule Out COVID-19 04/04/2021 04/04/2021 04/04/2021 10:47 AM CDT Rule Out COVID-19 01/24/2022 01/24/2022 01/24/2022 6:16 AM CDT Assessment Noted Time PHQ-9 Depression Total Score: 22 017 2:50 PM SLUG PRESS OPERATOR documented as of this encounter Care Teams Billing Control Clerk Relationship Specialty Start Date End Date No Ref-Primary, Physician PCP - General 05/22/18 04/03/21 Starr Toussaint PCP - General 04/04/21 Naomi Hummel, ARMORED MACHINE OPERATOR [address] [place] [id number] Assigned PCP 07/19/23 documented as of this encounter
--- OUTSIDE RECORDS SUMMARY | 2024-10-15 17:28 | XMS_ITS | Referral Summary ---
Author Organization [facility] Address [address] [place] [address] Care Team Providers Care Pitch Filler Name Role Phone Starr Toussaint APRN, CNP Primary Care Prov ider Encounters Date Type Department Care Team Description 10/14/2024 1:00 PM CDT Virtual Visit [address] [place] [address] Starr Toussaint, AUGUST, DAMASO MDD (major depressive disorder), recurrent episode, moderate (HCC) (Primary Dx); ANAM (generalized anxiety disorder); Panic attack from Last 3 Months Allergies Active Allergy Reactions Criticality Noted Date [...] glucose level Use to monitor glucose per lubrication equipment servicer instructions. Apply new sensor every 14 days. [...] Overview: LW Modifier: Likely EIA LW Onset: [id number] Problem list name updated by automated process. Provider to review LW Modifier: Likely EIA LW Onset: [id number] ; Asthma NOS Problem list name updated [...] (11/21/2021): Last Assessment & Plan: Living at [facility]. Starting outpatient treatment through [facility] today. Recently relapsed on Meth yesterday, IV use, did not share needles. Declines STI testing. IVDU (intravenous drug user) 11/05/2015 05/07/2020 Incomplete 11/14/2014 06/27/19 Acute blood loss anemia 11/14/201406/26 History of methamphetamine abuse 02/16/2013 02/07/2020 delivery delivered 02/13/2013 06/27/2019 Vaginal delivery 11/03/2011 11/18/2019 Oligohydramnios, antepartum 11/01/2011 11/14/2014 Methadone maintenance treatm ent affecting in second trimester 10/11/2011 10/20/2020 Overview (10/01/2020): Methadone maintenance from [place] 150 mg. Please obtain ROLDAN upon admit and [facility] to facilitate dose verification. Please contact Adelia Mathur [phone] at the time of hospital admission. If she is on a split dose, discharge to outpatient MAT can be complicated. Pt has take outs Sunday and Sunday PT instructed to take dose prior to csection. Methadone maintenance is confidential. (Pt's partner/fob is aware) Methadone maintenance from [place] 150 mg. Please obtain ROLDAN upon admit and fax to [facility] to facilitate dose verification. Please contact Adelia Mathur [phone] at the time of hospital admission. 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 Not on file Not on file Last Filed Vital Signs Vital Sign Reading Time Taken Comments Blood Pressure 120/80 05/21/2024 10:48 AM EMERGENCY VEHICLE TECHNICIAN Pulse 83 05/21/2024 10:48 AM EMERGENCY VEHICLE TECHNICIAN Temperature 36.6 C (97.9 F) 05/21/2024 10:48 AM EMERGENCY VEHICLE TECHNICIAN Respiratory Rate 18 11/13/2021 2:52 PM CDT Oxygen Saturation 98% 05/21/2024 10: 48 AM EMERGENCY VEHICLE TECHNICIAN Inhaled Oxygen Concentration - - Weight 125.1 kg (275 lb 12.8 oz) 2023 10:48 AM EMERGENCY VEHICLE TECHNICIAN Height 180.3 cm (5' 11) 05/21/2024 10: 48 AM EMERGENCY VEHICLE TECHNICIAN Body Mass Index 38.47 05/21/2024 10:48 AM EMERGENCY VEHICLE TECHNICIAN Plan of Treatment Not on file Procedures Procedure Name Priority Date/Time Associated Diagnosis Comments MICROALBUMIN URINE (BFM / STH ONLY) Routine 05/21/2024 11:31 AM EMERGENCY VEHICLE TECHNICIAN Type 2 diabetes mellitus with hyperglycemia, without long-term current use of insulin (HCC) BASIC METAB PROFILE Routine 05/21/2024 1 1:31 AM EMERGENCY VEHICLE TECHNICIAN Type 2 diabetes mellitus with hyperglycemia, without long-term current use of insulin (HCC) Morbid obesity (HCC) LIPID PROFILE CASCADE Routine 05/21/2024 11:31 AM EMERGENCY VEHICLE TECHNICIAN Type 2 diabetes mellitus with hyperglycemia, without long-term current use of insulin (HCC) Morbid obesity (HCC) Screening for cholesterol level HGB A1C (GLYCO HGB) (BFM / STH USE ONLY) Routine 05/21/2024 11:31 AM EMERGENCY VEHICLE TECHNICIAN Type 2 diabetes mellitus with hyperglycemia, without long-term current use of insulin (HCC) Morbid obesity (HCC) CHILD SPECIALIST PAP W/REFLEX APTIMA HPV IF ASCU ([facility]) Routine 05/30/2022 2:16 PM EMERGENCY VEHICLE TECHNICIAN Screening for cervical cancer ACUTE HEPATITIS PANEL ([facility]) Routine 05/30/2022 12:47 PM EMERGENCY VEHICLE TECHNICIAN Screening for condition Abnormal laboratory test result from Last 3 Months or Most Recently Relevant to Health Maintenance Results * MICROALBUMIN URINE (BFM / STH ONLY) (05/21/2024 11:31 AM EMERGENCY VEHICLE TECHNICIAN) MICROALBULIN, URINE OP 7.8 0.0 - 30.0 mg/g [facility] Comment:The microalbumin res ult reported is a urine albumin-creatinine ratio. Urine URINE SPECIMEN OBTAINED BY CLEAN CATCH PROCEDURE / Unknown 05/21/2024 11:31 AM EMERGENCY VEHICLE TECHNICIAN Narrative [facility] - 05/21/2024 4:16 PM EMERGENCY VEHICLE TECHNICIAN Urine Albumin is <0.6 mg/dL. The Albumin/Creatinine ratio is invalid us Starr Toussaint APRN, SHREDDER OPERATOR CHEMISTRY ORDERABL E Final Result [facility] [address] [address], [place] [phone] * (ABNORMAL) LIPID PROFILE CASCADE (05/21/2024 11:31 AM EMERGENCY VEHICLE TECHNICIAN) CHOLESTEROL 187 0 - 200 mg/dL [facility] NON-HDL CHOLESTEROL 140.7(H) 0.0 - 130.0 mg/dL [facility] TRIGLYCERIDES 178.0 0.0 - 200.0 mg/dL [facility] HDL 46.3 40.0 - 60.0 mg/dL [facility] LDL 105.0 0.0 - 130.0 [facility] CHOL HDL RATIO 4.0(H) 0.0 - 4.0 [facility] Blood VENOUS BLOOD SPECIMEN / Unknown 05/21/2024 11:31 AM EMERGENCY VEHICLE TECHNICIAN us Starr Toussaint APRN, DAMASO CHEMISTRY ORDERABL E Final Result Performing Organization Address City/[facility]/ZIP Co de Phone Number [address] [address], [place] [phone] * HGB A1C (GLYCO HGB) (BFM / STH USE ONLY) (05/21/2024 11:31 AM EMERGENCY VEHICLE TECHNICIAN) HGBA1C OP 5.0 4.0 - 5.6 % [facility] Blood VENOUS BLOOD SPECIMEN / Unknown 05/21/2024 11:31 AM EMERGENCY VEHICLE TECHNICIAN Starr Toussaint APRN, DAMASO CHEMISTRY ORDERABL E Final Result Performing Organization Address [facility]/ZIP Co de Phone Number [address] [address], [place] [phone] * (ABNORMAL) BASIC METAB PROFILE (05/21/2024 11:31 AM EMERGENCY VEHICLE TECHNICIAN) GLUCOSE CASUAL OP 87 74 - 106 mg/dL [facility] BUN 8.9 7.0 - 20.0 mg/dL [facility] CREATININE 0.69(L) 0.70 - 1.50 mg/dL [facility] CALCIUM 9.6 8.5 - 10.4 mg/dL [facility] SODIUM 138.9 137.0 - 145.0 mmol/L [facility] POTASSIUM 4.3 3.5 - 5.1 mmol/L [facility] CHLORIDE 110.7(H) 98.0 - 107.0 mmol/L [facility] CO2 20.9(L) 22.0 - 30.0 mmol/L [facility] EST GFR (MDRD) 99.2 [facility] Comment: Calculated GFR for the patient 18 and older:Normal Kidney Function: >/-90Mild Decreased GFR: 60 - 89Moderated Decreased GFR: 30 - 59Severe Decreased GFR: 15 - 29Kidney Failure: <15 (or dialysis)If the patient is , the calculated GFR should be multiplied by 1.21. Units of measure for GFR = mL/min/1.50e6Vyz GFR value is not valid for patients under 18 years of age. Please disregard. Blood VENOUS BLOOD SPECIMEN / Unknown 05/21/2024 11:31 AM EMERGENCY VEHICLE TECHNICIAN us Starr Toussaint APRN, CNP CHEMISTRY ORDERABL E Final Result [facility] [address] [address], * CHILD SPECIALIST PAP W/REFLEX APTIMA HPV IF ASCU ([facility]) (05/30/2022 2:16 PM EMERGENCY VEHICLE TECHNICIAN) Diagnosis: ([facility]) Comment [facility] 1 Comment: NEGATIVE FOR INTRAEPITHELIAL LESION OR MALIGNANCY. Specimen Adequacy: ([facility]) Comment [facility] 1 Comment: Satisfactory for evaluation. Endocervical and/or squamous metaplastic cells (endocervical component) are present. Clinician Provided ICD10: ([facility]) Comment [facility] 2 Comment: Z12.4 Performed by: Comment [facility] 1 Comment: Herber Garzon Sr, Principal Research Economist (ASCP) Cyto Comments ([facility]) . [facility] 1 [...] STRUCTURE / Unknown 05/30/2022 2:16 PM EMERGENCY VEHICLE TECHNICIAN 05/30/2022 11:00 PM EMERGENCY VEHICLE TECHNICIAN Comment:Pap Narrative [facility] 1 - 06/01/2022 3:09 PM EMERGENCY VEHICLE TECHNICIAN Performed at: - [facility] [address] [facility] [address], [place], [place] [id number] Full Stack Java Developer: Lizbeth Chambers MD, Phone: [phone] Performed at: - [facility] [address] [place] [id number] Full Stack Java Developer: Satnam Garcia MD, Phone: [phone] Specimen Comment: Source.............Cervix Specimen Comment: LMP / Prev Treat...None Specimen Comment: No. of containers..01 ThinPrep Vial Starr Toussaint APRN, CNP [facility] ORDERABLES Final Result Performing Organization Address [facility] de Phone Number [facility] 1 [facility] 2 * ACUTE HEPATITIS PANEL ([facility]) (05/30/2022 12:47 PM EMERGENCY VEHICLE TECHNICIAN) Hepatitis A IgM Antibody ([facility]) Negative Negative [facility] 1 Hepatitis B Surface Antigen Screen ([facility]) Negative Negative [facility] 1 Hepatitis B Core IgM Antibody ([facility]) Negative Negative [facility] 1 Hepatitis C Virus Antibody ([facility]) <0.1 0.0 - 0.9 s/co ratio [facility] 1 Blood BLOOD SPECIMEN / Unknown 05/30/2022 12:47 PM EMERGENCY VEHICLE TECHNICIAN 05/29/2022 11:00 PM EMERGENCY VEHICLE TECHNICIAN Comment:Blood Narrative [facility] 1 - 05/31/2022 10:06 PM EMERGENCY VEHICLE TECHNICIAN Performed at: - [facility] [address] [place], [place] [id number] Full Stack Java Developer: Elvis Barrios MD, Phone: [phone] Starr Toussaint APRN, CNP [facility] ORDERABLES Final Result [facility] 1 from Last 3 Months or Most Recently Relevant to Health Maintenance Additional Health Concerns Infection Onset Date Last Indicated C. difficile Rule-Out 11/13/2021 11/13/[address] [place] [address] [place] [address] [employer] [address] [place] [address] MED[place] [facility] Advance Directives For more information, please contact: [phone] * Full Code (Latest Code Status on File) Date Activated Date Inactivated Comments 11/13/2021 6:09 AM 11/13/2021 10:04 PM Question Answer Comments How was code status determined? Patient Care Teams Pitch Filler Relationship Specialty Start Date End Date Starr Toussaint APRN, SHREDDER OPERATOR [address] [facility] [place] [address] PCP - General Nurse Practitioner 06/28/23
--- OUTSIDE RECORDS SUMMARY | 2024-10-15 17:28 | XMS_ITS | Encounter Summary ---
Author Organization [facility] Address [address] [place] [address] Care Team Providers Care Java Tech Name Role Phone No Ref-Primary, Physician Primary Care Provider Umu Calderon NP Primary Care Provider [phone] No Ref-Primary, Physician Primary Care Provider Starr Toussaint Primary Care Provider + [phone] Naomi Hummel DRILL PRESS SET UP OPERATOR Unavailable [phone] Reason for Visit * Reason Onset Date Comments CD Outpatient 07/09/2013 loding screen Other Encounter Details Date Type Department Care Team ([facility] st Contact Info) Description 07/09/2013 Telephone [facility] Behavioral Health Intake [address] [place] [phone] Generic, Behavioral IntakeMD CD Outpatient (loding screen); Social History Tobacco Use Types Packs/Day Years Used Date Smoking Tobacco: Never Assessed PHQ-2 Answer Date Recorded PHQ-2 Score 2 02/08/2022 Adolescent Education Answer Date Record ed Getting School Help Needed Not on file 03/16 Comments Unknown Sex and Gender Information Value Date Recorded Sex Assigned at Not on file Legal Sex Female 3:06 PM HITTING COACH Gender Identity Not on file Sexual Orientation [...] reoccurring appts. For phase 2 with Natalia - D2. Please begin on 08/06/13 to allow for billing. Thanks! Светлана ING COACH * Telephone Encounter - Bethanie Zavaleta - 07/16/2013 8:41 AM CST Message copied by BETHANIE ZAVALETA on SunJul 16, 2013 8:41 AM ------ Message from: TIRSO HERNANDEZ Created: SunJul 15, 2013 7:23 PM Regarding: LP admit today LP admit today direct, into track Dolores Felipe and Natalia ING COACH * Telephone Encounter - Bethanie Zavaleta - 07/14/2013 10:51 AM CST 07-14-13 Arranged L+ admit for 07-15-13 @ 1330 with Client. Called front desk team member and sent pool message. fb ING COACH * Telephone Encounter - Raven Chin - 07/11/2013 11:53 AM CST Placed on community wait list. Raven Chin ING COACH * Telephone Encounter - Raven Chin - 07/11/2013 11:51 AM CST Message copied by RAVEN CHIN on SunJul 11, 2013 11:51 AM ------ Message from: Rod MEYER Created: SunJul 11, 2013 11:31 AM Per L+RN Dalila Gomez and self, patient is appropriate for L+. Patient can be placed on community waitlist ONLY WHEN FUNDING FROM [facility] HAS BEEN CONFIRMED. Patient was informed that they need to have 21-30 day supply of medications, needs to be sober and not at risk for withdrawal and was given business office phone number regarding OOP costs. Rahul Wood ING COACH * Telephone Encounter - Al Cramer - 07/10/2013 7:43 AM CST Per josh Gonzalez can give Verbal auth Ref sent for L+ review. ING COACH * Telephone Encounter - Hunter Jauregui - 07/09/2013 3:18 PM CST Ref from fozia ortayo gonzalez/project child [phone]. r25 sent for screening of lodging plus. Ref will resolve funding through , Pending at this time. rebecca ING COACH documented in this encounter Plan of Treatment Not on file documented as of this encounter Visit Diagnoses Not on filedocumented in this encounter Additional Health Concerns Infection Onset Date Last Indicated Resolved Time Rule Out COVID-19 04/04/2021 04/04/2021 04/04/2021 10:47 AM CDT Rule Out COVID-19 01/24/2022 01/24/2022 01/24/2022 6:16 AM CDT documented as of this encounter Care Teams Java Tech Relationship Specialty Start Date End Date No Ref-Primary, Physician PCP - General 07/28/13 04/04/17 Umu Calderon NP [facility] [address] [place] [address] PCP - General 04/05/17 01/29/18 No Ref-Primary, Physician PCP - General 05/22/18 04/03/21 Starr Toussaint PCP - General 04/04/21 Naomi Hummel NP [address] [place] [address] Assigned PCP 07/19/23 documented as of this encounter
--- OUTSIDE RECORDS SUMMARY | 2024-10-15 17:28 | XMS_ITS | Encounter Summary ---
Author Organization [facility] Address [address] [place] [address] Care Team Providers Care Broaching Machine Repairer Name Role Phone Starr Toussaint APRN, CNP Primary Care Prov ider Reason for Visit * Reason Comments Depression Anxiety Encounter Details Date Type Department Care Team (Late st Contact Info) Description 10/14/2024 1:00 PM CDT Virtual Visit [facility] [address] [facility] [address] [place] [phone] Starr Toussaint APRN, PRINTER MAINTAINER [address] 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 Patient gave verbal consent for telehealth encounter. We have used video communication for this visit We discussed our video communication tool ([employer] Video Client) and possible limitations of privacy related to this tool. Time service began: 12:59 PM Time service ended: 1:23 PM ASSESSMENT/PLAN Rosie was seen today for depression and anxiety. Diagnoses and all orders for this visit: MDD (major depressive disorder), recurrent episode, moderate (HCC) - escitalopram oxalate (LEXAPRO) 10 mg oral tablet; Take 3 tablets (30 mg) by mouth once daily. ANAM (generalized anxiety disorder) - escitalopram oxalate (LEXAPRO) 10 mg oral tablet; Take 3 tablets (30 mg) by mouth once daily. Panic attack - hydrOXYzine (ATARAX) 10 mg oral tablet; Take 1-3 tablets (10-30 mg) by mouth twice a day as needed (anxiety). Max dose of 100 mg per 24 hours. - escitalopram oxalate (LEXAPRO) 10 mg oral tablet; Take 3 tablets (30 mg) by mouth once daily. Social Determinants of Health: Depression, anxiety, stress, other mental health concerns Options for treatment and follow-up care were reviewed with the patient and/or guardian. Onofre Lan and/or guardian engaged in the decision making process and verbalized understanding of the options discussed and agreed with the final plan. RTC 1-2 months for follow-up. Today's care for complex conditions is part of an established longitudinal relationship. SUBJECTIVE HPI Onofre Lan is a 34 y.o. female who presents for telemedicine encounter today for follow-up of for depression, anxiety and panic attacks. She reports that she will have chest pain at times withthe panic attacks, but it resolves when her panic attacks resolve. They taking their medication as prescribed. Any side effects from the medication: No. Counseling: Yes. Patient confirmed problems with current treatment: having panic attacks . This treatment plan seems to be working poorly and is not controlling their symptoms. Symptoms still experienced by the patient include depressed mood, psychomotor agitation, fatigue, difficulty concentrating, panic attacks, bad dreams and hopelessness. She denies n/v, fever, chills or night sweats. Patient denies any suicidal thoughts or plan. Tobacco Use reports that she has been smoking cigarettes. She started smoking about 19 years ago. She has a 7.5 pack-year smoking history. She has never used smokeless tobacco. OBJECTIVE General: Alert, oriented. No acute distress. Not ill appearing. Speech is not pressured. No slurredspeech. HEENT: Atraumatic, normocephalic. Sclera and conjunctiva are clear. No rhinorrhea Neck: Normal ROM Lungs: Breathing comfortably on room air. Neuro: No facial droop. Psych: tearful and anxious. Skin: without obvious rash ASSESSMENT/PLAN-see above Starr Toussaint APRN, DAMASO documented in this encounter Plan of Treatment Not on file documented as of this encounter Visit Diagnoses Diagnosis MDD (major depressive disorder), recurrent episode, moderate (HCC)- Primary Major depressive disorder, recurrent episode, moderate ANAM (generalized anxiety disorder) Generalized anxiety disorder Panic attack Panic disorder without agoraphobia documented in this encounter Additional Health Concerns Infection Onset Date Last Indicated Resolved Time C. difficile Rule-Out 11/13/2021 11/13/2021 documented as of this encounter Care Teams Broaching Machine Repairer Relationship Specialty Start Date End Date Starr Toussaint APRN, PRINTER MAINTAINER [address] [place] [address] PCP - General Nurse Practitioner 06/28/23 documented as of this encounter
--- OUTSIDE RECORDS SUMMARY | 2024-10-15 17:28 | XMS_ITS | Clinical Summary ---
Author Organization [facility] Address [address] [place] [address] Care Team Providers Care Helminthology Teacher Name Role Phone Starr ToussaintAnitha Primary Care Provider + [phone] Naomi Hummel CUSTOMER STRATEGY MANAGER Unavailable [phone] Allergies Active Allergy Reactions Criticality Noted [...] Administration Dates Next Due COVID-19 MONOVALENT 12+ (Notizza) 05/30/2021 DT (PEDS <7y) 02/03/1998, 7,10/08/1995,08/17,07/20/1995 DTAP [...] on file Legal Sex Female 3:06 PM HAIRSPRING FABRICATION SUPERVISOR Gender Identity Not on file Sexual Orientation [...] 02/09/2022 4:23 PM CDT Jess Gonzalez APRN CONTRACT ACCOUNTANT LAB - BLOOD ORDER ROBIN Final Result [facility] [address] [address], [facility] [phone] * Hepatitis C Screen Reflex to HCV [...] for newborns, infants, and children. Jess Gonzalez GENDER STUDIES PROFESSOR CONTRACT ACCOUNTANT LAB - BLOOD ORDER ROBIN Final Result [facility]/Prot/Endo [address] [facility] [address] Building, [address] [phone] from Last 3 Months or Most Recently Relevant to Health Maintenance Insurance [facility] Advance Directives For more information, please contact: [phone] * Full Code (Latest Code Status on [...] continue PREVIOUSLY ORDERED code status Care Teams Helminthology Teacher Relationship Specialty Start Date End Date Starr Toussaint PCP - General 04/04/21 Naomi Hummel NP [address] [place] [address] Assigned PCP 07/19/23
--- OUTSIDE RECORDS SUMMARY | 2024-10-15 17:28 | XMS_ITS | Continuity of Care Document ---
Author Organization [facility] Address [address], [address] [place] [address] Phone Care Team Providers Care Head Of Store Operations Name Role Phone Susan FOREMAN, Devi Unavailable [...] Location Reason(s) For Visit Diagnoses Date Provider [facility], [address], [address], [place], [id number], tel:[phone] [address] [place] [address] No Information Susan Quinonez. [address] , [address], [place], [id number], [place]. tel:[phone] PELVIC EXAMINATION [facility], [address], [address], [place], [id number], [place] tel:[phone] [address] [place] [address] dysmenorrhea (chief complaint) Pelvic pain Susan Quinonez. [address] , [address], [place], [id number], [place]. tel:[phone] PELVIC EXAMINATION [facility], [address], [address], [place], [id number], [place] tel:[phone] [address] [place] [address] Annual Exam (chief complaint) Encounter for gynecological examination (general) (routine) without abnormal findingsEncounter for screening for depression Susan Quinonez. [address] , [address], [place], [id number], [place]. tel:[phone] PREV VISIT, EST, AGE 18-39 [facility], [address], [address], [place], [id number], [place] tel:[phone] [address] [place] [address] Annual Exam (chief complaint) Encounter for gynecological examination (general) (routine) without abnormal findings Susan Quinonez. [address] , [address], [place], [id number], [place]. tel:[phone] [facility], [address], [address], [place], [id number], [place] tel:[phone] [address] [place] [address] Nexplanon Removal (chief complaint) Nexplanon removal Susan Quinonez. [address] , [address], [place], [id number], [place]. tel:[phone] OFFICE/OUTPATI ENT VISIT, EST [facility], [address], [address], [place], [id number], [place] tel:[phone] [address] [place] [facility] Left ovarian pain, breast tenderness (chief complaint) Pelvic pain Susan Quinonez. [address], [address], [place], [id number], [place]. tel:[phone] PREV VISIT, EST, AGE 18-39 [facility], [address], [address], [place], [id number], [place] tel:[phone] [address] [place] [facility] Annual Exam (chief complaint) Encounter for gynecological examination (general) (routine) without abnormal findings Susan Quinonez. [address], [address], [place], [id number], [place]. tel:[phone] OFFICE/OUTPATI ENT VISIT, EST [facility], [address], [address], [place], [id number], [place] tel:[phone] [address] [place] [address] Nexplanon removal and reinsertion (chief complaint) Encounter for removal and reinsertion of Nexplanon Susan Quinonez. [address] , [address], [place], [id number], [place]. tel:[phone] PREV VISIT, NEW, AGE 18-39 [facility], [address], [address], [place], [id number], [place] tel:[phone] [address] [place] [address] Annual Exam (chief complaint) Encounter for gynecological examination (general) (routine) without abnormal findings Giancarlo Gordon. [address] , [address], [place], [id number], [place]. tel:[phone] Family History Family Member Type Diagnosis Age At Onset Sister Problem Fibroids Sister Problem Ovarian cyst Maternal grandmother Problem Breast cancer Payers Payer name Insurance type Covered constitution party ID Polo zuñiga(te Alexandra MD [id number] Social History Type Description Quantity Date Captured Comments Alcohol Use Details Unknown Caffeine Use Details Unknown Tobacco Use Status No Information Smoking Status No Information Sex Female Sexual Orientation Straight or heterosexual May Gender Identity Female Chief Complaint And Reason For Visit No Information Plan Of Treatment Date Type Action Status Appointment Opal Lan BOOKED Appointment Opal Lan BOOKED History Of Present Illness Encounter Date Complaint [...] patient does drink alcohol. Additional information: no obstetrics gyn physician concernsperiods regularusing withdrawal for prevention and declines anything additionalwith group home boyfriend and anticipating she'll get engaged soonfinished [...] getting engaged soon. Nexplanon Removal 32yo with Nexdoris dill here for removal due to due effects. [...] light period with Nexplanon and [facility] [employer] [facility] Nexplanon removal [...] armand No Information Assessments Type Assessment Date No Information
== END 2024-10-15 20:00 | disposition left against medical advice (07) ==
LOC: ED 17:26
PROVIDERS: Emergency Provider Family Medicine; PCP Nurse Practitioner Family
DX: R07.9 Chest pain, unspecified (principal); R06.02 Shortness of breath; Z53.21 Procedure and treatment not carried out due to patient leaving prior to being seen by health care provider
CPT/HCPCS: 36415; 71045; 80053; 82803; 83690; 83880; 84484; 85025; 85379; 85651; 86140; 99283

== ENCOUNTER 2025-04-08 19:17 | Emergency (ER) | payer MEDICAID, SELFPAY ==
--- OUTSIDE RECORDS SUMMARY | 2025-01-29 03:15 | XMS_ITS | Continuity of Care Document ---
Author Organization [facility] Address [address], [address] [place] [address] Phone Care Team Providers Care Mine Promotor Name Role Phone Susan FOREMAN, Devi Unavailable Unavailable Allergies, Adverse Reactions, Alerts Substance Reaction Status Criticality No Known Allergies Active No Inform ation Medications Medication Instructions Dosage Effective Dates (start - stop) Status Comments ANTHONY (28) 3 mg-0.02 mg tablet take 1 tablet by oral route every day 1.00 tablet - Active Slynd 4 mg (28) tablet take 1 tablet by oral route every day at the same time each day 4 MG - Active LO LOESTRIN FE 1-10 TABLET TAKE 1 TABLET BY MOUTH EVERY DAY - Active Procedures Procedure Date PELVIC EXAMINATION PREV VISIT, EST, AGE 18-39 BRIEF EMOTIONAL/BEHAV ASSMT PELVIC EXAMINATION OFFICE/OUTPATIENT VISIT, EST PELVIC EXAMINATION BRIEF EMOTIONAL/BEHAV ASSMT BRIEF EMOTIONAL/BEHAV ASSMT PREV VISIT, EST, AGE 18-39 PREV VISIT, EST, AGE 18-39 REMOVE DRUG IMPLANT DEVICE OFFICE/OUTPATIENT VISIT, EST PREV VISIT, EST, AGE 18-39 REMOVE/INSERT DRUG IMPLANT OFFICE/OUTPATIENT VISIT, EST PREV VISIT, ADRIAN, AGE 18-39 Advance Directives Directive Yes / No Effective Date File Name No Information Encounters Encounter Description Practice Location Reason(s) For Visit Diagnoses Date Provider [facility], [address], [address], [place], [id number], [place] tel:[phone] 56 [place] [address] No Information Susan Quinonez. [address] , [address], [place], [id number], [place]. tel:[phone] PELVIC EXAMINATION [facility], [address], [address], [place], [id number], [place] tel:[phone] 56 [place] [facility] Annual Exam (chief complaint) Encounter for gynecological examination (general) (routine) without abnormal findingsEncounter for screening examination for other mental health and behavioral disordersEncounter for screening for depression Susan Quinonez. [address] , [address], [place], [id number], [place]. tel:[phone] [facility], [address], [address], [place], [id number], [place] tel:[phone] 56 [place] [facility] No Information Susan Quinonez. [address] , [address], [place], [id number], [place]. tel:[phone] PELVIC EXAMINATION [facility], [address], [address], [place], [id number], [place] tel:[phone] 56 [place] [facility] dysmenorrhea (chief complaint) Pelvic pain Susan Quinonez. [address] , [address], [place], [id number], [place]. tel:[phone] PELVIC EXAMINATION [facility], [address], [address], [place], [id number], [place] tel:[phone] 56 [place] [facility] Annual Exam (chief complaint) Encounter for gynecological examination (general) (routine) without abnormal findingsEncounter for screening for depression Susan Quinonez. [address], [address], [place], [id number], [place]. tel:[phone] PREV VISIT, EST, AGE 18-39 [facility], [address], [address], [place], [id number], [place] tel:[phone] 56 [place] [facility] Annual Exam (chief complaint) Encounter for gynecological examination (general) (routine) without abnormal findings Susan Quinonez. [address] , [address], [place], [id number], [place]. tel:[phone] [facility], [address], [address], [place], [id number], [place] tel:[phone] 56 [place] [facility] Nexplanon Removal (chief complaint) Nexplanon removal Susan Quinonez. [address] , [address], [place], [id number], [place]. tel:[phone] OFFICE/OUTPATI ENT VISIT, EST [facility], [address], [address], [place], [id number], [place] tel:[phone] 56 [place] [facility] Left ovarian pain, breast tenderness (chief complaint) Pelvic pain Susan Quinonez. [address] , [address], [place], [id number], [place]. tel:[phone] PREV VISIT, EST, AGE 18-39 [facility], [address], [address], [place], [id number], [place] tel:[phone] 56 [place] [facility] Annual Exam (chief complaint) Encounter for gynecological examination (general) (routine) without abnormal findings Susan Quinonez. [address], [address], [place], [id number], [place]. tel:[phone] OFFICE/OUTPATI ENT VISIT, EST [facility], [address], [address], [place], [id number], [place] tel:[phone] 56 [place] [facility] Nexplanon removal and reinsertion (chief complaint) Encounter for removal and reinsertion of Nexplanon Susan Devi. [address] , [address], [place], [id number], [place]. tel:[phone] PREV VISIT, NEW, AGE 18-39 [facility], [address], [address], [place], [id number], [place] tel:[phone] 56 [place] [address] Annual Exam (chief complaint) Encounter for gynecological examination (general) (routine) without abnormal findings Giancarlo Evan. [address] , [address], [place], [id number], [place]. tel:[phone] Family History Family Member Type Diagnosis Age At Onset Sister Problem Fibroids Sister Problem Ovarian cyst Maternal grandmother Problem Breast cancer Payers Payer name Insurance type Covered democrat ID Authoriza tiben(s) Nasrin FOREMAN [id number] Social History Type Description Quantity Date Captured Comments Sex Female Smoking Status No Information Sexual Orientation Straight or heterosexual May Gender Identity Female Chief Complaint And Reason For Visit No Information Plan Of Treatment Date Type Action Status Goal Unhealthy drug use screening . Due on due Goal Hepatitis C screening. Due o n due Goal Pap/HPV testing. Due on due Goal Tdap. Due on due Goal PAP. Due on due Goal Depression screening. Due on due Goal Diabetes Screening. Due on J due Goal Tobacco screening. Due on due Goal HPV, high+low-risk. Due on due Goal HIV screen. Due on due Goal Pap/HPV testing. Due on due Goal HIV screen. Due on due Goal Tobacco screening. Due on due Goal PAP. Due on due Goal Tdap. Due on due Goal HPV, high+low-risk. Due on due Goal Diabetes Screening. Due on due Goal Unhealthy drug use screening . Due on due Goal Hepatitis C screening. Due o n due Goal Depression screening. Due on due Appointment Opal Lan BOOKED History Of Present Illness Encounter Date Complaint History Of Prese nt Illness Annual Exam The patient stat es using oral contraceptive for control. Negative for: breast discharge and breast lump(s). Positive for: breast pain. The patient does drink alcohol. Additional information: started on Lo Loestrin in august for dysmenorrhea and mittelschmerz. Pain improved but now having irregular bleeding, mid cycle. Also impacting mood, worsening anxiety and depression. Not interested in IUD.Also having ongoing breast tendernessNo ROSS. dysmenorrhea Last menstrual p eriod was on [...] patient does drink alcohol. Additional information: no manager automotive concernsperiods regularusing withdrawal for prevention and declines anything additionalwith director long term care boyfriend and anticipating she'll get engaged soonfinished [...] and [facility] [employer] [facility] Nexplanon removal [...] drink alcohol. Instructions Date Instruction Additional Infor mation No Information Assessments Type Assessment Date No Information
--- OUTSIDE RECORDS SUMMARY | 2025-01-29 03:15 | XMS_ITS | Continuity of Care Document ---
Author Organization [facility] Address [address], [address] [place] [address] Phone Care Team Providers Care Maintenance Operator Name Role Phone Susan FOREMAN, Devi Unavailable [...] Location Reason(s) For Visit Diagnoses Date Provider [facility], [address], [address], [place], [id number], [place] tel:[phone] 56 [place] [address] No Information Susan Quinonez. [address] , [address], [place], [id number], [place]. tel:[phone] PELVIC EXAMINATION [facility], [address], [address], [place], [id number], [place] tel:[phone] 56 [place] [facility] Annual Exam (chief complaint) Encounter for gynecological examination (general) (routine) without abnormal findingsEncounter for screening examination for other mental health and behavioral disordersEncounter for screening for depression Susan Quinonez. [address], [place], [id number], [place]. tel:[phone] [facility], [address], [address], [place], [id number], [place] tel:[phone] 56 [place] [address] No Information Susan Quinonez. [address], [place], [id number], [place]. tel:[phone] PELVIC EXAMINATION [facility], [address], [address], [place], [id number], [place] tel:[phone] 56 [place] [facility] dysmenorrhea (chief complaint) Pelvic pain Susan Quinonez. [address] , [address], [place], [id number], [place]. tel:[phone] PELVIC EXAMINATION [facility], [address], [address], [place], [id number], [place] tel:[phone] 56 [place] [facility] Annual Exam (chief complaint) Encounter for gynecological examination (general) (routine) without abnormal findingsEncounter for screening for depression Susan Quinonez. [address], [address], [place], [id number], [place]. tel:[phone] PREV VISIT, EST, AGE 18-39 [facility], [address], [address], [place], [id number], [place] tel:[phone] 56 [place] [facility] Annual Exam (chief complaint) Encounter for gynecological examination (general) (routine) without abnormal findings Susan Quinonez. [address], [place], [id number], [place]. tel:[phone] [facility], [address], [address], [place], [id number], [place] tel:[phone] 56 [place] [facility] Nexplanon Removal (chief complaint) Nexplanon removal Susan Quinonez. [address], [place], [id number], [place]. tel:[phone] OFFICE/OUTPATI ENT VISIT, EST [facility], [address], [address], [place], [id number], [place] tel:[phone] 56 [place] [facility] Left ovarian pain, breast tenderness (chief complaint) Pelvic pain Susan Quinonez. [address] , [address], [place], [id number], [place]. tel:[phone] PREV VISIT, EST, AGE 18-39 [facility], [address], [address], [place], [id number], [place] tel:[phone] 56 [place] [facility] Annual Exam (chief complaint) Encounter for gynecological examination (general) (routine) without abnormal findings Susan Quinonez. [address], [address], [place], [id number], [place]. tel:[phone] OFFICE/OUTPATI ENT VISIT, EST [facility], [address], [address], [place], [id number], [place] tel:[phone] 56 [place] [address] Nexplanon removal and reinsertion (chief complaint) Encounter for removal and reinsertion of Nexplanon Susan Devi. [address] , [address], [place], [id number], [place]. tel:[phone] PREV VISIT, NEW, AGE 18-39 [facility], [address], [address], [place], [id number], [place] tel:[phone] 56 [place] [address] Annual Exam (chief complaint) Encounter for gynecological examination (general) (routine) without abnormal findings Mondragon Evan. [address], [place], [id number], [place]. tel:[phone] Family History Family Member Type Diagnosis Age At Onset Maternal grandmother Problem Breast cancer Sister Problem Ovarian cyst Sister Problem Fibroids Payers Payer name Insurance type Covered libertarian ID Authoriza tiben(s) Nasrin FOREMAN [id number] Social History Type Description Quantity Date Captured Comments Sex Female Smoking Status No Information Sexual Orientation Straight or heterosexual May Gender Identity Female Chief Complaint And Reason For Visit No Information Plan Of Treatment Date Type Action Status Goal HIV screen. Due on due Goal HPV, high+low-risk. Due on due Goal Tobacco screening. Due on due Goal Diabetes Screening. Due on due Goal Depression screening. Due on due Goal PAP. Due on due Goal Tdap. Due on due Goal Pap/HPV testing. Due on due Goal Hepatitis C screening. Due o n due Goal Unhealthy drug use screening . Due on due Goal Depression screening. Due on due Goal Hepatitis C screening. Due o n due Goal Unhealthy drug use screening . Due on due Goal Diabetes Screening. Due on due Goal HPV, high+low-risk. Due on due Goal Tdap. Due on due Goal PAP. Due on due Goal Tobacco screening. Due on Ne due Goal HIV screen. Due on due Goal Pap/HPV testing. Due on due Appointment Opal Lan BOOKED [...] patient does drink alcohol. 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 Nexplanon removal and [...]
--- OUTSIDE RECORDS SUMMARY | 2025-03-04 15:10 | XMS_ITS | Encounter Summary ---
Author Organization [facility] Address [address] [place] [address] Care Team Providers Care E Learning Coordinator Name Role Phone Starr Toussaint APRN, CNP Primary Care Prov ider Reason for Visit * Reason Comments Skin infection Encounter Details Date Type Department Care Team (Late st Contact Info) Description 03/04/2025 3:10 PM CDT Virtual Visit [facility] [address] [place] [id number] Starr Toussaint APRN, TOOL MACHINE SET UP OPERATOR [address] [facility] 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 Patient gave verbal consent for telehealth encounter. We have used video communication for this visit We discussed our video communication tool ([employer]) and possible limitations of privacy related to this tool. Time service began: 3:11 PM Time service ended: 3:27 PM ASSESSMENT/PLAN Diagnoses and all orders for this visit: Hidradenitis suppurativa - doxycycline hyclate (VIBRAMYCIN) 100 mg oral tablet; Take 1 tablet (100 mg) by mouth twice a day. Social Determinants of Health: No concerns identified today Options for treatment and follow-up care were reviewed with the patient and/or guardian. Onofre Lan and/or guardian engaged in the decision making process and verbalized understanding of the options discussed and agreed with the final plan. RTC PRN for f/u. Today's care for complex conditions is part of an established longitudinal relationship. SUBJECTIVE HPI Onofre Lan is a 34 y.o. female who presents for telemedicine encounter today for concerns ofskin lesion on right side of the groin (picture in media scan). The lesion is round, raised and painful. She has noted that it has started to drain. It is similar to previous lesions that she has hadfor HDS. She did report that since she has started soaking it there has been some improvement in the pain, but it still continues to drain purulent drainage. She denies fever, chills or increasing redness. Tobacco Use reports that she has been [...] room air. Neuro: No facial droop. Psych: Affect full and bright. Normal thought content. Skin: without obvious rash ASSESSMENT/PLAN-see above Starr Toussaint APRN, DAMASO documented in this encounter Plan of Treatment Not on file documented as of this encounter Visit Diagnoses Diagnosis Hidradenitis suppurativa- Primary Hidradenitis documented in this encounter Additional Health Concerns Infection Onset Date Last Indicated Resolved Time C. difficile Rule-Out 11/13/2021 11/13/2021 documented as of this encounter Care Teams E Learning Coordinator Relationship Specialty Start Date End Date Starr Toussaint, DRIVER'S EDUCATION INSTRUCTOR, TOOL MACHINE SET UP OPERATOR [address] [facility] [place] [address] PCP - General Nurse Practitioner 06/28/23 documented as of this encounter
--- OUTSIDE RECORDS SUMMARY | 2025-04-08 19:19 | XMS_ITS | Clinical Summary ---
Author Organization [facility] Address [address] [place] [address] Care Team Providers Care Para Educator Name Role Phone Starr Toussaint APRN, TIN CONTAINER STRAIGHTENER Primary Care Prov ider Allergies Active Allergy [...] Active Blood-Glucose Sensor (FREESTYLE DORIS 3 SENSOR) deviceIndicatio ns:Morbid obesity (HCC),Elevated glucose level Use to monitor glucose per director energy instructions. Apply new sensor every 14 days. 5 each 1 4 Active albuterol HFA (PROVENTIL;VENT JATINDER HFA) 90 mcg/actuation Inhl inhalerIndicati ons:Wheezing,Vi ral illness Inhale 2 puffs every 4 (four) hours as needed. 18 g 3 4 Active buPROPion 75 mg oral tabletIndicatio ns:MDD (major depressive disorder), recurrent episode, moderate (HCC),ANAM (generalized anxiety disorder) TAKE 1 TABLET BY MOUTH TWICE A DAY 180 tablet 2 5 Active hydrOXYzine (ATARAX) 10 mg oral tabletIndicatio ns:Panic attack Take 1-3 tablets (10-30 mg) by mouth twice a day as needed (anxiety). Max dose of 100 mg per 24 hours. 60 tablet 1 5 Active escitalopram oxalate (LEXAPRO) 10 mg oral tabletIndicatio ns:MDD (major depressive disorder), recurrent episode, moderate (HCC),ANAM (generalized anxiety disorder),Panic attack Take 3 tablets (30 mg) by mouth once daily. 270 tablet 5 Active VITAMIN D2 1,250 mcg (50,000 unit) oral capsuleIndicati ons:Vitamin D deficiency TAKE 1 CAPSULE BY MOUTH EVERY SEVEN DAYS 4 capsule 5 Active brexpiprazole (REXULTI) 0.25 mg oral TabIndications: MDD (major depressive disorder), recurrent episode, moderate (HCC),ANAM (generalized anxiety disorder),Mood disorder Take 0.25 mg by mouth once daily. 30 tablet 3 5 Active brexpiprazole (REXULTI) 0.5 mg oral TabIndications: Mood disorder,MDD (major depressive disorder), recurrent episode, moderate (HCC),ANAM (generalized anxiety disorder),Panic attack Take 1 tablet (0.5 mg) by mouth once daily. 30 tablet 1 5 Active doxycycline hyclate (VIBRAMYCIN) 100 mg oral tabletIndicatio ns:Hidradenitis suppurativa Take 1 tablet (100 mg) by mouth twice a day. 28 tablet 1 5 Active Active Problems Problem Noted Date Diagnosed Date Hepatitis B, chronic 05/16/2022 Chronic bilateral low back pain without sciatica 01/03/2022 ANAM (generalized anxiety disorder) 07/28/2019 Assessment & Plan (01/01/2025 4:02 PM CDT): Orders: brexpiprazole (REXULTI) 0.25 mg oral Tab; Take 0.25 mg by mouth once daily. Nexplanon insertion 07/30/2018 PTSD (post-traumatic stress disorder) 2017 MDD (major depressive disord er), recurrent episode, moderate 2017 Assessment & Plan (01/01/2025 4:02 PM CDT): Orders: brexpiprazole (REXULTI) 0.25 mg oral Tab; Take 0.25 mg by mouth once daily. Binge eating 2017 Hydradenitis 02/23/2015 Chemical dependency 07/16/2013 Asthma 02/12/2006 Overview (10/01/2020): Overview: LW Modifier: Likely EIA LW Onset: [id number] Problem list name updated by automated process. Provider to review LW Modifier: Likely EIA LW Onset: [id number] ; Asthma NOS Problem list name updated [...] (11/21/2021): Last Assessment & Plan: Living at [employer] [facility]. Starting outpatient treatment through [facility] today. Recently relapsed on Meth yesterday, IV [...] obtain ROLDAN upon admit and fax to [facility] to facilitate dose verification. Please contact Adelia Mathur [phone] at the time of hospital admission. If she is on a split dose, discharge to outpatient MAT can be complicated. Pt has take outs Sunday and Sunday PT instructed to take dose prior to csection. Methadone maintenance is confidential. (Pt's partner/fob is aware) Methadone maintenance from [facility] 150 mg. Please obtain ROLDAN upon admit and fax to [facility] to facilitate dose verification. Please contact Adelia Mathur [phone] at the time of hospital admission. If [...] Encounters Date Type Department Care Team Description 03/04/2025 3:10 PM CDT Virtual Visit [facility] [address] [facility] [address] [place] [address] Starr Toussaint, BOOT AND SHOE REPAIRMAN, TIN CONTAINER STRAIGHTENER Hidradenitis suppurativa (Primary Dx) 01/16/2025 11:30 AM CDT Virtual Visit [facility] [address] [facility] [address] [place] [address] Starr Toussaint, BOOT AND SHOE REPAIRMAN, TIN CONTAINER STRAIGHTENER Mood disorder (HCC) (Primary Dx); MDD (major depressive disorder), recurrent episode, moderate (HCC); ANAM (generalized anxiety disorder); Chemical dependency (HCC); Panic attack from Last 3 Months Immunizations Immunization Administration Dates Next Due DTP 02/03/1998, 7,10/18/1996,10/07,08/17/1995,07/20/1995 DTaP (Daptacel) 02/03/1998, 7,10/08/1995,08/17,07/20/1995 DTaP (Infanrix) 02/03/1998, 7,10/18/1996,10/07,08/17/1995,07/20/1995 HIB PRP-T 08/17/1995 HPV 9-VALENT 10/15/2018 HPV Quadrivalent 11/28/2013,07/22/2007 Hep A Adult 11/28/2013 Hep A Pediatric 07/22/2007 Hep B Adult 03/20/1997, 7,08/17/1995,07/20 Hep B Immune By Titer 10/21/1996 Hep B Pediatric 03/20/1997,10/21/1996 Influenza (Fluzone 2010-) 03/22/2011 Influenza (Fluzone MDV 2012- 14) 6-35 Mos 03/29/2012,05/22/2006 Influenza PF (2014-15) 03/29/2012,03/22/2011, Influenza recombinant (FluBl ok Quadrivalent PF) 05/30/2021,04/02/2019,06/06/2018,04/09,04/16/2013,03/29/2012,03/22/2011 ,05/22/2006 Influenza split virus (Fluzo ne Quadrivalent PF) 05/30/2021,04/02/2019,06/06/2018,04/09,04/16/2013,03/29/2012,03/22/2011 ,05/22/2006 Influenza split virus quadrivalent 07/05,04/02/2019,06/06/2018,04/09,03/22/2011 MMR 02/03/1998,07/20/1995 Meningococcal MCV4O 07/22/2007 Meningococcal MCV4P 07/22/2007 Meningococcal MPSV4 07/22/2007 Pfizer 12+ Yrs Monovalent CO VID Vaccine (purple cap) 05/30/2021 Pneumococcal Polysaccharide PPSV23 11/03/2011 Polio IPV 02/03/1998, 7,08/17/1995,07/20 Polio OPV 02/03/1998,199 7,08/17/1995,07/20 SPIKEVAX (Moderna) 12+ Yrs M onovalent COVID Vaccine (registered respiratory therapist) 11/12/2020,10/15/2020 Tdap 03/28/2016,11/26/2012,03/02/2005 Varicella 07/22/2007,10/08/1995 Family History [...] Answer Date Recorded PHQ2 Total 0 05/21/2024 [facility] of Occupat ional Health - Occupational Stress [...] Comments Blood Pressure 120/80 05/21/2024 10:48 AM DYNAMITE CARTRIDGE CRIMPER Pulse 83 05/21/2024 10:48 AM DYNAMITE CARTRIDGE CRIMPER Temperature 36.6 C (97.9 F) 05/21/2024 10:48 AM DYNAMITE CARTRIDGE CRIMPER Respiratory Rate 18 11/13/2021 2:52 PM CDT Oxygen Saturation 98% 05/21/2024 10: 48 AM DYNAMITE CARTRIDGE CRIMPER Inhaled Oxygen Concentration - - Weight 125.1 kg (275 lb 12.8 oz) 2023 10:48 AM DYNAMITE CARTRIDGE CRIMPER Height 180.3 cm (5' 11) 05/21/2024 10: 48 AM DYNAMITE CARTRIDGE CRIMPER Body Mass Index 38.47 05/21/2024 10:48 AM DYNAMITE CARTRIDGE CRIMPER Plan of Treatment Health Maintenance Due Date Last Done Comments Eye Exam 1992 Pneumococcal Vaccine (2 of 2 - PCV) 11/02/2012 11/03/2011 HgbA1C 11/18/2024 05/21/2024, 08/23, 05/30/2022, Additional history exists COVID-19 Vaccine ( season) 2025 05/30/2021, 11/12/2020, 10/15/2020 Influenza Vaccine (#1) 2025 , 05/30/2021, 07/05/2020, Additional history exists Anxiety Follow-Up (ANAM-7) 05/21/2025 05/21/2024 Creatinine 05/21/2025 05/21/2024, 08/23, 05/30/2022, Additional history exists Depression Follow-Up (PHQ-9) 05/21/2025 05/21/2024 Lipid Screening 05/21/2025 05/21/2024, 1211/2021, 02/07/2021, Additional history exists Microalbumin Q12 Month 05/21/2025 05/21/2024 Pap Smear 05/30/2025 05/30/2022, 08/06/2018 Adult Tetanus Booster 03/28/2026 03/28/2016 , 11/26/2012, 03/02/2005 RSV Vaccines (1 - 1-dose 75+ series) 2067 HPV Vaccine Completed 10/15/2018, /0 11/2013, 07/22/2007 Hepatitis C Screening Completed 05/30/2022 , 07/20/2020, 07/11/2018 Meningococcal B Vaccine Aged Out No l onger eligible based on patient's age to complete this topic Procedures Procedure Name Priority Date/Time Associated Diagnosis Comments MICROALBUMIN URINE (BFM / STH ONLY) Routine 05/21/2024 11:31 AM DYNAMITE CARTRIDGE CRIMPER Type 2 diabetes mellitus with hyperglycemia, without long-term current use of insulin (HCC) BASIC METAB PROFILE Routine 05/21/2024 1 1:31 AM DYNAMITE CARTRIDGE CRIMPER Type 2 diabetes mellitus with hyperglycemia, without long-term current use of insulin (HCC) Morbid obesity (HCC) LIPID PROFILE CASCADE Routine 05/21/2024 11:31 AM DYNAMITE CARTRIDGE CRIMPER Type 2 diabetes mellitus with hyperglycemia, without long-term current use of insulin (HCC) Morbid obesity (HCC) Screening for cholesterol level HGB A1C (GLYCO HGB) (BFM / STH USE ONLY) Routine 05/21/2024 11:31 AM DYNAMITE CARTRIDGE CRIMPER Type 2 diabetes mellitus with hyperglycemia, without long-term current use of insulin (HCC) Morbid obesity (HCC) MANAGER TALENT ACQUISITION PAP W/REFLEX APTIMA HPV IF ASCU ([facility]) Routine 05/30/2022 2:16 PM DYNAMITE CARTRIDGE CRIMPER Screening for cervical cancer ACUTE HEPATITIS PANEL ([facility]) Routine 05/30/2022 12:47 PM DYNAMITE CARTRIDGE CRIMPER Screening for condition Abnormal laboratory test result from Last 3 Months or Most Recently Relevant to Health Maintenance Results * MICROALBUMIN URINE (BFM / STH ONLY) (05/21/2024 11:31 AM DYNAMITE CARTRIDGE CRIMPER) Pathologist [facility] MICROALBULIN, URINE OP 7.8 0.0 - 30.0 mg/g [facility] Comment:The microalbumin res ult reported is a urine albumin-creatinine ratio. Urine URINE SPECIMEN OBTAINED BY CLEAN CATCH PROCEDURE / Unknown 05/21/2024 11:31 AM DYNAMITE CARTRIDGE CRIMPER Narrative [facility] - 05/21/2024 4:16 PM DYNAMITE CARTRIDGE CRIMPER Urine Albumin is <0.6 mg/dL. The Albumin/Creatinine ratio is invalid us Starr Toussaint APRN, TIN CONTAINER STRAIGHTENER CHEMISTRY ORDERABL E Final Result [facility] [address] [address], [place] [phone] * (ABNORMAL) LIPID PROFILE CASCADE (05/21/2024 11:31 AM DYNAMITE CARTRIDGE CRIMPER) [facility] CHOLESTEROL 187 0 - 200 mg/dL [facility] NON-HDL CHOLESTEROL 140.7(H) 0.0 - 130.0 mg/dL [facility] TRIGLYCERIDES 178.0 0.0 - 200.0 mg/dL [facility] HDL 46.3 40.0 - 60.0 mg/dL [facility] LDL 105.0 0.0 - 130.0 [facility] CHOL HDL RATIO 4.0(H) 0.0 - 4.0 [facility] Blood VENOUS BLOOD SPECIMEN / Unknown 05/21/2024 11:31 AM DYNAMITE CARTRIDGE CRIMPER us Starr Toussaint APRN, DAMASO CHEMISTRY ORDERABL E Final Result Performing Organization Address City/[facility]/ZIP Co de Phone Number [address] [address], * HGB A1C (GLYCO HGB) (BFM / STH USE ONLY) (05/21/2024 11:31 AM DYNAMITE CARTRIDGE CRIMPER) [facility] HGBA1C OP 5.0 4.0 - 5.6 % [facility] Blood VENOUS BLOOD SPECIMEN / Unknown 05/21/2024 11:31 AM DYNAMITE CARTRIDGE CRIMPER Starr Toussaint APRN, DAMASO CHEMISTRY ORDERABL E Final Result Performing Organization Address [facility]/ZIP Co de Phone Number [address] [address], [place] [phone] * (ABNORMAL) BASIC METAB PROFILE (05/21/2024 11:31 AM DYNAMITE CARTRIDGE CRIMPER) [facility] GLUCOSE CASUAL OP 87 74 - 106 mg/dL [facility] BUN 8.9 7.0 - 20.0 mg/dL [facility] CREATININE 0.69(L) 0.70 - 1.50 mg/dL [facility] CALCIUM 9.6 8.5 - 10.4 mg/dL [facility] SODIUM 138.9 137.0 - 145.0 mmol/L [facility] POTASSIUM 4.3 3.5 - 5.1 mmol/L [facility] CHLORIDE 110.7(H) 98.0 - 107.0 mmol/L [facility] CO2 20.9(L) 22.0 - 30.0 mmol/L [facility] EST GFR (MDRD) 99.2 [facility] Comment: Calculated GFR for the patient 18 and older:Normal Kidney Function: >/-90Mild Decreased GFR: 60 - 89Moderated Decreased GFR: 30 - 59Severe Decreased GFR: 15 - 29Kidney Failure: <15 (or dialysis)If the patient is , the calculated GFR should be multiplied by 1.21. Units of measure for GFR = mL/min/1.59i7Dch GFR value is not valid for patients under 18 years of age. Please disregard. Blood VENOUS BLOOD SPECIMEN / Unknown 05/21/2024 11:31 AM DYNAMITE CARTRIDGE CRIMPER Starr Toussaint APRN, TIN CONTAINER STRAIGHTENER CHEMISTRY ORDERABL E Final Result [facility] [address] [address], * MANAGER TALENT ACQUISITION PAP W/REFLEX APTIMA HPV IF ASCU ([facility]) (05/30/2022 2:16 PM DYNAMITE CARTRIDGE CRIMPER) Diagnosis: ([facility]) Comment [facility] 1 Comment: NEGATIVE FOR INTRAEPITHELIAL LESION OR MALIGNANCY. Specimen Adequacy: ([facility]) Comment [facility] 1 Comment: Satisfactory for evaluation. Endocervical and/or squamous metaplastic cells (endocervical component) are present. Clinician Provided ICD10: ([facility]) Comment [facility] 2 Comment: Z12.4 Performed by: Comment [facility] 1 Comment: Herber Garzon Sr, Prepress Proofer (ASCP) Cyto Comments ([facility]) . [facility] 1 [...] UTERI STRUCTURE / Unknown 05/30/2022 2:16 PM DYNAMITE CARTRIDGE CRIMPER 05/30/2022 11:00 PM DYNAMITE CARTRIDGE CRIMPER Comment:Pap Narrative [facility] 1 - 06/01/2022 3:09 PM DYNAMITE CARTRIDGE CRIMPER [facility] [address] [facility] [address], [place] [id number] Order Picker: Lizbeth Chambers MD, Phone: [phone] Performed at: - Lab[address] [id number] Order Picker: Satnam Garcia MD, Phone: [phone] Specimen Comment: Source.............Cervix Specimen Comment: LMP / Prev Treat...None Specimen Comment: No. of containers..01 ThinPrep Vial Starr Toussaint APRN, TIN CONTAINER STRAIGHTENER [facility] ORDERABLES Final Result [facility] 1 [facility] 2 * ACUTE HEPATITIS PANEL ([facility]) (05/30/2022 12:47 PM DYNAMITE CARTRIDGE CRIMPER) Hepatitis A IgM Antibody ([facility]) Negative Negative [facility] 1 Hepatitis B Surface Antigen Screen ([facility]) Negative Negative [facility] 1 Hepatitis B Core IgM Antibody ([facility]) Negative Negative [facility] 1 Hepatitis C Virus Antibody ([facility]) <0.1 0.0 - 0.9 s/co ratio [facility] 1 Blood BLOOD SPECIMEN / Unknown 05/30/2022 12:47 PM DYNAMITE CARTRIDGE CRIMPER 05/29/2022 11:00 PM DYNAMITE CARTRIDGE CRIMPER Comment:Blood Narrative [facility] 1 - 05/31/2022 10:06 PM DYNAMITE CARTRIDGE CRIMPER [facility] - [facility] [address] [place], [place] [id number] Order Picker: Elvis Barrios MD, Phone: [phone] Starr Toussaint APRN, TIN CONTAINER STRAIGHTENER [facility] ORDERABLES Final Result [facility] 1 from Last 3 Months or Most Recently Relevant to Health Maintenance Additional Health Concerns Infection Onset Date Last Indicated C. difficile Rule-Out 11/13/2021 11/13/2021 Insurance [facility] Advance Directives For more information, please contact: [phone] * Full Code (Latest Code Status on File) Date Activated Date Inactivated Comments 11/13/2021 6:09 AM 11/13/2021 10:04 PM Question Answer Comments How was code status determined? Patient Care Teams Para Educator Relationship Specialty Start Date End Date Starr Toussaint, BOOT AND SHOE REPAIRMAN, TIN CONTAINER STRAIGHTENER [address] [facility] [place] [address] PCP - General Nurse Practitioner 06/28/23
--- OUTSIDE RECORDS SUMMARY | 2025-04-08 19:19 | XMS_ITS | Clinical Summary ---
Author Organization [facility] Address [address] [place] [address] Care Team Providers Care Php Web Developer Name Role Phone Starr ToussaintAnitha Primary Care Provider + [phone] Naomi Hummel FLOATER OPERATOR Unavailable [phone] Allergies Active Allergy Reactions Criticality Noted [...] ; Adjustment Dis w Anxious Mood Immunizations Immunization Administration Dates Next Due COVID-19 MONOVALENT 12+ (Pfizer) 05/30/2021 DT (PEDS <7y) 02/03/1998, 7,10/08/1995,08/17,07/20/1995 DTAP [...] on file Legal Sex Female 3:06 PM LOGGING SPECIALIST Gender Identity Not on file Sexual Orientation [...] ACTION PLAN 1992 ASTHMA CONTROL TEST 1992 PNEUMOCOCCAL VACCINE: PEDIATRICS (0 to 5 YEARS) AND AT-RISK PATIENTS (6 to 49 YEARS) (2 of 2 - PCV) 11/02/2012 11/03/2011 PAP 2013 HPV VACCINE (3 - 3-dose series) 01/07/2019 10/15/2018, 07/22/2007 YEARLY PREVENTIVE VISIT 05/30/2023 05/30/20, 01/03/2022, 07/20/2020, Additional history exists PHQ-2 (once per calendar year) 2024 02/08/2022, 02/08/2022, 01/03/2022, Additional history exists COVID-19 VACCINE ( - 2024- season) 2025 05/30/2021, 11/12/2020, 10/15/2020 INFLUENZA VACCINE (#1) 2025 , 07/05/2020, 04/02/2019, Additional history exists DTAP/TDAP/TD VACCINE (12 - Td or Tdap) 03/28/2026 03/28/2016, 03/28/2016, 11/26/2012, Additional history exists ZOSTER VACCINE (1 of 2) 2042 MENINGITIS VACCINE Aged Out 07/22/2007, 0 07/22/2007, 07/22/2007 No longer eligible based on patient's age to complete this topic HEPATITIS A VACCINE Completed 11/28/2013, 8 HEPATITIS C SCREENING Completed 02/09/2022 HIV SCREENING [...] 02/09/2022 4:23 PM CDT Jess Gonzalez APRN [facility] - BLOOD ORDER ROBIN Final Result [facility] [address] [address], [facility] [phone] * Hepatitis C Screen Reflex to HCV [...] for newborns, infants, and children. Jess Gonzalez VACUUM EVAPORATION OPERATOR [facility] - BLOOD ORDER ROBIN Final Result [facility]End[facility] [address] [facility] [address] Building, [address] [phone] from Last 3 Months or Most Recently Relevant to Health Maintenance Insurance [facility] Advance Directives For more information, please contact: [phone] * Full Code (Latest Code Status on [...] continue PREVIOUSLY ORDERED code status Care Teams Php Web Developer Relationship Specialty Start Date End Date Starr Toussaint PCP - General 04/04/21 Naomi Hummel NP [address] [place] [id number] Assigned PCP 07/19/23
[2025-04-08 19:28] VITALS: BP 161/100; PULSE 98; RESP 20; TEMP 36.2; O2SAT 95; BMI 32.1
--- NOTE | 2025-04-08 20:24 | ED.FEMALEGU ---
HPI - Female Genitourinary General Chief complaint: Urogenital Problems, Female Stated complaint: possible toxic shock Time Seen by Provider: 04/08/25 20:03 History of Present Illness HPI Narrative: This 34-year-old female comes in reporting some lower abdominal pain and generalized malaise. She did not realize that she had a tampon in place for the past 2 weeks. She states that it came out spontaneously and was very odorous. She wonders if she might have toxic shock syndrome. She does arrive here with normal vital signs and blood pressure actually is a bit increased. She does not report any fevers. Related Data Home Medications ?Medication ?Instructions ?Recorded ?Confirmed ergocalciferol (vitamin D2) 1,250 1,250 mcg PO Q7D 12/12/23 10/15/24 mcg (50,000 unit) capsule (Vitamin D2) escitalopram oxalate 20 mg tablet 20 mg PO DAILY 12/12/23 10/15/24 bupropion HCl 75 mg tablet 75 mg PO BID 10/15/24 10/15/24 hydroxyzine HCl 10 mg tablet mg PO 10/15/24 Previous Rx's ?Medication ?Instructions ?Recorded albuterol sulfate 90 mcg/actuation 2 puff inhalation Q4-6H PRN 02/20/24 aerosol inhaler (Ventolin HFA) shortness of breath or wheezing #8.5 grams Allergies Allergy/AdvReac Type Severity Reaction Status Date / Time vancomycin Allergy Intermediate Hives Verified 09/04/24 22:11 Review of Systems Status of ROS: Reports: 10 or more systems reviewed and unremarkable except as noted in History and below Narrative: Constitutional: No fevers, no weight gain or loss. Eyes: No discharge. No vision changes. HENT: No congestion, no sore throat, no ear pain. Cardiovascular: No chest pain, no palpitations. Respiratory: No shortness of breath, no wheezes, no cough. Gastrointestinal: No vomiting, no diarrhea. Lower abdominal pain. Genitourinary: No dysuria, no hematuria. Musculoskeletal: Normal range of motion. Skin: No rashes, no pruritis. Neurological: No dizziness, weakness, sensory change, speech change. Endo/Heme/Allergies: No bruising or bleeding. No polydipsia. Pysch: no suicidality, no anxiety, no insomnia. All other systems reviewed and are negative. [facility] Medical History Bilateral temporomandibular joint pain ?M26.623 - Arthralgia of bilateral temporomandibular joint (ICD-10) Dental caries ?K02.9 - Dental caries, unspecified (ICD-10) Methamphetamine abuse ?F15.10 - Other stimulant abuse, uncomplicated (ICD-10) PTSD (post-traumatic stress disorder) ?F43.10 - Post-traumatic stress disorder, unspecified (ICD-10) Opioid abuse ?F11.10 - Opioid abuse, uncomplicated (ICD-10) Hydradenitis ?L73.2 - Hidradenitis suppurativa (ICD-10) HSV infection ?B00.9 - Herpesviral infection, unspecified (ICD-10) Depression ?F32.A - Depression, unspecified (ICD-10) Chronic headaches ?R51.9 - Headache, unspecified (ICD-10) ?G89.29 - Other chronic pain (ICD-10) Anxiety ?F41.9 - Anxiety disorder, unspecified (ICD-10) Surgical History History of surgery ?Z98.890 - Other specified postprocedural states (ICD-10) Social History Smoking Status: Current every day smoker What tobacco products do you use: cigarettes Do you use any of these nicotine containing products: Vaping Products Second hand tobacco smoke exposure: No How often do you have a drink containing alcohol: never How often do you have six or more drinks on one occasion: Never AUDIT-C Alcohol total score: 0 Non-prescribed substance use: denies use service: No Exam Narrative: Exam Narrative: Constitutional: Well-developed, well-nourished, no acute distress. HEENT: Normocephalic, atraumatic. Neck: Normal range of motion. Nontender. Supple. Heart: Regular. No murmurs. Normal rate. Intact distal pulses. Lungs: Clear to auscultation. No chest discomfort. No wheezes, rhonchi, or rales. Abdomen: Normal bowel sounds. Diffuse tenderness in the lower abdomen. No rebound tenderness. Genitalia: Deferred. Back: No midline tenderness. Normal range of motion. Extremities: Normal range of motion. No injury. Skin: Intact. No rash. Warm. No erythema or pallor. Neurologic: No altered sensation. No weakness. Alert and oriented. Psychiatric: No suicidality. No anxiety or depression. No insomnia. Nursing notes and vitals signs are reviewed. Const: Vital Signs, click to edit/add: Vital Signs - 24 hr 04/08/25 19:28 Temperature 97.1 F L Pulse Rate [Pulse Oximeter] 98 Respiratory Rate 20 Blood Pressure [Ri t Upper Arm] 161/100 H Pulse Oximetry 95 Oxygen Delivery Me thod Room Air Course Vital Signs Vital signs: Initial Vital Signs Temperature 97.1 F L 04/08/25 19:28 Temperature Source Temporal Artery Scan 04/08/25 19:28 Pulse Rate 98 04/08/25 19:28 Pulse Rhythm Regular 04/08/25 19:28 Respiratory Rate 20 04/08/25 19:28 Blood Pressure 161/100 H 04/08/25 19:28 Blood Pressure Mean 120 H 04/08/25 19:28 Blood Pressure Position Sitting 04/08/25 19:28 Pulse Oximetry 95 04/08/25 19:28 Oxygen Delivery Method Room Air 04/08/25 19:28 Vital Signs Temperature 97.1 F L 04/08/25 19:28 Pulse Rate 98 04/08/25 19:28 Respiratory Rate 20 04/08/25 19:28 Blood Pressure 161/100 H 04/08/25 19:28 Pulse Oximetry 95 04/08/25 19:28 Oxygen Delivery Method Room Air 04/08/25 19:28 Temperature 97.1 F L 04/08/25 19:28 Pulse Rate 98 04/08/25 19:28 Respiratory Rate 20 04/08/25 19:28 Blood Pressure 161/100 H 04/08/25 19:28 Pulse Oximetry 95 04/08/25 19:28 Oxygen Delivery Method Room Air 04/08/25 19:28 MDM - Female Genitourinary MDM Narrative Medical decision making narrative: This patient comes in reporting symptoms as described above. She arrives with reassuring vital signs and does not show any sign of sepsis or shock. I did discuss labs and imaging and the patient declined these for now. She was reassurred with her exam and vital signs. I did provide instymed prescriptions for amoxicillin and Toradol. Discharge Plan Discharge Clinical Impression: Abdominal pain, Vaginitis Patient Disposition: Home, Self-Care Condition: Stable Additional Instructions: Take medication as prescribed. Use tuom-ful-mziiody medicines also as needed and directed. Follow up with MD return if worsening symptoms occur. Prescriptions: No Action ergocalciferol (vitamin D2) [Vitamin D2] 1,250 mcg (50,000 unit) capsule 1,250 mcg PO Q7D escitalopram oxalate 20 mg tablet 20 mg PO DAILY albuterol sulfate [Ventolin HFA] 90 mcg/actuation HFA aerosol inhaler 2 puff inhalation Q4-6H PRN (Reason: shortness of breath or wheezing) Qty: 8.5 0RF bupropion HCl 75 mg tablet 75 mg PO BID hydroxyzine HCl 10 mg tablet PO Follow Up/Referrals: Starr Toussaint NP [Primary Care Provider, Family Practice] Stand Alone Forms: [employer] Info Instructions
[2025-04-08 20:36] VITALS: BP 148/85; PULSE 89; RESP 20; TEMP 36.7; O2SAT 95
== END 2025-04-08 20:37 | disposition home or self-care (01) ==
PROVIDERS: Emergency Provider Emergency Medicine Emergency Medical Services; PCP Nurse Practitioner Family
DX: R10.30 Lower abdominal pain, unspecified (principal); N76.0 Acute vaginitis; F17.210 Nicotine dependence, cigarettes, uncomplicated
CPT/HCPCS: 99283; 99284

== ENCOUNTER 2025-06-10 09:50 | Outpatient (CLI) | payer MEDICAID, SELFPAY ==
[2025-06-10 15:07] LABS: Chlamydia DNA Amplified* NOT DETECTED (No Detected); GC DNA Amplified* NOT DETECTED (No Detected)
== END 2025-06-10 09:51 | disposition home or self-care (01) ==
LOC: NFLDUCREF 09:50
PROVIDERS: PCP Nurse Practitioner Family
DX: R30.0 Dysuria (principal)
CPT/HCPCS: 87086; 87491; 87591

== ENCOUNTER 2025-06-23 18:04 | Emergency (ER) | payer MEDICAID, SELFPAY ==
--- OUTSIDE RECORDS SUMMARY | 2025-06-23 18:07 | XMS_ITS | Clinical Summary ---
Author Organization [facility] Address [address] [place] [address] Care Team Providers Care Centrifugal Casting Machine Tender Name Role Phone Starr Toussaint APRN, DAMASO Primary Care Prov ider Allergies Active AllergyReactionsCriticalityNoted DateCommentsCodeineVomiting,Nausea, Lightheadedness,ZgclGdidba65/28/2012 Other reaction(s): Rash ZlkdovahqrtLgvfmunfohaxptrTuk66/06/5445ZmfaaostnoHwrnwgqMcd58/07/2022 Benadryl helps Hydrocodone-QcqcjvawcrfozApngcv76/30/2011 Medications MedicationSigDispense QuantityRefillsLast FilledStart DateEnd DateStatus etonogestreL (NEXPLANON) 68 mg Sdrm implant Inject 1 each (68 mg) under the skin.07/29/2018Active acetaminophen (TYLENOL) 325 mg oral tablet Take 2 tablets (650 mg) by mouth every four (4) to six (6) hours as needed. Active Blood-Glucose Sensor (FREESTYLE DORIS 3 SENSOR) device Indications:Morbid obesity (HCC),Elevated glucose levelUse to monitor glucose per buddhist monk instructions. Apply new sensor every 14 days. 5 each 4Active albuterol HFA (PROVENTIL;VENTOLIN HFA) 90 mcg/actuation Inhl inhaler Indications:Wheezing,Viral illnessInhale 2 puffs every 4 (four) hours as needed. 18 g 4Active VITAMIN D2 1,250 mcg (50,000 unit) oral capsule Indications:Vitamin D deficiencyTAKE 1 CAPSULE BY MOUTH EVERY SEVEN DAYS 4 capsule 5Active brexpiprazole (REXULTI) 0.25 mg oral Tab Indications:MDD (major depressive disorder), recurrent episode, moderate (HCC), ANAM (generalized anxiety disorder),Mood disorderTake 0.25 mg by mouth once daily. 30 tablet 5Active doxycycline hyclate (VIBRAMYCIN) 100 mg oral tablet Indications:Hidradenitis suppurativaTake 1 tablet (100 mg) by mouth twice a day. 28 tablet 5Active buPROPion 75 mg oral tablet Indications:MDD (major depressive disorder), recurrent episode, moderate (HCC), ANAM (generalized anxiety disorder)Take 1 tablet (75 mg) by mouth Twice a Day. 180 tablet 5Active hydrOXYzine (ATARAX) 10 mg oral tablet Indications:Panic attackTake 1-3 tablets (10-30 mg) by mouth twice a day as needed (anxiety). Max dose of 100 mg per 24 hours. 60 tablet 5Active escitalopram oxalate (LEXAPRO) 10 mg oral tablet Indications:MDD (major depressive disorder), recurrent episode, moderate (HCC), ANAM (generalized anxiety disorder),Panic attackTake 3 tablets (30 mg) by mouth once daily. 270 tablet 5Active brexpiprazole (REXULTI) 0.5 mg oral Tab Indications:MDD (major depressive disorder), recurrent episode, moderate (HCC), ANAM (generalized anxiety disorder),Panic attack,Mood disorderTake 1 tablet (0.5 mg) by mouth once daily. 30 tablet 5Active Active Problems ProblemNoted DateDiagnosed DateHepatitis B, furplsp71/22/2022Chronic bilateral low back pain without favklbpg94/12/2022GAD (generalized anxiety disorder) 07/28/2019 Assessment & Plan (01/01/2025 4:02 PM CDT): Orders: brexpiprazole (REXULTI) 0.25 mg oral Tab; Take 0.25 mg by mouth once daily. Nexplanon wfveipvgm36/05/2019PTSD (post-traumatic stress disorder)2017MDD (major depressive disorder), recurrent episode, dvcpeewx65/10/2018 Assessment & Plan (01/01/2025 4:02 PM CDT): Orders: brexpiprazole (REXULTI) 0.25 mg oral Tab; Take 0.25 mg by mouth once daily. Binge ayqwsb4407/04/20173452Wmoqaidliosw73/01/2015Chemical fhdykkgipd52/22/2014sthma 02/12/2006 Overview (10/01/2020): Overview: LW Modifier: Likely EIA LW Onset: 57Odm05 Problem list name updated by automated process. Provider to review LW Modifier: Likely EIA LW Onset: 33Dmu53 ; Asthma NOS Problem list name updated by automated process. Provider to review Resolved Problems ProblemNoted DateDiagnosed DateResolved DateClass 2 obesity due to excess calories without serious comorbidity with body mass index (BMI) of 38.0 to 38.9 in adultellulitis of left lower oaimutmsv93/22/2022 11/17/2022Non-healing skin pprpqz88ellulitis07/14/2019 11/17/2022orderline personality xbcixwej33Recurrent major depressive disorder, in partial egomncawh51Severe episode of recurrent major depressive disorder, without psychotic noztjqrq97/12/2018 05/07/2020Bilateral temporomandibular joint painnemia due to unknown qmrkudmfu12History of methadone use2017 11/17/2022Therapeutic in first fhnswbsyi97 Overview (10/01/2020): On 06/15/17, [facility] Methamphetamine use disorder, moderate, cvzzokqhow48 Overview (11/21/2021): Last Assessment & Plan: Living at [employer]. [facility]. Recently relapsed on Meth yesterday, IV use, did not share needles. Declines STI testing. IVDU (intravenous drug user)Incomplete uwdhziur30/23/2015 06/27/2019Acute blood loss wflqod96History of methamphetamine abuseCesarean delivery nlxvuodxm52Vaginal xzaeeivz80Oligohydramnios, jnudjdkbni81 Methadone maintenance treatment affecting in second trimester Overview (10/01/2020): Methadone maintenance from [place] 150 mg. Please obtain ROLDAN upon admit and fax to [facility] to facilitate dose verification. Please contact Adelia Mathur [phone] at the time of hospital admission. If she is on a split dose, discharge to outpatient MAT can be complicated. Pt has take outs Sunday and Sunday PT instructed to take dose prior to csection. Methadone maintenance is confidential. (Pt's partner/fob is aware) Methadone maintenance from [place] 150 mg. Please obtain ROLDAN upon admit and fax to [facility] to facilitate dose verification. Please contact Adelia Mathur [phone] at the time of hospital admission. If she is on a split dose, discharge to outpatient MAT can be complicated. Pt has take outs Sunday and Sunday PT instructed to take dose prior to csection. Methadone maintenance is confidential. (Pt's partner/fob is aware) Supervision of normal first mtvtdaxtk90Adjustment disorder with ebnumpw22 Overview (10/01/2020): Overview: LW Modifier: and anxiety LW Modifier: and anxiety ; Adjustment Dis w Anxious Mood LW Modifier: and anxiety ; Adjustment Dis w Anxious Mood Overview: LW Modifier: and anxiety ; Adjustment Dis w Anxious Mood Immunizations ImmunizationAdministration DatesNext ClcDYU98/05/1998,03/20/1997,10/18/1996, 10/08/1995,08/17/1995,07/20/1995DTaP (Daptacel)02/03/1998,10/18/1996,10/08/1995, 08/17/1995,07/20/1995DTaP (Infanrix)02/03/1998,03/20/1997,10/18/1996,10/08/1995, 08/17/1995,07/20/1995HIB PRP-T008/17/1995HPV 9-PQXKMN5010/15/2018HPV Quadrivalent 11/28/2013,07/22/2007Hep A Adult11/28/2013Hep A Zkalomlpg09/28/2008Hep B Adult 03/20/1997,10/21/1996,08/17/1995,07/20/1995Hep B Immune By Titer10/21/1996Hep B Hjyimqmld06/26/1997,10/21/1996Influenza (Fluzone 2010-)03/22/2011Influenza (Fluzone MDV 2012-14) 6-35 Mos03/29/2012,05/22/2006Influenza PF (2014-15) 03/29/2012,03/22/2011,05/22/2006Influenza recombinant (FluBlok Quadrivalent PF) 05/30/2021,04/02/2019,06/06/2018,04/09/2017,04/16/2013,03/29/2012,03/22/2011, 05/22/2006Influenza split virus (Fluzone Quadrivalent PF)05/30/2021,04/02/2019, 06/06/2018,04/09/2017,04/16/2013,03/29/2012,03/22/2011,05/22/2006Influenza split virus nbiptddehfld20/11/2021,04/02/2019,06/06/2018,04/09/2017,03/22/2011MMR 02/03/1998,07/20/1995Meningococcal MCV4O (Menveo)07/22/2007Meningococcal MCV4P (Menactra)07/22/2007Meningococcal MPSV4 (Menomune)07/22/2007Pfizer 12+ Yrs Monovalent COVID Vaccine (purple cap)05/30/2021neumococcal Polysaccharide WCRT8805Polio IPV02/03/1998,03/20/1997,08/17/1995,07/20/1995Polio OPV 02/03/1998,03/20/1997,08/17/1995,07/20/1995SPIKEVAX (Moderna) 12+ Yrs Monovalent COVID Vaccine (credit rating inspector)11/12/2020,10/15/2020Tdap1,11/26/2012,03/02/2005 Tqrkxjski47/28/2008,10/08/1995 Family History Medical HistoryRelationCommentsMelanomaFatherDrug AbuseMotherBreast CancerOther DiabetesOtherHeart DiseasePaternal GrandmotherDrug AbuseSister 1RelationStatus CommentsBrotherAliveFatherAliveMotherAliveOtherPaternal GrandmotherSister 1Alive Sister 2Alive Social History Tobacco UseTypesPacks/DayYears UsedDateSmoking Tobacco: Every DayCigarettes0.515 Started: 05/03/2005; Last attempted to quit: 05/03/2020Smokeless Tobacco: Never Tobacco Cessation:Ready to Q uit: Not Asked; Counseling Given: Not Answered Alcohol UseStandard Drinks/WeekCommentsNot Currently0 (1 standard drink = 0.6 oz pure alcohol)AUDIT-CAnswerDate RecordedFrequency of Alcohol ConsumptionNot on file05/23/2024Q2: How many drinks containing alcohol do you have on a typical day when you are drinking?Patient does not drink05/23/2024Frequency of Binge DrinkingNot on file05/23/2024HQ-2AnswerDate RecordedPHQ2 Oflhh81207/21/2023 [employer] - Occupational Stress Questionnaire AnswerDate RecordedDo you feel stress - tense, restless, nervous, or anxious, or unable to sleep at night because yourmind is troubled all the time - these days? Very much07/25/2020xercise Vital SignAnswerDate RecordedOn average, how many days per week do you engage in moderate to strenuous exercise (like a brisk [employer])?6 days01/31/2021On average, how many minutes do you engage in exercise at this level?20 min07/25/2020Hunger Vital SignAnswerDate RecordedWithin the past 12 months, you worried that your food would run out before you got the money to buymore.Sometimes true07/25/2020Within the past 12 months, the food you bought just didn't last and you didn't have money to get more.Sometimes true07/25/2020 PRAPARE - TransportationAnswerDate RecordedIn the past 12 months, has lack of transportation kept you from medical appointments or from getting medications?No 07/25/2020In the past 12 months, has lack of transportation kept you from meetings, work, or from getting things needed for daily living?No07/25/2020 CommentsNoSex and Gender InformationValueDate RecordedSex Assigned at BirthNot on fileLegal HdrLgbnez84/22/2013 6:18 AM CDTGender IdentityFemale 09/28/2022 1:18 PM CDTSexual OrientationNot on fileOccupationIndustryJob Start DateJob End Daterecovery support specialistNot on fileNot on fileNot on file Last Filed Vital Signs Vital SignReadingTime TakenCommentsBlood Zwzshinr068/80107/21/2023 10:48 AM INSTRUMENT MECHANICS SUPERVISOR Wpbrx802805/21/2024 10:48 AM SCFSbpcmmdzetc34.6 ??C (97.9 ??F)05/21/2024 10:48 AM CSTRespiratory Yfnc376411/13/2021 2:52 PM CDTOxygen Ldnxsejmch25%05/21/2024 10:48 AM CSTInhaled Oxygen Concentration--Wkyxpx877.1 kg (275 lb 12.8 oz)05/21/2024 10:48 AM LNCMhmvck401.3 cm (5' 11)05/21/2024 10:48 AM CSTBody Mass Index38.47 05/21/2024 10:48 AM INSTRUMENT MECHANICS SUPERVISOR Plan of Treatment Health MaintenanceDue DateLast DoneCommentsEye Exam1992Pneumococcal Vaccine (2 of 2 - PCV)11/02/2012053422BmjZ4R80/27/, 09/04/2022, 05/30/2022, Additional history existsCOVID-19 Vaccine ( season)/11/2020, 11/12/2020, 10/15/2020Influenza Vaccine (#1) /11/2020, 05/30/2021, 07/05/2020, Additional history existsAnxiety Follow-Up (ANAM-7)reatinine, 09/04/2022, 05/30/2022, Additional history existsDepression Follow-Up (PHQ-9)05/21/2025 05/21/2024Lipid Gxoauzpbu54, 05/30/2022, 02/07/2021, Additional history existsMicroalbumin Q12 Month4Pap Smear /11/2021, 08/06/2018Adult Tetanus Eqmvmgp06/09/2015, 11/26/2012, 03/02/2005RSV Vaccines (1 - 1-dose 75+ series)2067HPV Vaccine Lybbotmrh65/23/2019, 11/28/2013, 07/22/2007Hepatitis C ScreeningCompleted 05/30/2022, 07/20/2020, 07/11/2018Meningococcal B VaccineAged OutNo longer eligible based on patient's age to complete this topic Procedures Procedure NamePriorityDate/TimeAssociated DiagnosisCommentsMICROALBUMIN URINE (BFM / STH ONLY)Eirclte0605/21/2024 11:31 AM INSTRUMENT MECHANICS SUPERVISOR Type 2 diabetes mellitus with hyperglycemia, without long-term current use of insulin (HCC) BASIC METAB IXVFQCXNfqjhfa77/27/2024 11:31 AM INSTRUMENT MECHANICS SUPERVISOR Type 2 diabetes mellitus with hyperglycemia, without long-term current use of insulin (HCC) Morbid obesity (HCC) LIPID PROFILE QPWPFZXPlsumvo30/ 11:31 AM INSTRUMENT MECHANICS SUPERVISOR Type 2 diabetes mellitus with hyperglycemia, without long-term current use of insulin (HCC) Morbid obesity (HCC) Screening for cholesterol level HGB A1C (GLYCO HGB) (BFM / STH USE ONLY)Cxmprah5005/21/2024 11:31 AM INSTRUMENT MECHANICS SUPERVISOR Type 2 diabetes mellitus with hyperglycemia, without long-term current use of insulin (HCC) Morbid obesity (HCC) SHOEMAKER CUSTOM PAP W/REFLEX APTIMA HPV IF ASCU ([facility])Vpsjvee0405/30/2022 2:16 PM INSTRUMENT MECHANICS SUPERVISOR Screening for cervical cancer ACUTE HEPATITIS PANEL ([facility])Uxhjpfm4905/30/2022 12:47 PM INSTRUMENT MECHANICS SUPERVISOR Screening for condition Abnormal laboratory test result from Last 3 Months or Most Recently Relevant to Health Maintenance Results * MICROALBUMIN URINE (BFM / STH ONLY) (05/21/2024 11:31 AM INSTRUMENT MECHANICS SUPERVISOR)ComponentValueRef RangeTest MethodAnalysis TimePerformed AtPathologist SignatureMICROALBULIN, URINE OP7.80.0 - 30.0 mg/gBUFFALO CLINICComment:The microalbumin result reported is a urine albumin-creatinine ratio.Specimen (Source)Anatomical Location / LateralityCollection Method / VolumeCollection TimeReceived Time UrineURINE SPECIMEN OBTAINED BY CLEAN CATCH PROCEDURE / Iupoddl2005/21/2024 11:31 AM INSTRUMENT MECHANICS SUPERVISOR Narrative [facility] - 05/21/2024 4:16 PM INSTRUMENT MECHANICS SUPERVISOR Urine Albumin is <0.6 mg/dL. The Albumin/Creatinine ratio is invalid Authorizing ProviderResult TypeResult StatusStarr Toussaint MAGNETIC PROSPECTING SUPERVISOR, OIL RAG WASHER CHEMISTRY ORDERABLEFinal ResultPerforming OrganizationAddressCity/State/ZIP Code Phone Number [facility] [address] [address], * (ABNORMAL) LIPID PROFILE CASCADE (05/21/2024 11:31 AM INSTRUMENT MECHANICS SUPERVISOR)ComponentValueRef RangeTest MethodAnalysis TimePerformed AtPathologist KppuawaslPXTSHLZZLLW3980 - 200 mg/dLBUFFALO CLINICNON-HDL NOGEWKNLAQY499.7(H)0.0 - 130.0 mg/dLBUFFALO ZABSAFWIIVUJBOWWBYI070.00.0 - 200.0 mg/dLBUFFALO MHKOMODQW34.340.0 - 60.0 mg/dLBUFFALO SZNCFTRFN648.00.0 - 130.0BUFFALO CLINICCHOL HDL RATIO4.0(H)0.0 - 4.0BUFFALO CLINICSpecimen (Source)Anatomical Location / LateralityCollection Method / VolumeCollection TimeReceived TimeBloodVENOUS BLOOD SPECIMEN / Bhhvcax9005/21/2024 11:31 AM INSTRUMENT MECHANICS SUPERVISOR Narrative Authorizing ProviderResult TypeResult Yulissa Toussaint APRN, CNP CHEMISTRY ORDERABLEFinal ResultPerforming OrganizationAddressCity/State/ZIP Code Phone Number [address] [address], * HGB A1C (GLYCO HGB) (BFM / STH USE ONLY) (05/21/2024 11:31 AM INSTRUMENT MECHANICS SUPERVISOR)Component ValueRef RangeTest MethodAnalysis TimePerformed AtPathologist VznwufauuAUWY2H OP5.04.0 - 5.6 %[facility] HOSPITALpecimen (Source)Anatomical Location / LateralityCollection Method / VolumeCollection TimeReceived TimeBloodVENOUS BLOOD SPECIMEN / Dxgerww7905/21/2024 11:31 AM INSTRUMENT MECHANICS SUPERVISOR Narrative Authorizing ProviderResult TypeResult Yulissa Toussaint APRN, CNP CHEMISTRY ORDERABLEFinal ResultPerforming OrganizationAddressCity/State/ZIP Code Phone Number [address] [address], * (ABNORMAL) BASIC METAB PROFILE (05/21/2024 11:31 AM INSTRUMENT MECHANICS SUPERVISOR)ComponentValueRef RangeTest MethodAnalysis TimePerformed AtPathologist SignatureGLUCOSE CASUAL ID8659 - 106 mg/dLBUFFALO CLINICBUN8.97.0 - 20.0 mg/dLBUFFALO CLINICCREATININE 0.69(L)0.70 - 1.50 mg/dLBUFFALO CLINICCALCIUM9.68.5 - 10.4 mg/dLBUFFALO CLINIC ZZRJLI009.9137.0 - 145.0 mmol/LBUFFALO CLINICPOTASSIUM4.33.5 - 5.1 mmol/L [facility]ENTERRUVDYMDQXJBROH795.7(H)98.0 - 107.0 mmol/LBUFFALO KFUJONDS828.9(L)22.0 - 30.0 mmol/LBUFFALO CLINICEST GFR (MDRD)99.2BUFFALO CLINICComment: Calculated GFR for the patient 18 and older:Normal Kidney Function: >/-90Mild Decreased GFR: ? 60 - 89Moderated Decreased GFR: ? 30 - 59Severe Decreased GFR: ? 15 - 29Kidney Failure: ? <15 (or dialysis)If the patient is , the calculated GFR should be multiplied by 1.21. ??Units of measure for GFR = mL/min/1.69r4Moq GFR value is not valid for patients under 18 years of age. ?? Please disregard. Specimen (Source)Anatomical Location / LateralityCollection Method / Volume Collection TimeReceived TimeBloodVENOUS BLOOD SPECIMEN / Lwaabrd3205/21/2024 11:31 AM INSTRUMENT MECHANICS SUPERVISOR Narrative Authorizing ProviderResult TypeResult StatusStarr Toussaint MAGNETIC PROSPECTING SUPERVISOR, OIL RAG WASHER CHEMISTRY ORDERABLEFinal ResultPerforming OrganizationAddressCity/State/ZIP Code Phone Number [facility] [address] [address], * SHOEMAKER CUSTOM PAP W/REFLEX APTIMA HPV IF ASCU ([facility]) (05/30/2022 2:16 PM INSTRUMENT MECHANICS SUPERVISOR) ComponentValueRef RangeTest MethodAnalysis TimePerformed AtPathologist SignatureDiagnosis: ([facility])CommentLABCORP 1Comment: NEGATIVE FOR INTRAEPITHELIAL LESION OR MALIGNANCY. Specimen Adequacy: ([facility])CommentLABC[facility]P 1Comment: Satisfactory for evaluation. Endocervical and/or squamous metaplastic cells (endocervical component) are present. Clinician Provided ICD10: ([facility])CommentLABC[facility]P 2Comment: Z12.4 Performed by:CommentLABC[facility]P 1Comment: Herber Garzon Sr, Foreclosure Paralegal (ASCP) Cyto Comments ([facility]).[facility] 1Note: ([facility])CommentL[facility] 2Comment: The Pap smear is a screening test designed to aid in the detection of premalignant and malignant conditions of the uterine cervix. ??It is not a diagnostic procedure and should not be used as the sole means of detecting cervical cancer. ??Both false-positive and false-negative reports do occur. Test Methodology ([facility])CommentLABCORP 2Comment: This liquid based ThinPrep(R) pap test was screened with the use of an image guided system. Pap Reflex Comment ([facility])CommentLABCORP 1Comment: The HPV DNA reflex criteria were not met with this specimen result therefore, no HPV testing was performed. Specimen (Source)Anatomical Location / LateralityCollection Method / Volume Collection TimeReceived TimePapCERVIX UTERI STRUCTURE / Xtlhiwi8805/30/2022 2:16 PM CST05/30/2022 11:00 PM CSTComment:Pap Narrative [facility] 1 - 06/01/2022 3:09 PM INSTRUMENT MECHANICS SUPERVISOR Performed at: 01 - [facility] [id number] ??[id number] Podiatry Doctor: Lizbeth Chambers MD, Phone: ??[phone] Performed at: ??02 - [facility] [address] ??[id number] Podiatry Doctor: Satnam Garcia MD, Phone: ??[phone] Specimen Comment: Source.............Cervix Specimen Comment: LMP / Prev Treat...None Specimen Comment: No. of containers..01 ThinPrep Vial Authorizing ProviderResult TypeResult StatusStarr Toussaint MAGNETIC PROSPECTING SUPERVISOR, CNPLABCORP ORDERABLESFinal ResultPerforming OrganizationAddressCity/State/ZIP CodePhone Number [facility] 1 [facility] 2 * ACUTE HEPATITIS PANEL ([facility]) (05/30/2022 12:47 PM INSTRUMENT MECHANICS SUPERVISOR)ComponentValueRef RangeTest MethodAnalysis TimePerformed AtPathologist SignatureHepatitis A IgM Antibody ([facility])NegativeNegativeLABCORP 1Hepatitis B Surface Antigen Screen ([facility])NegativeNegativeLABCORP 1Hepatitis B Core IgM Antibody ([facility]) NegativeNegativeLABC[facility]P 1Hepatitis C Virus Antibody ([facility])<0.10.0 - 0.9 s/co ratioLABCORP 1Specimen (Source)Anatomical Location / LateralityCollection Method / VolumeCollection TimeReceived TimeBloodBLOOD SPECIMEN / Unknown 05/30/2022 12:47 PM CST05/29/2022 11:00 PM CSTComment:Blood Narrative [facility] 1 - 05/31/2022 10:06 PM INSTRUMENT MECHANICS SUPERVISOR Performed at: 01 - [facility] [address] ??[id number] Podiatry Doctor: Elvis Barrios MD, Phone: ??[phone] Authorizing ProviderResult TypeResult StatusStarr Toussaint MAGNETIC PROSPECTING SUPERVISOR, CNPLABCORP ORDERABLESFinal ResultPerforming OrganizationAddressCity/State/ZIP CodePhone Number [facility] 1 from Last 3 Months or Most Recently Relevant to Health Maintenance Additional Health Concerns InfectionOnset DateLast IndicatedC. difficile Rule-Out Insurance Advance Directives For more information, please contact: [phone] * Full Code (Latest Code Status on File) Date ActivatedDate InactivatedComments11/13/2021 6:09 AM11/13/2021 10:04 PM QuestionAnswerCommentsHow was code status determined?* Patient Care Teams Team MemberRelationshipSpecialtyStart DateEnd Date Starr Toussaint, MAGNETIC PROSPECTING SUPERVISOR, OIL RAG WASHER [address] [facility]. [facility] [address] [place] [address] PCP - GeneralNurse Practitioner06/28/23
--- OUTSIDE RECORDS SUMMARY | 2025-06-23 18:07 | XMS_ITS | Clinical Summary ---
Author Organization [facility] Address [address] [place] [address] Care Team Providers Care Corrugated Box Machine Operator Name Role Phone Starr Toussaint Julia Primary Care Provider + [phone] Allergies Active AllergyReactionsCriticalityNoted DateCommentsCodeineGI Disturbance,Rash Low06/21/2012HydrocodoneNausea and PiffsnvkIvo21/06/2018 Other reaction(s): Lightheadedness JvcrzotlmhIbvfwjsIfs56/07/2022 Benadryl helps Hydrocodone-AcetaminophenNausea,Hives,Itching,Nausea and Vomiting,Rash,GI OfafagxpdajEmts56/06/2011 Medications * This document contains information received from the source organization and may not represent a complete record from that organization. MedicationSigDispense QuantityRefillsLast FilledStart DateEnd DateStatus naltrexone (DEPADE/REVIA) 50 MG tablet Take 50 mg by mouth At BedtimeActive vitamin D3 (CHOLECALCIFEROL) 50 mcg (2000 units) tablet Take 1 tablet by mouth dailyActive buPROPion (WELLBUTRIN XL) 300 MG 24 hr tablet Take 300 mg by mouth every morningActive busPIRone HCl (BUSPAR) 30 MG tablet Take 30 mg by mouth 2 times dailyActive escitalopram (LEXAPRO) 20 MG tablet Take 20 mg by mouth dailyActive Melatonin 10 MG TABS tablet Take 10 mg by mouth At BedtimeActive acetaminophen (TYLENOL) 325 MG tablet Indications:Cellulitis of left lower extremityTake 2 tablets (650 mg) by mouth every 4 hours as needed for mild pain or fever 30 tablet 01/26/2022ctive bacitracin 500 UNIT/GM external ointment Indications:Cellulitis of left lower extremityApply topically 2 times daily 30 g ctive hydrOXYzine (ATARAX) 25 MG tablet Take 25 mg by mouth 3 times daily as needed for itchingActive docusate sodium (COLACE) 100 MG capsule Indications:Constipation, unspecified constipation typeTake 1 capsule (100 mg) by mouth 2 times daily as needed for constipation 60 capsule ctive fluconazole (DIFLUCAN) 150 MG tablet Indications:Acute vaginitisTake one tablet each day for 3 days 3 tablet ctive prazosin (MINIPRESS) 2 MG capsule Indications:NightmaresTake 1 capsule (2 mg) by mouth At Bedtime 30 capsule ctive etonogestrel (NEXPLANON) 68 MG IMPL 1 each by Subdermal route once Inserted iscontinued Active Problems ProblemNoted DateDiagnosed DateHepatitis B, izjbtsi06/22/2022Cellulitis 2Cellulitis of left lower oajsccoag61/02/2022Class 2 obesity due to excess calories without serious comorbidity with body mass index (BMI) of 38.0 to 38.9 in adult2Chronic bilateral low back pain without sciatica 01/03/2022Tobacco use wggzadqu58/16/2017Pregnancy test csszonkx61/16/2017IVDU (intravenous drug user)11/05/20153544Ptrzcpxsrbkr26/01/5197Mhmhxm13/28/2014 Overview (03/26/2015): Problem list name updated by automated process. Provider to review Chemical luendqmdhq65/22/2014djustment disorder with uoucjzg7012/31/2007 Overview (04/05/2017): Overview: LW Modifier: and anxiety ; Adjustment Dis w Anxious Mood Immunizations ImmunizationAdministration DatesNext DueCOVID-19 MONOVALENT 12+ (Pfizer) 1DT (PEDS <7y)02/03/1998,10/18/1996,10/08/1995,08/17/1995,07/20/1995 DTAP (<7y)02/03/1998,03/20/1997,10/18/1996,10/08/1995,08/17/1995,07/20/1995Flu, Lkricfttmwl92/16/2017,05/22/2006HIB (PRP-T)08/17/1995HPV10/15/2018HPV Texejkolbocy26/28/2008HepB, Ogyfjdhbwim80/29/1997Hepatitis A (VAQTA)(ADULT 19+) 11/28/2013Hepatitis A (Vaqta/Havrix)(Peds 12m-18y)07/22/2007Hepatitis B, Adult (Energix-B/Recombivax HB)03/20/1997,10/21/1996,08/17/1995,07/20/1995Hepatitis B, Peds (Engerix-B/Recombivax HB)03/20/1997,03/20/1997,10/21/1996Historical DTP/aP 02/03/1998,02/03/1998,02/03/1998,03/20/1997,03/20/1997,10/18/1996,10/18/1996, 10/18/1996,10/08/1995,10/08/1995,10/08/1995,08/17/1995,08/17/1995,08/17/1995, 07/20/1995,07/20/1995,07/20/1995Influenza (IIV3) PF03/29/2012,03/22/2011, 05/22/2006Influenza (prior to 2023)03/29/2012,03/22/2011,05/22/2006Influenza Vaccine >6 months,quad, PF05/30/2021,04/02/2019,06/06/2018,06/06/2018,04/09/2017 ,04/16/2013,03/29/2012,03/22/2011,03/22/2011,05/22/2006Influenza Vaccine IM Ages 6-35 Months 4 Valent (PF)04/16/2013,03/29/2012,03/22/2011Influenza Vaccine, 6+MO IM (QUADRIVALENT W/PRESERVATIVES)07/05/2020,04/09/2017MMR (MMRII)02/03/1998, 02/03/1998,07/20/1995,07/20/1995Mantoux Tuberculin Skin Test08/21/2018, 09/19/2012,09/10/2007Meningococcal (Menomune??)07/22/2007Meningococcal ACWY (Menactra??)07/22/2007Meningococcal ACWY (Menveo??)07/22/2007OPV, trivalent, live02/03/1998,03/20/1997,08/17/1995,07/20/1995OPV, uvzzahkdxug29/12/1998, 03/20/1997,08/17/1995,07/20/1995Pneumococcal 23 anlewz0811/03/2011Poliovirus, inactivated (IPV)02/03/1998,03/20/1997,08/17/1995,07/20/1995TDAP Vaccine (Adacel)03/28/2016,11/26/2012,03/02/2005TDAP Vaccine (Boostrix)03/28/2016, 11/26/2012,03/02/2005Varicella (Varivax)07/22/2007,10/08/1995 Family History Medical HistoryRelationCommentsAnxiety DisorderBrotherLearning DisorderBrother Chronic Obstructive Pulmonary DiseaseFatherMelanomaFatherDiabetesMaternal Aunt 1 Thyroid DiseaseMaternal Aunt 1DiabetesMaternal Aunt 2Thyroid DiseaseMaternal Aunt 2Thyroid DiseaseMaternal Aunt 3LUNG DISEASEMaternal Aunt 4Anxiety Disorder Maternal GrandmotherDepressionMaternal GrandmotherLUNG DISEASEMaternal GrandmotherAnxiety DisorderMotherDepressionMotherLUNG DISEASEMotherSubstance AbuseMotherParkinsonismPaternal GrandfatherHeart DiseasePaternal Grandmother MelanomaPaternal GrandmotherAnxiety DisorderSister 1Learning DisorderSister 1 Anxiety DisorderSister 2Substance AbuseSister 2RelationStatusCommentsBrother AliveDaughterAliveFatherAliveMaternal Aunt 1AliveMaternal Aunt 2AliveMaternal Aunt 3AliveMaternal Aunt 4Maternal GrandfatherDeceasedMaternal Grandmother DeceasedMotherAlivePaternal GrandfatherDeceasedPaternal GrandmotherAliveSister 1 AliveSister 2AliveSonAlive Social History Tobacco UseTypesPacks/DayYears UsedDateSmoking Tobacco: FormerSmokeless Tobacco: Never Tobacco Cessation:Ready to Q uit: Yes; Counseling Given: No Comments:Started smoking at age 19. Quit age 30 years Alcohol UseStandard Drinks/WeekCommentsNo0 (1 standard drink = 0.6 oz pure alcohol)PHQ-2AnswerDate RecordedPHQ-2 Tptes5262Adolescent EducationAnswer Date RecordedGetting School Help NeededNot on file3CommentsNo Sex and Gender InformationValueDate RecordedSex Assigned at BirthNot on file Legal ZsuYylngr34/15/2014 3:06 PM CSTGender IdentityNot on fileSexual OrientationNot on fileOccupationIndustryJob Start DateJob End DateNot on fileNot on fileNot on fileNot on file Last Filed Vital Signs Vital SignReadingTime TakenCommentsBlood Itpqrjdy417/9404 3:24 PM CDT Asfej6743/09/2023 3:24 PM WFBIwagazcmqjl24.9 ??C (98.4 ??F)10/01/2022 3:24 PM CDTRespiratory Gfqj528310/01/2022 3:24 PM CDTOxygen Vbyswolmil84%10/01/2022 3:24 PM CDTInhaled Oxygen Concentration--Anyfnj615 kg (280 lb)02/08/2022 3:35 PM CDT Fpivmr867.3 cm (5' 11)02/08/2022 3:35 PM CDTBody Mass Index39.0508 3:35 PM CDT Plan of Treatment Health MaintenanceDue DateLast DoneCommentsADVANCE CARE JSOPRBGN86/10/1993ANNUAL REVIEW OF HM RJGEMQ84 1992ASTHMA ACTION PLAN1992ASTHMA CONTROL TEST 1992PNEUMOCOCCAL VACCINE: PEDIATRICS (0 to 5 YEARS) AND AT-RISK PATIENTS (6 to 49 YEARS) (2 of 2 - PCV)PAP2013HPV VACCINE (3 - 3-dose series), 07/22/2007GAD OKGDHSJBHB22/17/2023 02/08/2022, 01/03/2022, 06/19/2017, Additional history existsPHQ-9002/08/2023 02/08/2022, 01/03/2022, 06/19/2017, Additional history existsYEARLY PREVENTIVE VISIT/11/2021, 01/03/2022, 07/20/2020, Additional history exists COVID-19 VACCINE ( season)/11/2020, 11/12/2020, 10/15/2020INFLUENZA VACCINE (#1)/11/2020, 07/05/2020, 04/02/2019, Additional history existsDTAP/TDAP/TD VACCINE (12 - Td or Tdap)03/28/2026 03/28/2016, 03/28/2016, 11/26/2012, Additional history existsZOSTER VACCINE (1 of 2)2042MENINGITIS VACCINEAged Out07/22/2007, 07/22/2007, 07/22/2007No longer eligible based on patient's age to complete this topicHEPATITIS A VACCINE Ucpmddxsb09/06/2014, 07/22/2007HEPATITIS C PWNCVAFZANdtwvbtep46/18/2022HIV PAWNCMNPBIrjvuxlbz19/18/2022 Procedures Procedure NamePriorityDate/TimeAssociated DiagnosisCommentsHIV ANTIGEN ANTIBODY IKTGJVbtxokp25/18/2022 4:22 PM CDT Routine screening for STI (sexually transmitted infection) HEPATITIS C SCREEN REFLEX TO HCV RNA QUANT AND VICJEUZHKlzeyqf57/18/2022 4:22 PM CDT History of substance use from Last 3 Months or Most Recently Relevant to Health Maintenance Results * HIV Antigen Antibody Combo (02/09/2022 4:22 PM CDT)ComponentValueRef RangeTest MethodAnalysis TimePerformed AtPathologist SignatureHIV Antigen Antibody Combo XssktexubefBzpokmrrfoh08/19/2022 11:00 AM CDTUM SPECIALTY CORE/PROT/ENDO Comment:HIV-1 p24 Ag & HIV-1/HIV-2 Ab Not DetectedSpecimen (Source)Anatomical Location / LateralityCollection Method / VolumeCollection TimeReceived Time BloodSTRUCTURE OF RIGHT UPPER LIMB / UnknownVenipuncture / Vxgpxdn9602/09/2022 4:22 PM CDT02/09/2022 4:23 PM CDT Narrative Authorizing ProviderResult TypeResult StatusJess Gonzalez APRN CNPLAB - BLOOD ORDERABLESFinal ResultPerforming OrganizationAddressCity/State/ZIP Code Phone Number [facility] Specialty Core/Prot/Endo [address] [facility] [address], [address] [place] [address], [facility] [phone] * Hepatitis C Screen Reflex to HCV RNA Quant and Genotype (02/09/2022 4:22 PM CDT)ComponentValueRef RangeTest MethodAnalysis TimePerformed AtPathologist SignatureHepatitis C QdqubjwiUjukxxtywenKjoggvnjefh99/19/2022 11:00 AM CDTUM SPECIALTY CORE/PROT/ENDOSpecimen (Source)Anatomical Location / Laterality Collection Method / VolumeCollection TimeReceived TimeBloodSTRUCTURE OF RIGHT UPPER LIMB / UnknownVenipuncture / Jrhedsh4402/09/2022 4:22 PM CDT02/09/2022 4:23 PM CDT Narrative SPECIALTY CORE/PROT/ENDO - 02/10/2022 11:00 AM CDT Assay performance characteristics have not been established for newborns, infants, and children. Authorizing ProviderResult TypeResult StatusJess Campa Leninmemeednajess CANE PACKER CNPLAB - BLOOD ORDERABLESFinal ResultPerforming OrganizationAddressCity/State/ZIP Code Phone Number [facility] Specialty Core/Prot/Endo [address] [facility] [place] [address], [facility] [phone] from Last 3 Months or Most Recently Relevant to Health Maintenance Insurance * Guarantor: Opal Lan TypeRelation to PatientDate of BirthPhone Billing BndklldIrtyzbtykfFzux14/[birth year][address] [place] [id number] Advance Directives For more information, please contact: [phone] * Full Code (Latest Code Status on File) Date ActivatedDate InactivatedComments01/29/2022 2:05 AM01/31/2022 1:01 PMAll basic and advanced life-sustaining interventions are performed as appropriateQuestion AnswerCommentsCode status determined by:* Discussion with patient/ legal decision maker * Full Code Date ActivatedDate InactivatedComments01/24/2022 5:27 PM01/27/2022 2:47 PMAll basic and advanced life-sustaining interventions are performed as appropriateQuestion AnswerCommentsCode status determined by:* Unable to discuss and no AD/POLST on file; continue PREVIOUSLY ORDERED code status Care Teams Team MemberRelationshipSpecialtyStart DateEnd Date Starr Toussaint [facility] - Kzokhpa70/11/21
[2025-06-23 18:10] VITALS: BP 118/74; PULSE 76; RESP 18; TEMP 36.4; O2SAT 98; BMI 32.1
--- NOTE | 2025-06-23 18:32 | ED.GENADULT ---
HPI - General Adult General Date Seen: 06/23/25 Chief complaint: Skin/Abscess/Foreign Body Stated complaint: possible bilateral cellulitis Time Seen by Provider: 06/23/25 18:19 History of Present Illness HPI narrative: 34-year-old female presenting to the ER today with concern for cellulitis on the top of foot and ankle. Per medical record I see that she was here in August 2024 with concern for lower extremity infection. According to that note she does have a history of IV drug use, now sober more 5 years. She had a history of numerous bouts of cellulitis. During that visit she had a DVT ultrasound is negative. Labs showed a white count of 9.6. Treated for cellulitis with cephalexin. Patient reports that she has had multiple bouts of cellulitis over the years. She several times she has actually required hospitalization for IV antibiotics because of fairly rapidly spreading cellulitis. Once, she says she was septic. She has no recollection of ever being diagnosed with MRSA. She says typically her skin infections get better with cephalexin. She does have history of IV drug use but does not sober now for more than 5 years. She has no previous diagnosis of endocarditis. She is not diabetic or immunosuppressed. Recently her daughter got a CT. This is several weeks ago and since then the patient is an having trouble with itchiness especially at her lower legs. She think she is probably allergic to the cat. She has been is so itchy that she has been scratching at her lower legs and feet and now has several open sores and small scabs. One of the scabs on her left dorsal foot/ankle was draining well with pus yesterday. And now she has some spreading redness around the scabs that are on the dorsum of her right foot. She has little bit of very subtle redness extending about a [address] proximal from the right foot for the right knee. She is not having any fever. No chills. She did have a mild headache today. No other constitutional symptoms. Knowing that she is prone to cellulitis she came to the ER this evening desire to start on antibiotics now, rather than wait until tomorrow try to see her doctor. None of her family members have similar skin reactions or scratches. No known exposure to scabies or bedbugs. Related Data Home Medications ?Medication ?Instructions ?Recorded ?Confirmed escitalopram oxalate 20 mg tablet 20 mg PO DAILY 12/12/23 06/23/25 bupropion HCl 75 mg tablet 75 mg PO BID 10/15/24 06/23/25 brexpiprazole 0.5 mg tablet mg PO 06/23/25 (Rexulti) Previous Rx's ?Medication ?Instructions ?Recorded albuterol sulfate 90 mcg/actuation 2 puff inhalation Q4-6H PRN 02/20/24 aerosol inhaler (Ventolin HFA) shortness of breath or wheezing #8.5 grams Allergies Allergy/AdvReac Type Severity Reaction Status Date / Time vancomycin Allergy Intermediate Hives Verified 06/10/25 09:34 [facility] Medical History Bilateral temporomandibular joint pain ?M26.623 - Arthralgia of bilateral temporomandibular joint (ICD-10) Dental caries ?K02.9 - Dental caries, unspecified (ICD-10) Methamphetamine abuse ?F15.10 - Other stimulant abuse, uncomplicated (ICD-10) PTSD (post-traumatic stress disorder) ?F43.10 - Post-traumatic stress disorder, unspecified (ICD-10) Opioid abuse ?F11.10 - Opioid abuse, uncomplicated (ICD-10) Hydradenitis ?L73.2 - Hidradenitis suppurativa (ICD-10) HSV infection ?B00.9 - Herpesviral infection, unspecified (ICD-10) Depression ?F32.A - Depression, unspecified (ICD-10) Chronic headaches ?R51.9 - Headache, unspecified (ICD-10) ?G89.29 - Other chronic pain (ICD-10) Anxiety ?F41.9 - Anxiety disorder, unspecified (ICD-10) Surgical History History of surgery ?Z98.890 - Other specified postprocedural states (ICD-10) Social History Smoking Status: Current every day smoker What tobacco products do you use: cigarettes Do you use any of these nicotine containing products: Vaping Products Second hand tobacco smoke exposure: No How often do you have a drink containing alcohol: never How often do you have six or more drinks on one occasion: Never AUDIT-C Alcohol total score: 0 Non-prescribed substance use: denies use service: No Exam Narrative: Exam Narrative: Constitutional: Appears well-developed and well-nourished. Alert. Conversant. Non toxic. Polite. HENT: Head: Atraumatic. Nose: Nose normal. Mouth/Throat: Oral mucosa is clear . Mucous membranes are moist. no trismus. Pharynx normal. Tonsils symmetric. No tonsillar enlargement, erythema, or exudate. Eyes: Conjunctivae normal. EOM normal. Pupils equal, round, and reactive to light. No scleral icterus. Neck: Normal range of motion. Neck supple. No tracheal deviation present. Cardiovascular: Normal rate, regular rhythm. No gallop. No friction rub. No murmur heard. Symmetric radial artery pulses Pulmonary/Chest: Effort normal. No stridor. No respiratory distress. No wheezes. No rales. No rhonchi . No tenderness. Musculoskeletal: RUE: Normal range of motion. No tenderness. No deformity LUE: Normal range of motion. No tenderness. No deformity RLE: Normal range of motion. No edema. No tenderness. No deformity LLE: Normal range of motion. No edema. No tenderness. No deformity Lymph: She has subtle erythema of the skin on her right anterolateral dorsal foot and distal gray. No definite ascending lymphangitis up to the knee Neurological: Alert and oriented to person, place, and time. Normal strength. CN II-VII intact. No sensory deficit. GCS eye subscore is 4. GCS verbal subscore is 5. GCS motor subscore is 6. Normal coordination Skin: She has multiple small subcentimeter excoriated scabs on the dorsum both feet, dorsal medial ankles, and lower legs. No scabs on the upper thighs, back, torso, or neck. Face is normal. She has 1 old healed scab on the right medial biceps. There is really not much surrounding erythema or purulent drainage from any the scab safe for she has a small crop of scabs on right foot/ankle with some surrounding erythema. Also subtle erythema less than a cm to around a scab on her left medial ankle. Skin is warm and dry. No rash noted. No pallor. Normal capillary refill. Psychiatric: Normal mood. Normal affect. Const: Vital Signs, click to edit/add: Vital Signs - 24 hr 06/23/25 18:10 Temperature 97.6 F Pulse Rate [Pulse Oximeter] 76 Respiratory Rate 18 Blood Pressure [Ri ght Upper Arm] 118/74 Pulse Oximetry 98 Oxygen Delivery Me thod Room Air Course Vital Signs Vital signs: Initial Vital Signs Temperature 97.6 F 06/23/25 18:10 Temperature Source Temporal Artery Scan 06/23/25 18:10 Pulse Rate 76 06/23/25 18:10 Respiratory Rate 18 06/23/25 18:10 Blood Pressure 118/74 06/23/25 18:10 Blood Pressure Mean 88 06/23/25 18:10 Blood Pressure Position Sitting 06/23/25 18:10 Pulse Oximetry 98 06/23/25 18:10 Oxygen Delivery Method Room Air 06/23/25 18:10 Vital Signs Temperature 97.6 F 06/23/25 18:10 Pulse Rate 76 06/23/25 18:10 Respiratory Rate 18 06/23/25 18:10 Blood Pressure 118/74 06/23/25 18:10 Pulse Oximetry 98 06/23/25 18:10 Oxygen Delivery Method Room Air 06/23/25 18:10 Temperature 97.6 F 06/23/25 18:10 Pulse Rate 76 06/23/25 18:10 Respiratory Rate 18 06/23/25 18:10 Blood Pressure 118/74 06/23/25 18:10 Pulse Oximetry 98 06/23/25 18:10 Oxygen Delivery Method Room Air 06/23/25 18:10 Medical Decision Making MDM Narrative Medical decision making narrative: This patient presents for evaluation of concern for cellulitis. She has scabs and itchiness on both of her lower legs that she thinks is probably an allergy to a cat that recently came into her life. She is now given the CT away. Differential for the scabs is broad. She has no known exposure to bedbugs, scabies. I do not see any other signs of acute allergic reaction or anaphylaxis. No new medications or other reason for her to have SJS or TN. These are not really pustules to suggest disseminated gonococcal infection. There is no petechiae or purpura to suggest meningococcus. She does not have any other symptoms such as abdominal pain, nausea or vomiting, vaginal discharge. The history, physical exam is consistent with cellulitis especially on her right anteromedial ankle and foot.. There do not appear at this time to be any complication of cellulitis including abscess, necrotizing fascitis, lymphangitis, lymphadenitis, osteomyelitis, sepsis, or shock. The patient is not immunosuppressed or diabetic. Supportive outpatient management is indicated with antibiotics. Instymeds for cephalexin 500 mg q.i.d. for 10 days. Patient has had good success with this regimen in the past and has no history of MRSA, to her knowledge. The patient is instructed to follow-up with primary care physician to ensure no progression and rapid resolution and given precautions to return if high fever, spread greater than 2cm outside of the current area, worsening pain, vomiting or any other worsening. Questions answered and return precautions reviewed. Discharge Plan Discharge Clinical Impression: Cellulitis Patient Disposition: Home, Self-Care Condition: Stable Instructions: Cellulitis (ED) Additional Instructions: As we discussed, please start the antibiotic tonight and take a dose now and then again before bedtime. Take the antibiotic 4 times a day for the next 10 days. If you are having problems such as spreading redness, worsening infection, higher fever, or any other problems please come back to the ER right away to be rechecked. Even if you getting better, please get a checkup with her doctor within the next 1 or 2 weeks to double check for the rash. Prescriptions: No Action escitalopram oxalate 20 mg tablet 20 mg PO DAILY albuterol sulfate [Ventolin HFA] 90 mcg/actuation HFA aerosol inhaler 2 puff inhalation Q4-6H PRN (Reason: shortness of breath or wheezing) Qty: 8.5 0RF bupropion HCl 75 mg tablet 75 mg PO BID Rexulti 0.5 mg tablet PO Follow Up/Referrals: Starr Toussaint NP [Primary Care Provider, Family Practice] Stand Alone Forms: [employer] Info Instructions
== END 2025-06-23 19:27 | disposition home or self-care (01) ==
PROVIDERS: Emergency Provider Emergency Medicine; PCP Nurse Practitioner Family
DX: L03.116 Cellulitis of left lower limb (principal); L03.115 Cellulitis of right lower limb; F17.210 Nicotine dependence, cigarettes, uncomplicated
CPT/HCPCS: 99282; 99283